=== PATIENT | male | born 1935 | race Caucasian/White ===

== ENCOUNTER 2024-10-31 17:38 | Inpatient (IN) | payer MEDICARE, SELFPAY ==
[2024-10-31] VITALS (11 sets, daily range): BP systolic 84–124; BP diastolic 51–67; PULSE 65–123; RESP 16–18; TEMP 36.6; O2SAT 94–100; BMI 21.7
--- OUTSIDE RECORDS SUMMARY | 2024-10-31 16:20 | XMS_ITS | Encounter Summary ---
Author Organization [facility] Address [address] [place] [address] Care Team Providers Care Hospice Liaison Name Role Phone Lissette Hardwick Primary Care Provider Reason for Visit * Reason Comments Follow Up Ear pain & confusion Encounter Details Date Type Department Care Team (Late st Contact Info) Description 10/31/2024 4:20 PM CDT Office Visit [facility] [place] [address] [place] [address] Funesjuly, REGISTER OF DEEDS [address] [place] [address] Confusion (Primary Dx); Loss of appetite; Ear pain, left; Other acute back pain Social History Tobacco Use Types Packs/Day Years Used Date Smoking Tobacco: Former Cigarettes Passive Smoke Exposure: Past Smokeless Tobacco: Never Tobacco Cessation:Counseling Given: No Alcohol Use Standard Drinks/Week Comments Not Currently 0 (1 standard drink = 0.6 oz pur e alcohol) Financial Resource Strain Answer Date R ecorded How hard is it for you to pa y for the very basics like food, housing, medical care, and heating? Not hard at all 11/28/2022 Food Insecurity Answer Date Recorded In the past 12 months, have you worried that your food would run out before you had money to buy more? Never true 11/28/2022 In the past 12 months, did y ou run out of food and didn't have money to buy more? Never true 11/28/2022 Transportation Needs Answer Date Record ed In the past 12 months, has l ack of transportation kept you from medical appointments or from getting medications? No 11/28/2022 Lack of Transportation (Non-Medical) Not on file 11/28/2022 Sex and Gender Information Value Date Recorded Sex Assigned at Not on file Legal Sex Male 10:39 AM CDT Gender Identity Not on file Sexual Orientation Not on file documented as of this encounter Last Filed Vital Signs Vital Sign Reading Time Taken Comments Blood Pressure 122/60 10/31/2024 4:26 PM CDT Pulse 99 10/31/2024 4:26 PM CDT Temperature 36.2 C (97.2 F) 10/31/2024 4:26 PM CDT Respiratory Rate 18 10/31/2024 4:26 PM CDT Oxygen Saturation 95% 10/31/2024 4:26 PM CDT Inhaled Oxygen Concentration - - Weight 73.5 kg (162 lb) 10/31/2024 4:26 PM CDT Height 182.9 cm (6') 10/31/2024 4:26 PM CDT Body Mass Index 21.97 10/31/2024 4:26 PM CDT documented in this encounter Progress Notes * Funes, July, REGISTER OF DEEDS - 10/31/2024 4:22 PM CDT Depression Screen Positive: PHQ-2 score >= 3 or PHQ-9 score >= 9 PHQ-2 Total: 0 (10/31/2024 4:23 PM) DEPRESSION PLAN OF CARE His depression screen was negative. (PHQ2 <3, PHQ9 <10, Lovell <11) Chief Complaint Patient presents with Follow Up Ear pain & confusion History of Present Illness The patient is an 89-year-old male who presents to the clinic for ear pain and confusion. He has been experiencing confusion, particularly in the mornings. He has been disoriented, often not recognizing his surroundings or the people around him. His condition seems to fluctuate, with periods of relative normalcy followed by increased confusion. He has been sleeping excessively during the day and becomes frustrated when unable to return home. He was last seen a week ago and appeared to be in good health at that time. However, his condition has deteriorated over the past 3 to 4 days. He has been consuming less than a bottle of water daily for the past two days and has shown interest in drinking 7-Up. He did not take his medication yesterday due to lack of food intake but managed to take them today. He reports a sudden onset of immobility two days ago, which has left him unable to walk. Prior to this, he was in good health and could move around without difficulty. He has been experiencing back pain, which is unusual for him, and describes it as a general discomfort across his entire back. He has not reported any abdominal pain. He experienced brief ringing in his left ear last night,accompanied by dizziness, but these symptoms have not recurred today. His appetite has decreased significantly, and he has not eaten anything today. He reports no difficulty or discomfort during urination. 10 point review of systems is otherwise negative except as mentioned above. Past Medical History: Diagnosis Date Diabetes mellitus (CMS/HCC) Gout HTN (hypertension) Malignant neoplasm (CMS/HCC) liver Current Outpatient Medications Medication Instructions allopurinoL (ZYLOPRIM) 300 mg, Oral, DAILY amLODIPine (NORVASC) 5 mg, Oral, DAILY ascorbic acid (vitamin C) (VITAMIN C) 500 mg, Oral, DAILY ferrous sulfate 325 mg, Oral, DAILY lisinopriL (PRINIVIL) 40 mg, Oral, DAILY metFORMIN (GLUCOPHAGE) 500 mg, Oral, TWO TIMES DAILY WITH MEALS Past Surgical History: Procedure Laterality Date HX KNEE SURGERY Right Past social, family, and medical history reviewed. BP 122/60 Pulse 99 Temp 97.2 ??F (36.2 ??C) Resp 18 Ht 6' (1.829 m) Wt 73.5 kg (162 lb) SpO2 95% BMI 21.97 kg/m?? Physical Exam Physical Exam Constitutional: Appearance: Normal appearance. HENT: Head: Normocephalic. Right Ear: Tympanic membrane and ear canal normal. Left Ear: Tympanic membrane and ear canal normal. Mouth/Throat: Mouth: Mucous membranes are moist. Eyes: Conjunctiva/sclera: Conjunctivae normal. Pupils: Pupils are equal, round, and reactive to light. Cardiovascular: Rate and Rhythm: Normal rate and regular rhythm. Pulses: Normal pulses. Heart sounds: Normal heart sounds. Pulmonary: Effort: Pulmonary effort is normal. Breath sounds: Normal breath sounds. Abdominal: General: Bowel sounds are normal. Palpations: Abdomen is soft. Musculoskeletal: General: Normal range of motion. Skin: General: Skin is warm and dry. Neurological: General: No focal deficit present. Mental Status: He is alert. Psychiatric: Mood and Affect: Mood normal. Assessment & Plan ICD-10-CM ICD-9-CM 1. Confusion R41.0 298.9 CBC WITH DIFFERENTIAL COMPREHENSIVE METABOLIC PANEL POC URINALYSIS DIPSTICK AUTOMATED 2. Loss of appetite R63.0 783.0 CBC WITH DIFFERENTIAL COMPREHENSIVE METABOLIC PANEL POC URINALYSIS DIPSTICK AUTOMATED 3. Ear pain, left H92.02 388.70 4. Other acute back pain M54.89 724.5 Plan - Confusion may be related to a urinary tract infection (UTI) or dehydration. - Unable to do labs at clinic. He is unable to give urine sample. - Discussed with his daughter and son-in-law that they could take him to [facility] to have labs done and leave urine sample for culture. Daughter is concerned that he might get worse over the weekend. Advised it would be best to take him to the ER. Daughter agrees and will take him to ER. ANGEL Valente The author of this note, patient (or authorized membership sales representative), and all other persons present consent to the audio recording of this visit for charting documentation purposes. This note was automatically generated, edited by a Quality Packing Room Worker, and finalized by MAGDA Valente. documented in this encounter Plan of Treatment Scheduled Orders Name Type Priority Associated Diagnoses Order Schedule CBC WITH DIFFERENTIAL Lab Routine Confusion Loss of appetite Expected: 10/31/2024, Expires: 10/31/2025 COMPREHENSIVE METABOLIC PANEL Lab Routine Confusion Loss of appetite Expected: 10/31/2024, Expires: 10/31/2025 POC URINALYSIS DIPSTICK AUTOMATED Point of Care Testing Routine Confusion Loss of appetite Ordered: 10/31/2024 documented as of this encounter Visit Diagnoses Diagnosis Confusion- Primary Unspecified psychosis Loss of appetite Anorexia Ear pain, left Other acute back pain documented in this encounter Care Teams Hospice Liaison Relationship Specialty Start Date End Date Lissette Hardwick DO [address] [place] [address] PCP - General Family Practice 09/04/22 documented as of this encounter
--- OUTSIDE RECORDS SUMMARY | 2024-10-31 17:51 | XMS_ITS | Clinical Summary ---
Author Organization [facility] [address] [facility] Address [address] [place] [address] Phone Care Team Providers Care Pest Control Specialist Name Role Phone Ronen Lissette Deja FUCHS Primary Care Provider Allergies No known active allergies Medications ferrous sulfate 325 mg (65 mg iron) tabletIndications :Other iron deficiency anemia Take 1 Tablet (325 mg) by mouth daily. 90 Tablet 1 09/19/2022 Active ascorbic acid, vitamin C, (Vitamin C) 500 mg tabletIndications :Other iron deficiency anemia Take 1 Tablet (500 mg) by mouth daily. 90 Tablet 1 09/19/2022 Active amLODIPine (NORVASC) 5 mg tabletIndications :Benign hypertension TAKE 1 TABLET(5 MG) BY MOUTH DAILY 100 Tablet 3 12/21/2023 Active lisinopriL (PRINIVIL) 40 mg tabletIndications :Benign hypertension Take 1 Tablet (40 mg) by mouth daily. 100 Tablet 3 01/09/2024 Active metFORMIN (GLUCOPHAGE) 500 mg tabletIndications :Type 2 diabetes mellitus without complication, without long-term current use of insulin (CMS/HCC) TAKE 1 TABLET(500 MG) BY MOUTH TWICE DAILY WITH MEALS 180 Tablet 1 06/29/2024 Active allopurinoL (ZYLOPRIM) 300 mg tabletIndications :Gout, unspecified cause, unspecified chronicity, unspecified site TAKE 1 TABLET(300 MG) BY MOUTH DAILY 90 Tablet 1 09/16/2024 Active Active Problems Problem Noted Date Diagnosed Date History of liver cancer 08/03/2021 Gout 08/03/2021 Type 2 diabetes mellitus wit hout complication, without long-term current use of insulin 08/03/2021 Benign hypertension 08/03/2021 Encounters Date Type Department Care Team Description 10/31/2024 4:20 PM CDT Office Visit [facility] [address] [place] [address] Funes, July, FILTER TANK OPERATOR Confusion (Primary Dx); Loss of appetite; Ear pain, left; Other acute back pain 10/31/2024 Telephone [facility] [address] [place] [address] Lissette Hardwick, DO Clinical Consult Before Scheduling 09/16/2024 Refill [facility] [address] [place] [address] Lissette Hardwick, Gout, unspecified cause, unspecified chronicity, unspecified site 09/10/2024 External Device Data STL ABSTRACTION Provider, Abstract 09/09/2024 External Device Data STL ABSTRACTION Provider, Abstract 08/05/2024 External Device Data STL ABSTRACTION Provider, Abstract from Last 3 Months Immunizations Immunization Administration Dates Next Due Influenza Seasonal Unspecified Formulation IM Family History Medical History Relation Name Comments Cancer Father Heart Disease Mother Relation Name Status Comments Brother 1 Brother 2 Alive Father Mother Social History Tobacco Use Types Packs/Day Years [...] on file Sexual Orientation Not on file Last Filed Vital Signs Vital Sign Reading [...] Mass Index 21.97 10/31/2024 4:26 PM CDT Plan of Treatment Health Maintenance Due Date Last Done Comments DIABETES ANNUAL FOOT EXAM 07/01/1953 DTAP/TDAP/TD VACCINES (1 - Tdap) 1956 PNEUMOCOCCAL VACCINE 50+ YEA RS (1 of 2 - PCV) 1956 ZOSTER VACCINE (1 of 2) 07/01/1987 RSV VACCINE (60+ or ) (1 - 1-dose 75+ series) 2012 DIABETES ANNUAL RETINAL EXAM 12/05/2022, 07/06/2021, 06/27/2021, Additional history exists LDL CHOLESTEROL ANNUAL 09/05/2023 09/04/2022 DIABETES MICROALBUMIN ANNUAL SCREEN 09/20/2023 09/19/2022 DIABETES HBA1C Q 6 MONTHS 06/19/20242023, 11/28/2022, 09/04/2022, Additional history exists INFLUENZA VACCINE (#1) 2024 08/03/2021, 2020 DIABETES: A1C (Auto Order) 12/17/202412/17, 11/28/2022, 09/04/2022, Additional history exists Traditional Medicare (ACO) A nnual Wellness Visit 12/18/2024 12/18/2023, 11/28/2022 Procedures Procedure Name Priority Date/Time Associated Diagnosis Comments HEMOGLOBIN A1C Routine 12/18/2023 10:22 AM CDT Medicare annual wellness visit, subsequent MICROALBUMIN/CREATI NINE RATIO, RANDOM UR Routine 09/19/2022 9:42 AM CDT Type 2 diabetes mellitus without complication, without long-term current use of insulin ([facility]) LIPID PANEL Routine 09/04/2022 11:36 AM CDT Benign hypertension DIABETES EYE EXAM Routine 06/03/2021 from Last 3 Months or Most Recently Relevant to Health Maintenance Results * HEMOGLOBIN A1C (12/18/2023 10:22 AM CDT) HEMOGLOBIN A1C 5.6 <5.7 % of total Hgb [facility] Comment: For the purpose of screening for the presence of diabetes: <5.7% Consistent with the absence of diabetes 5.7-6.4% Consistent with increased risk for diabetes (prediabetes) > or =6.5% Consistent with diabetes This assay result is consistent with a decreased risk of diabetes. Currently, no consensus exists regarding use of hemoglobin A1c for diagnosis of diabetes in children. According to [place] Diabetes Association (ADA) guidelines, hemoglobin A1c <7.0% represents optimal control in non- diabetic patients. Different metrics may apply to specific patient populations. Standards of Medical Care in Diabetes(ADA). ESTIMATED AVERAGE GLUCOSE (MG/DL) 114 mg/dL [facility] ESTIMATED AVERAGE GLUCOSE (MMOL/L) 6.3 mmol/L [facility] Comment: This test was performed on the Bryson flavio c503 platform. Effective 07/09/23, a change in test platforms from the Thakkar Executive Administrator to the Bryson flavio c503 may have shifted HbA1c results compared to historical results. Based on laboratory validation testing conducted at [facility], the Bryson platform relative to the Thakkar platform had an average increase in HbA1c value of < or = 0.3%. This difference is within accepted variability established by the National Glycohemoglobin Standardization Program. Note that not all individuals will have had a shift in their results and direct comparisons between historical and current results for testing conducted on different platforms is not recommended. FASTING:YES FASTING: YES Test Performed at: [facility] [address] [facility] [place] [address] Gregoria Trejo MD Blood 12/18/2023 10:2 2 AM CDT 12/18/2023 10:33 AM CDT Karli MENDEZP CHEMISTRY ORDERABLES Final Resul t [facility] [phone] [facility] [address] [facility] [place] [address] * (ABNORMAL) MICROALBUMIN/CREATININE RATIO, RANDOM UR (09/19/2022 9:42 AM CDT) Creatinine, Urine 89 20 - 320 mg/dL [facility] MICROALBUMIN, URINE 12.5 See Note: mg/dL [facility] Comment: Reference Range: Reference Range Not established MICROALBUMIN/CREAT RATIO, UR 140(H) <30 mcg/mg creat [facility] Comment: The ADA defines abnormalities in albumin excretion as follows: Albuminuria Category Result (mcg/mg creatinine) Normal to Mildly increased <30 Moderately increased 30-299 Severely increased > OR = 300 The ADA recommends that at least two of three specimens collected within a 3-6 month period be abnormal before considering a patient to be within a diagnostic category. Test Performed at: [facility] [address] [facility] [place] [address] Gregoria Trejo MD Urine URINE SPECIMEN OBTAINED BY CLEAN CATCH PROCEDURE / Unknown 09/19/2022 9:42 AM CDT 09/20/2022 6:59 AM CDT us Sarah Su INSTRUCTIONAL LEADER URINE ORDERABLES Final Result [facility] [phone] [facility] [address] [place] [address] [place] [address] * (ABNORMAL) LIPID PANEL (09/04/2022 11:36 AM CDT) CHOLESTEROL 158 <200 mg/dL [facility] HDL 33(L) > OR = 40 mg/dL [facility] TRIGLYCERIDE 109 <150 mg/dL [facility] LDL CALCULATED 104(H) mg/dL (calc) [facility] Comment: Reference range: <100 Desirable range <100 mg/dL for primary prevention; <70 mg/dL for patients with CHD or diabetic patients with > or = 2 CHD risk factors. LDL-C is now calculated using the Raudel calculation, which is a validated novel method providing better accuracy than the Friedewald equation in the estimation of LDL-C. Chadwick SS et al. RUBINA. 2013;310(19): 1573-3926 (http://education.INgrooves/faq/TPM785) CHOL/HDL RATIO 4.8 <5.0 (calc) [facility] TOTAL NON-HDL CHOL(LDL+VLDL) 125 <130 mg/dL (calc) [facility] Comment: For patients with diabetes plus 1 major ASCVD risk factor, treating to a non-HDL-C goal of <100 mg/dL (LDL-C of <70 mg/dL) is considered a therapeutic option. Test Performed at: [facility] [address] [facility] [place] [address] Gregoria Trejo MD Blood 09/04/2022 11:3 6 AM CDT 09/05/2022 5:13 AM CDT Sarah Su NP CHEMISTRY ORDERABLES Final Re sult [facility] [phone] [facility] [address] [place] [address] * DIABETES EYE EXAM (06/03/2021) Abstract Provider HEALTH MAINTENANCE Final Resul t from Last 3 Months or Most Recently Relevant to Health Maintenance Insurance MEDICARE PART A AND B [facility] [id number] Care Teams Pest Control Specialist Relationship Specialty Start Date End Date Lissette Hardwick DO [address] [place] [address] PCP - General Family Practice 09/04/22
--- OUTSIDE RECORDS SUMMARY | 2024-10-31 17:51 | XMS_ITS | Encounter Summary ---
Author Organization [facility] Address [address] [place] [address] Care Team Providers Care Dcs Engineer Name Role Phone Lissette Hardwick DO Primary Care Provider Reason for Visit * Reason Comments Clinical Consult Before Scheduling Encounter Details Date Type Department Care Team (Late st Contact Info) Description 10/31/2024 Telephone [facility] Family Medicine [place] [address] [place] [facility] [place] [address] Lissette Hardwick DO [address] [place] [address] Clinical Consult Before Scheduling Social History Tobacco Use Types Packs/Day Years Used Date Smoking Tobacco: Former Cigarettes Passive Smoke Exposure: Past Smokeless Tobacco: Never Alcohol Use Standard Drinks/Week Comments Not Currently [...] on file documented as of this encounter Miscellaneous Notes * Telephone Encounter - Yolette Guillen RN - 10/31/2024 8:10 AM CDT 10/31/2024 8:10 AM Adult patient complains of Confusion: patient's family notes change in mental status. Daughter isnt sure if he has a uti but says that hehas been more confused than normal. He seems to improve as the day goes on. Symptoms started last Sunday when she went to see him. Patient oriented to unable to determine as he was not on the line with me Denies recent medication changes (benadryl or OTCs, pain/sleep/anxiety meds). Denies ETOH use. Denies neurological deficits (facial droop, unilateral weakness/numbness, vision change, change in speech). Patient is not experiencing rigors. INFORMATIONAL MESSAGE ONLY. Appointment scheduled regarding this concern: 10/31/2024 Karli Funes, MAGDA {TIP Inform patient/caller - [facility] sonography technician is available . If the condition worsens or newsymptoms develop and they are concerned, they may call their providers office and our after-hour greeting will give you the option to speak with a Nurse with [facility] sonography technician. Adult patient complains of ear pain: Onset of new/worsening symptoms: sunday Affected ear(s): Left The patient has the following symptoms or concerns: [] Fever [] Sore throat [] Nasal drainage [] Sinus pressure or pain [] Drainage from ear Color: [] Recently been swimming [] Injury to ear such as trauma or putting something into ear What: [] Has tried medication or treatment at home Medications/Treatments tried: Other pertinent information: says his ear feels plugged INFORMATIONAL MESSAGE ONLY. Appointment scheduled regarding this concern: 10/31/2024 Karli Funes, MAGDA De La Vega RN * Telephone Encounter - Tanvi Latif PCA - 10/31/2024 8:08 AM CDT Copied from [facility] #[id number]. Topic: Symptomatic Care >> Oct 31, 2024 8:05 AM Tanvi Basilio wrote: Has this patient seen any provider (current or former) at the requested clinic in the past? Yes, Select the appropriate age range and symptom Patient has symptoms and is seeking care. Caller Name: rupert Lagos Callback Number: [phone] Call Notes: confused, possible dehydrated since Sunday, he has hurt his back somehow and L ear pain. Patient is not wanting to drink or eat much. Age Range/Symptom: Adult 18+ - Confusion, behaving abnormally, impaired consciousness, cannot be awakened Transferred to N line and Elzbieta answered call. documented in this encounter Plan of Treatment Not on file documented as of this encounter Visit Diagnoses Not on filedocumented in this encounter Care Teams Dcs Engineer Relationship Specialty Start Date End Date Lissette Hardwick DO [address] [place] [address] PCP - General Family Practice 09/04/22 documented as of this encounter
--- NOTE | 2024-10-31 18:00 | CTR_ITS ---
PROCEDURE INFORMATION: Exam: CT Head Without Contrast Exam date and time: 10/31/2024 6:20 PM Age: 89 years old Clinical indication: Altered mental status/memory loss; Confusion with general weakness; Additional info: Encephalopathy, altered mental status TECHNIQUE: Imaging protocol: Computed tomography of the head without contrast. Radiation optimization: All CT scans at this facility use at least one of these dose optimization techniques: automated exposure control; mA and/or kV adjustment per patient size (includes targeted exams where dose is matched to clinical indication); or iterative reconstruction. COMPARISON: No relevant prior studies available. RADIATION DOSE METRICS: Total DLP (mGy-cm): 1013.69 FINDINGS: Brain: Moderate white matter disease and volume loss are identified. There is no acute infarct or edema. No hemorrhage. Cerebral ventricles: No ventriculomegaly. Paranasal sinuses: Visualized sinuses are unremarkable. No fluid levels. Mastoid air cells: Visualized mastoid air cells are well aerated. Bones: Unremarkable. No acute fracture. Soft tissues: Unremarkable. CT/CT head wo con* [id number] IMPRESSION: There are no acute concerning abnormalities.
--- NOTE | 2024-10-31 18:00 | XRR_ITS ---
PROCEDURE INFORMATION: Exam: XR Chest Exam date and time: 10/31/2024 6:03 PM Age: 89 years old Clinical indication: Other: Weakness; Encephalopathy; AMS; Cough TECHNIQUE: Imaging protocol: Radiologic exam of the chest. Views: 1 view. COMPARISON: No relevant prior studies available. FINDINGS: Lungs: Unremarkable. No consolidation. Pleural spaces: Unremarkable. No pleural effusion. No pneumothorax. Heart/Mediastinum: Unremarkable. No cardiomegaly. Bones/joints: Unremarkable. XR/XR chest 1V portable [id number] IMPRESSION: No acute findings.
--- NOTE | 2024-10-31 18:07 | ED_ITS ---
HPI - Altered Mental Status 2 General: Chief Complaint: Altered Mental Status Stated Complaint: confusion Time Seen by Provider: 10/31/24 17:59 History of Present Illness: 89-year-old man with a history of hypert ension and diabetes who presents the emergency room with weakness and confusion. He lives at home alone and has a daughter and her who live about 15 minutes away. A few days ago they noticed he was not answering his phone. 3 days ago they went to his home and he had misplaced the phone. At that time he noticed he seemed more confused and had been complaining of some low back pain and would not hardly get up out of the chair. Confusion has not improved so he brought him in. He is alert and oriented to person but does seem a little slow in answering questions. No known fever. He does not complain of any chest pain or cough. No abdominal pain. He is slightly hypotensive on presentation with a blood pressure 86/52. Pulse was 65. Related Data Allergies Allergy/AdvReac Type Severity Reaction Status Date / Time No Known Allergies Allergy Verified 10/31/24 17:58 Review of Systems 2 Narrative: Constitutional symptoms: Negative except as documented in HPI. Skin symptoms: Negative except as documented in HPI. Eye symptoms: Negative except as documented in HPI. ENMT symptoms: Negative except as documented in HPI. Respiratory symptoms: Negative except as documented in HPI. Cardiovascular symptoms: Negative except as documented in HPI. Gastrointestinal symptoms: Negative except as documented in HPI. Genitourinary symptoms: Negative except as documented in HPI. Musculoskeletal symptoms: Negative except as documented in HPI. Neurologic symptoms: Negative except as documented in HPI. Psychiatric symptoms: Negative except as documented in HPI. Endocrine symptoms: Negative except as documented in HPI. Physical Exam 2 Narrative: General: Alert, no acute distress. Skin: Warm, dry. Head: Normocephalic, atraumatic. Neck: Supple, trachea midline. Eye: Extraocular movements are intact. Ears, nose, mouth and throat: Tacky oral mucosa Cardiovascular: Regular, Normal peripheral perfusion. Respiratory: Lungs are clear to auscultation, respirations are non-labored, breath sounds are equal, Symmetrical chest wall expansion. Gastrointestinal: Soft, Nontender, Non distended Musculoskeletal: Normal ROM, no deformity. Neurological: Little slow to answer questions but is oriented to person and place. No focal neurological deficit observed. Psychiatric: Cooperative Course 2 Vital Signs: Vital signs: Vital Signs Temperature 97.8 F 10/31/24 17:45 Pulse Rate 102 H 10/31/24 19:00 Respiratory Rate 16 10/31/24 19:00 Blood Pressure 102/63 10/31/24 19:00 Pulse Oximetry 100 10/31/24 19:00 Oxygen Delivery Me thod Room Air 10/31/24 19:00 MDM - Altered Mental Status Medical Decision Making Medical decision making: Differential diagnosis for patient presenting with generalized weakness including but not limited to and based on the above HPI, review of systems and physical exam: Sepsis. Dehydration. Renal failure. Electrolyte abnormalities. Anemia. Congestive heart failure. Hypotension. Coronary syndrome. Hepatitis. Cirrhosis. Infections such as pneumonia, urinary tract infection, [place]ne illness, Cellulitis, Viral infections including influenza and Covid-19. Workup: labwork and lab/exam driven imaging ordered to evaluate, rule in and rule out above pathologies. CT head: No acute intracranial process. no intracranial hemorrhage, no evidence of infarct. no evidence of acute fracture.This was reviewed and interpreted by myself the ER physician. Chest x-ray: No acute process. No infiltrate. No pneumothorax. This was reviewed and interpreted by myself the emergency room physician. I also reviewed the radiology report. Lab Review: Laboratory results were reviewed and interpreted by myself the emergency room physician. No leukocytosis. No anemia. Potassium is elevated at 6. BUN and creatinine are elevated at 142 and 6.8. Urinalysis shows 50-100 reds which is probably from Perdomo catheterization. However there are so 21-50 white so Rocephin is being given. I reviewed the patient's medical record. Patient has no previous visits here. No records. No lab work. Reexamination: Patient remained stable. No increased work of breathing. No significant changes in mentation. No focal motor deficits. Blood pressure has been a bit labile but systolic on admission is 120. He is dropped down a couple times into the 80s. I spoke with findings and plan at length with the patient's daughter. Consultation: I spoke Dr. Espana who agrees to admission. He recommends nephrology consultation. Consultation: I spoke with Dr. Yeager who is on-call for nephrology who will evaluate the patient. She agrees with treatment of potassium and admission to the ICU. Assessment and plan: Renal failure Hyperkalemia Dehydration Urinary tract infection Uremia Encephalopathy ? 2 L normal saline bolus ? IV Rocephin ? 10 units IV insulin, 1 amp calcium gluconate, 250 mL D10 bolus, Kayexalate -I discussed the patient with the hospitalist on-call who is admitting the patient. - Discussed findings and plan with patient. Answered any questions. - All laboratory values were reviewed and interpreted personally by myself, the ER physician - All imaging was reviewed and interpreted personally by myself, the ER physician. - Evaluation and treatment of this problem were appropriate in the emergency setting Critical Care: -I spent a total of >35 minutes of critical care time managing the patient, independent of any other practitioner. -The time involved in the performance of separately reportable procedures was not counted towards critical care time. Lab Data 10/31/24 18:11 10/31/24 18:11 Radiology Impressions Chest X-Ray 10/31/24 18:00 IMPRESSION: No acute findings. Head CT 10/31/24 18:00 IMPRESSION: There are no acute concerning abnormalities. Abdomen/Pelvis CT 10/31/24 19:15 IMPRESSION: There are no acute concerning abnormalities. Laboratory Results WBC 10.00 10^3/uL (3.29-11.43) 10/31/24 18:11 RBC 4.20 10^6/uL (3.85-5.65) 10/31/24 18:11 Hgb 12.90 g/dL (11.27-16.99) 10/31/24 18:11 Hct 37.5 % (37-53) 10/31/24 18:11 MCV 89.3 fl (82-101) 10/31/24 18:11 MCH 30.7 pg (27-33) 10/31/24 18:11 MCHC 34.4 g/dL (30-55) 10/31/24 18:11 RDW 13.6 % (12.1-15.1) 10/31/24 18:11 Plt Count 167 10^3/cmm (157-399) 10/31/24 18:11 MPV 11.2 fL (7.4-10.4) H 10/31/24 18:11 Neut % (Auto) 80.7 % 10/31/24 18:11 Lymph % (Auto) 11.7 % 10/31/24 18:11 [place] % (Auto) 6.1 % 10/31/24 18:11 Eos % (Auto) 0.9 % 10/31/24 18:11 Baso % (Auto) 0.2 % 10/31/24 18:11 Neut # (Auto) 8.07 10^3/uL (1.8-7.7) H 10/31/24 18:11 Lymph # (Auto) 1.2 10^3/uL (0.8-4.8) 10/31/24 18:11 [place] # (Auto) 0.6 10^3/uL (0.2-0.9) 10/31/24 18:11 Eos # (Auto) 0.1 10^3/uL (0.0-0.8) 10/31/24 18:11 Baso # (Auto) 0.0 10^3/uL (0.0-0.1) 10/31/24 18:11 Nucleated RBC % (auto) 0 % 10/31/24 18:11 Nucleated RBCs # 0.0 /100WBC 10/31/24 18:11 Sodium 134 mmol/L (136-145) L 10/31/24 18:11 Potassium 6.0 mmol/L (3.5-5.1) H 10/31/24 18:11 Chloride 100 mmol/L (98-107) 10/31/24 18:11 Carbon Dioxide 12 mmol/L (22-29) L 10/31/24 18:11 Anion Gap 28.0 (5-19) H 10/31/24 18:11 BUN 142 mg/dL (8-23) H* 10/31/24 18:11 Creatinine 6.8 mg/dL (0.7-1.2) H* 10/31/24 18:11 GFR Calculation Not Reportable 10/31/24 18:11 Glucose 144 mg/dL (65-115) H 10/31/24 18:11 Calculated Osmolality 327 mOsm/kg (285-295) H 10/31/24 18:11 Lactic Acid 1.9 mmol/L (0.5-2.2) 10/31/24 18:11 Calcium 9.2 mg/dL (8.5-10.5) 10/31/24 18:11 Total Bilirubin 0.4 mg/dL (0.15-1.2) 10/31/24 18:11 AST 8 U/L (0-40) 10/31/24 18:11 ALT 9 U/L (0-41) 10/31/24 18:11 Alkaline Phosphatase 99 U/L (40-130) 10/31/24 18:11 C-Reactive Protein 6.7 mg/L (0.0-4.9) H 10/31/24 18:11 Total Protein 7.2 g/dL (6.6-8.7) 10/31/24 18:11 Albumin 4.3 g/dL (3.5-5.2) 10/31/24 18:11 Globulin 2.9 g/dL (1.3-4.6) 10/31/24 18:11 Urine Color [place] (Yellow) A 10/31/24 19:05 Urine Appearance Cloudy (CLEAR) A 10/31/24 19:05 Urine pH 5.0 (5-7) 10/31/24 19:05 Ur Specific [place] 1.016 (1.005-1.030) 10/31/24 19:05 Urine Protein Trace (Negative) A 10/31/24 19:05 Urine Glucose (UA) Negative (Normal) 10/31/24 19:05 Urine Ketones Trace (Negative) 10/31/24 19:05 Urine Blood 3+ (Negative) A 10/31/24 19:05 Urine Nitrate Negative (Negative) 10/31/24 19:05 Urine Bilirubin Negative (Negative) 10/31/24 19:05 Urine Urobilinogen 1.0 mg/dL (Negative) 10/31/24 19:05 Ur Leukocyte Esterase 2+ (Negative) A 10/31/24 19:05 Urine RBC 51-100 /hpf (0-2) H 10/31/24 19:05 Urine WBC 21-50 /hpf (0-5) H 10/31/24 19:05 Ur Squamous Epith Cells 0-5 /hpf (0-5) 10/31/24 19:05 Amorphous Sediment 1+ /hpf 10/31/24 19:05 Urine Bacteria Trace /hpf (NONE) 10/31/24 19:05 Hyaline Casts 54.20 /lpf 10/31/24 19:05 All radiology interpretation(s) finalized by discharge Discharge Plan Discharge Patient Disposition: Admitted As Inpatient Clinical Impression: Renal failure, Acute hyperkalemia, Urinary tract infection, Dehydration, Uremia, Encephalopathy Condition: Stable Coding Level of Care Code ED Licensed Final Expense Agents for Malissa Peters
[2024-10-31 18:24] LABS: Hematocrit 37.5 % (37-53); Hemoglobin 12.90 g/dL (11.27-16.99); Mean Corpuscular HGB Conc 34.4 g/dL (30-55); Mean Corpuscular Hemoglobin 30.7 pg (27-33); Mean Corpuscular Volume 89.3 fl (82-101); Nucleated Red Blood Cells % 0 %; Platelet Count 167 10^3/cmm (157-399); Red Blood Count 4.20 10^6/uL (3.85-5.65); White Blood Count 10.00 10^3/uL (3.29-11.43)
[2024-10-31 18:41] LABS: Lactic Sepsis W/Reflex 1.9 mmol/L (0.5-2.2)
[2024-10-31 18:42] LABS: Alanine Aminotransferase 9 U/L (0-41); Albumin Level 4.3 g/dL (3.5-5.2); Alkaline Phosphatase 99 U/L (40-130); Aspartate Amino Transferase 8 U/L (0-40); Calcium 9.2 mg/dL (8.5-10.5); Carbon Dioxide 12 mmol/L (22-29); Chloride 100 mmol/L (98-107); Creatinine Clr Calc Pharmacy 8.1827; Globulin 2.9 g/dL (1.3-4.6); Glucose 144 mg/dL (65-115); Sodium 134 mmol/L (136-145); Total Protein 7.2 g/dL (6.6-8.7)
[2024-10-31 19:04] LABS: Osmolality Calculated 327 mOsm/kg (285-295)
[2024-10-31 19:05] LABS: Anion Gap 28.0 (5-19); Potassium 6.0 mmol/L (3.5-5.1)
[2024-10-31 19:06] LABS: Blood Urea Nitrogen 142 mg/dL (8-23)
[2024-10-31 19:09] LABS: Glucose Urine UA Negative (Normal); Nitrate Urine Negative (Negative); Specific Gravity, Urine 1.016 (1.005-1.030)
--- NOTE | 2024-10-31 19:15 | CTR_ITS ---
PROCEDURE INFORMATION: Exam: CT Abdomen And Pelvis Without Contrast Exam date and time: 10/31/2024 7:26 PM Age: 89 years old Clinical indication: Abnormal findings; Abnormal lab test; Abnormal kidney function lab tests; Prior surgery; Surgery date: 6+ months; Surgery type: Gb; Acute renal failure with hematuria. ; Additional info: Renal failure, R/O obstructive uropathy TECHNIQUE: Imaging protocol: Computed tomography of the abdomen and pelvis without contrast. Radiation optimization: All CT scans at this facility use at least one of these dose optimization techniques: automated exposure control; mA and/or kV adjustment per patient size (includes targeted exams where dose is matched to clinical indication); or iterative reconstruction. COMPARISON: CR (CHEST, ) 10/31/2024 6:03 PM RADIATION DOSE METRICS: Total DLP (mGy-cm): 436.94 FINDINGS: Liver: There has been partial right hepatectomy. There has been partial hepatectomy. No bowel obstruction. Gallbladder and biliary ducts: There has been cholecystectomy. Pancreas: Normal. No ductal dilation. Spleen: Normal. No splenomegaly. Adrenal glands: Normal. No mass. Kidneys and ureters: Normal. No hydronephrosis. Stomach and bowel: There has been partial colectomy. No bowel obstruction or wall thickening. Appendix: No evidence of appendicitis. Intraperitoneal space: Unremarkable. No free air. No significant fluid collection. Vasculature: There is vascular atherosclerotic calcifications. Lymph nodes: Unremarkable. No enlarged lymph nodes. Urinary bladder: Unremarkable as visualized. Reproductive: The prostate is enlarged and measures 5.7 cm in diameter. Bones/joints: Degenerative change is identified in the spine. There is no evidence for acute fracture or malalignment. Soft tissues: There is a periumbilical hernia containing small bowel. CT/CT abdomen pelvis wo con [id number] IMPRESSION: There are no acute concerning abnormalities.
[2024-10-31 19:23] LABS: UA Slide Review UA Slide Review Perf
[2024-10-31] MEDS: cefTRIAXone 1,000 mg SDV 1000 MG IVP (20:14)
--- NOTE | 2024-10-31 20:45 | ECG_ITS ---
[facility] Test Date: 2024-10-31 Pat Name: Vladimir Salgado Department: Room: Gender: Male [employer] Operator: : 1935 Requested By: Cuauhtemoc Espana Order Number: [id number] Anya MD: Judson Wiggins M.D. Measurements Intervals [place] Rate: 101 P: 61 NH: 180 QRS: 79 QRSD: 89 T: 63 QT: 345 QTc: 448 Interpretive Statements SINUS TACHYCARDIA No previous ECG available for comparison Electronically Signed On 11-04-2024 14:59:16 CDT by Judson Wiggins M.D. [id number] [id number]
[2024-10-31 21:15] LABS: ABG PCO2 25.4 mmHg (35-45); ABG PH Result 7.20 (7.35-7.45); Alveolar-Arterial Oxygen Gradi 3.0 mmHg (5-10); Arterial Blood Gas Hematocrit 36.3 % (42-52); Blood Gas Operator Identificat JDB; Blood Gas Sample Site Brachial, right; Blood Gas Sample Type Arterial; Carboxyhemoglobin 0.7 %THgb (0.4-20.1); Glucose Level-ABG 113.0 mg/dL (70-115); HCO3 ABG 9.9 mmol/L (22-26); Ionized Calcium Level - ABG 1.2 mmol/L (1.1-1.4); Methemoglobin 1.0 % (0.4-1.5); Oxygen Saturation ABG 97.1; PO2 ABG 92.6 mmHg (80.0-100.0); PO2 FiO2 Ratio Arterial Blood 440; Potassium Level - ABG 4.9 mmol/L (3.5-5.0); Sodium Level - ABG 135.0 mmol/L (131-143)
--- NOTE | 2024-10-31 21:27 | P.HP_ITS ---
Providers/Chief Complaint 2 Admitting Physician: Bhaskar Machado MD Chief Complaint: confusion History of Present Illness Vladimir Salgado is a 89 year old male With past medical history of hypertension, type 2 diabetes mellitus who follows up with PCP at [facility] was brought into the ER today by his daughter and son-in-law because of worsening confusion over the last 4 days. Patient lives by himself at baseline. Last known well was a week ago. As per the daughter who was at bedside they were trying to get in touch with him for over 3 days but when they could not get him the response over the phone they drove to his house where they saw him sitting up in the chair slightly confused. They got the patient to their house on Sunday. Today is Sunday. Since then they have been trying to feed and make him drink more liquid but as he was not improving not make making much urine they brought him to the ER. In the ER he was found to have renal failure, hyperkalemia Review of Systems 2 General: Reports: 10 or more systems reviewed and unremarkable except in HPI and below Const: Denies: fever(s), chills, body aches, change in appetite, change in weight, malaise, night sweats, diaphoresis, change in sleep pattern, daytime sleepiness or snoring Eyes: Denies: change in vision, blurry vision, photophobia, eye discomfort or eye discharge ENMT: Denies: throat pain, enlarged tonsils, hoarseness, mouth pain, oral sores, dry mouth, tinnitus, nasal congestion or post nasal drip Card: Denies: chest pain, palpitations, irregular heart rhythm, edema, swelling of feet/ankles, lightheadedness, syncope, pre-syncope, dyspnea on exertion, orthopnea, leg pain with exertion or acrocyanosis Resp: Denies: dyspnea, productive cough, non-productive cough, wheezing, stridor, pain on inspiration, change in phlegm color, hemoptysis or chest congestion GI: Denies: abdominal pain, nausea, vomiting, hematemesis, coffee ground emesis, dysphagia, heartburn, diarrhea, constipation, bloating, GI cramping, change in bowel habits, pain on defecation, hematochezia or melena : Denies: flank pain, difficulty urinating, dysuria, urinary frequency, urinary urgency, urinary hesitancy, urinary dribbling, difficulty starting urination, change in urine stream, nocturia or hematuria Musc: Denies: neck pain, back pain, extremity pain, joint pain, joint swelling, joint redness, joint stiffness or limited range of motion Neuro: Denies: headache(s), numbness in extremities, weakness in extremities, sensory changes, lack of coordination, difficulty walking, frequent falls, dizziness, vertigo, confusion, Slurred speech present, difficulty communicating thoughts or seizure-like activity Psych: Denies: anxiety, depression, mood swings, panic attacks, hopelessness or irritability Endo: Denies: polyuria, polydipsia, tired all the time, cold intolerance, excessive sweating, flushing or heat intolerance [place]/Lymph: Denies: easy bruising or easy bleeding All/Imm: Denies: tongue swelling, facial swelling or acute wheezing Medications/Allergies Allergies Allergy/AdvReac Type Severity Reaction Status Date / Time No Known Allergies Allergy Verified 10/31/24 17:58 PFSH Acute 2 PFSH: Medical History (Updated 10/31/24 @ 21:32 by Cuauhtemoc Espana MD) History of colon cancer History of renal cell carcinoma Type 2 diabetes mellitus Hypertension Surgical History (Updated 10/31/24 @ 21:32 by Cuauhtemoc Espana MD) History of resection of liver History of partial colectomy History of partial nephrectomy Vitals/I&O/Wt Last Vital Signs Temp 97.8 F 10/31/24 17:45 Pulse 102 H 10/31/24 19:00 Resp 16 10/31/24 19:00 BP 102/63 10/31/24 19:00 Pulse Ox 100 10/31/24 19:00 O2 Del Method Room Air 10/31/24 19:00 10/31/24 10/31/24 10/31/24 06:59 14:59 22:59 Intake Total 1000 / 1000 Balance 1000 / 1000 Weight last 48 hrs Weight 72.575 kg Physical Exam 2 Narrative: General: No acute distress, AO x3, sunken eyes, bitemporal wasting, dehydrated, chronically sick appearing HEENT: PERRLA, pupils bilaterally equal and reactive Chest: Normal vesicular breath sounds, no added sounds, equal good air entry bilaterally CVS: S1-S2 regular, no murmurs, no tachycardia, no gallops, no rubs Abdomen: Soft, nontender, no organomegaly, bowel sounds present Neuro: No focal deficits, no facial deformity, AO x3, power 3/5 in all limbs Data 10/31/24 18:11 10/31/24 18:11 Micro: Microbiology 10/31/24 18:14 Blood Culture - Preliminary Blood SPECIMEN COLLECTED 10/31/24 18:11 Blood Culture - Preliminary Blood SPECIMEN COLLECTED A&P Assessment and plan 1. Encephalopathy: Most likely in setting of uremia and hyperkalemia. Infectious cause less likely. Stroke less likely. Will check CT head. LFTs within normal limits. Frequent reorientation. 2. Renal failure: Not sure of medication which the patient is on. Possibly on lisinopril. Medical reconciliation done for nephrotoxic drugs. Patient does not remember being told of kidney problems in the past. 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 Currently in renal failure with metabolic acidosis, uremia. Nephrology consult. ABG stat. Bicarb drip at 100 cc/h. Perdomo catheterization. Strict input output charting, daily weights. Check urine lites, urine creatinine, urine eosinophil, appreciate UA, check hepatitis panel, SPEP UPEP. CT abdomen pelvis negative for obstructive nephropathy 3. Acute hyperkalemia: Potassium of 6. Stat EKG. Will treat with D10 and 10 units of insulin, Kayexalate 30 g one-time, calcium gluconate 1 g IV one-time. Monitor BMP every 6 hour. 4. Uremia: 5. High anion gap metabolic acidosis: Bicarb drip as above. 6. Hypertension: Goal blood pressure less than 140/90 mmHg. Hypotensive on admission. Most likely in setting of dehydration. Continue to monitor blood pressures. Goal blood pressure with mean over 65. Continue to monitor. 7. Type 2 diabetes mellitus: Check A1c. Insulin sliding scale at low-dose protocol if needed. Plan: CODE STATUS: Discussed in detail with the patient. Daughter and son-in-law will be the DPOA. Patient is agreeable to be full code for now. He would like to think further before making any decision for now. In case if needed he is also agreeable for dialysis. Famotidine for PUD prophylaxis Renal dialysis diet Heparin 5000 every 12 hourly for DVT prophylaxis PDMP PDMP Reviewed: Not Reviewed Attestations 2 Medical Necessity Statement*: Admission for more than 2 midnights for management of acute renal failure with uremia, high-end of metabolic acidosis, hyperkalemia leading to encephalopathy Critical Care Time: The high probability of a clinically significant, sudden or life threatening deterioration of the patient's [cardiac, renal] system(s) required my full and direct attention, intervention and personal management. The critical care time is as shown. This time is in addition to time spent performing any reported procedures but includes the following: [x] Data and vital sign review and interpretation [x] Patient assessment, examination and intervention [x] Documentation [x] Medication orders and management Critical Care Time (min): 65 Coding Level of Care Code Critical Care >/= 30 minutes Critical care time (in minutes): 65 The high probability of a clinically significant, sudden or life threatening deterioration, as referenced in this documentation, required my full and direct attention, intervention and personal management. The critical care time shown is in addition to time spent performing any reported separately billable procedures and includes the following: [x] Data and vital sign review and interpretation [x ] Patient assessment, examination and intervention [x] Medication orders and management [x] Patient/Family updates as able [x] Care Coordination and Documentation. Diagnoses Encephalopathy G93.40 Renal failure N19 Acute hyperkalemia E87.5 Uremia N19 High anion gap metabolic acidosis E87.29 Hypertension I10 Type 2 diabetes mellitus E11.9
[2024-10-31] MEDS: calcium gluconate 0.1 gm/mL 10% SDV 10mL 1 GM IVP (21:35)
[2024-10-31 21:36] LABS: Anion Gap 25.3 (5-19); Calcium 8.2 mg/dL (8.5-10.5); Carbon Dioxide 10 mmol/L (22-29); Chloride 104 mmol/L (98-107); Creatinine Clr Calc Pharmacy 9.1217; Glucose 112 mg/dL (65-115); Potassium 5.3 mmol/L (3.5-5.1); Sodium 134 mmol/L (136-145)
[2024-10-31 21:38] LABS: Lactic Sepsis W/Reflex 0.7 mmol/L (0.5-2.2)
[2024-10-31 21:42] LABS: Procalcitonin 0.19 ng/mL (0-0.5)
[2024-10-31 21:55] LABS: Osmolality Calculated 322 mOsm/kg (285-295)
[2024-10-31 21:56] LABS: Blood Urea Nitrogen 135 mg/dL (8-23)
[2024-10-31 22:06] LABS: Thyroid Stimulating Hormone 2.29 uIU/mL (0.27-4.20)
[2024-10-31 22:08] LABS: Estmated Average Glucose 126; Hemoglobin A1C 6.0 % (4.0-6.0)
--- NOTE | 2024-10-31 22:13 | PM.CONSULT ---
Providers/Reason For Consult Consulting Physician/Specialty*: kailyn/Nephrology Reason for Consult*: GUS Attending Physician: Cuauhtemoc Espana MD History of Present Illness History of Present Illness Vladimir Salgado is a 89 year old male Patient is 89-year-old male with past medical history of hypertension, type 2 diabetes was brought to the emergency department due to altered mental status. Also noted to have poor p.o. intake. Patient is a poor historian. The emergency department he was noted to be tachycardic, blood pressures borderline low. Lab data significant for sodium of 134 potassium of 6.0 CO2 of 12 BUN of 142 and creatinine of 6.8. Review of Systems Narrative: cannot obtain full ROS Medications/Allergies Home Medications ?Medication ?Instructions ?Recorded ?Confirmed ?Last Taken ?Type allopurinol 300 mg tablet 300 mg PO DAILY 11/01/24 11/01/24 10/31/24 History amlodipine 5 mg tablet 5 mg PO DAILY 11/01/24 11/01/24 10/31/24 History dorzolamide 22.3 mg-timolol 6.8 1 drp ophthalmic (eye) BID 11/01/24 11/01/24 10/31/24 History mg/mL eye drops lisinopril 40 mg tablet 40 mg PO DAILY 11/01/24 11/01/24 10/31/24 History metformin 500 mg tablet 500 mg PO BID 11/01/24 11/01/24 10/31/24 History Allergies Allergy/AdvReac Type Severity Reaction Status Date / Time No Known Allergies Allergy Verified 10/31/24 17:58 Current Medications Generic Name Dose Route Start Last Admin Trade Name Freq PRN Reason Stop Dose Admin Dextrose 250 mls @ 1,000 mls/hr 10/31/24 20:26 10/31/24 21:36 D10w IV 1,000 mls/hr PRN PRN Administration HYPOGLYCEMIA Sodium Bicarbonate 150 meq/ 1,150 mls @ 100 mls/hr 10/31/24 21:00 10/31/24 21:39 Dextrose IV 100 mls/hr .[id number] KALYANI Administration PFSH Acute PFSH: Medical History (Updated 11/01/24 @ 09:27 by Namita Gillette MD) History of colon cancer History of renal cell carcinoma Type 2 diabetes mellitus Hypertension Surgical History (Updated 10/31/24 @ 21:32 by Cuauhtemoc Espana MD) History of resection of liver History of partial colectomy History of partial nephrectomy Vitals/I&O/Wt Last Vital Signs Temp 97.8 F 10/31/24 17:45 Pulse 102 H 10/31/24 19:00 Resp 16 10/31/24 19:00 BP 102/63 10/31/24 19:00 Pulse Ox 100 10/31/24 19:00 O2 Del Method Room Air 10/31/24 19:00 10/31/24 10/31/24 10/31/24 06:59 14:59 22:59 Intake Total 1000 / 1000 Balance 1000 / 1000 Weight last 48 hrs Weight 72.575 kg Physical Exam Narrative: Awake , confused PEERLA S1S2 RRR per report Lungs clear per reprot Abd - oft , non tender per report Ext - no edema Data 11/01/24 05:18 11/01/24 05:18 Micro: Microbiology 10/31/24 18:14 Blood Culture - Preliminary Blood SPECIMEN COLLECTED 10/31/24 18:11 Blood Culture - Preliminary Blood SPECIMEN COLLECTED A&P Assessment and plan 1. GUS (acute kidney injury): 1. Acute kidney injury: Associated with severe hyperkalemia and metabolic acidosis, likely prerenal etiology -Check renal ultrasound, urine electrolytes and urine analysis and UPCR -Baseline labs not available, started on bicarbonate drip and repeat labs show improvement. No acute indication for dialysis currently but if no improvement will likely need to start hemodialysis. 2. History of hypertension holding lisinopril 3. History of diabetes hold, holding metformin 4. Anion gap metabolic acidosis: In the setting of poor p.o. intake, on bicarbonate drip 5. Severe hyperkalemia: Medical management, low K diet Patient evaluated using audiovisual cart. Time spent 40 minutes PDMP PDMP Reviewed: Not Reviewed Consult Attestations Medical Necessity Statement[facility] C[facility] Level of Care Code Acute Code for [facility] Fwd Diagnoses GUS (acute kidney injury) N17.9
[2024-10-31] MEDS: insulin regular-human 100 units/1 mL 10 UNIT IVP ×2 (22:19→22:20)
[2024-11-01] VITALS (69 sets, daily range): BP systolic 58–164; BP diastolic 36–99; PULSE 68–122; RESP 12–33; TEMP 36.3–36.8; O2SAT 91–100
[2024-11-01] MEDS: heparin 5,000 unit/mL INJ 1 mL 5000 UNIT SUBCUT ×2 (00:57→11:59)
[2024-11-01 01:13] LABS: Iron 77 ug/dL (59-158); Total Iron Binding Capacity 184 mcg/dl; Unsaturated Iron Binding 107 ug/dL (112-347)
[2024-11-01 01:43] LABS: Anion Gap 25.1 (5-19); Calcium 8.5 mg/dL (8.5-10.5); Carbon Dioxide 11 mmol/L (22-29); Chloride 103 mmol/L (98-107); Creatinine Clr Calc Pharmacy 11.3211; Glucose 82 mg/dL (65-115); Potassium 4.1 mmol/L (3.5-5.1); Sodium 135 mmol/L (136-145)
[2024-11-01 01:51] LABS: Osmolality Calculated 319 mOsm/kg (285-295)
[2024-11-01 01:54] LABS: Blood Urea Nitrogen 125 mg/dL (8-23)
[2024-11-01 01:58] LABS: Vitamin B12 394 pg/mL (232-1245)
--- NOTE | 2024-11-01 04:19 | PC.NURSE ---
Pt confused and only able to tell this nurse his name and . Pt has stated he does not know what state we are in sometimes, other times, pt states we are in [place]. Pt unable to tell this nurse what year it is. Pt states It's 19-something . This nurse has told pt we are in [place], [place] and that it is 2024 after every neuro check. Pt continually removing BP cuff and EKG leads despite being educated on why they need to be placed.
[2024-11-01 05:26] LABS: Hematocrit 33.2 % (37-53); Hemoglobin 11.90 g/dL (11.27-16.99); Mean Corpuscular HGB Conc 35.8 g/dL (30-55); Mean Corpuscular Hemoglobin 31.2 pg (27-33); Mean Corpuscular Volume 87.1 fl (82-101); Nucleated Red Blood Cells % 0 %; Platelet Count 116 10^3/cmm (157-399); Red Blood Count 3.81 10^6/uL (3.85-5.65); White Blood Count 7.22 10^3/uL (3.29-11.43)
[2024-11-01 05:45] LABS: Alanine Aminotransferase 8 U/L (0-41); Albumin Level 3.6 g/dL (3.5-5.2); Alkaline Phosphatase 80 U/L (40-130); Anion Gap 23.8 (5-19); Aspartate Amino Transferase 8 U/L (0-40); Calcium 8.3 mg/dL (8.5-10.5); Carbon Dioxide 13 mmol/L (22-29); Chloride 103 mmol/L (98-107); Creatinine Clr Calc Pharmacy 13.2079; Globulin 2.3 g/dL (1.3-4.6); Glucose 121 mg/dL (65-115); Magnesium 1.5 mg/dL (1.7-2.3); Potassium 3.8 mmol/L (3.5-5.1); Sodium 136 mmol/L (136-145); Total Protein 5.9 g/dL (6.6-8.7)
[2024-11-01 05:46] LABS: Cholesterol 115 mg/dL (0-200); HDL Cholesterol 28 mg/dL (60-100); Triglycerides 145 mg/dL (0-150)
[2024-11-01 05:51] LABS: Procalcitonin 0.18 ng/mL (0-0.5)
[2024-11-01 05:56] LABS: Osmolality Calculated 322 mOsm/kg (285-295)
[2024-11-01 05:57] LABS: Blood Urea Nitrogen 120 mg/dL (8-23)
--- NOTE | 2024-11-01 10:42 | P.PN_ITS ---
Subjective 2 Subjective: remains confused Medications: Reviewed: Yes Vitals/I&O/Wt Last Vital Signs Temp 98.3 F 11/01/24 00:30 Pulse 105 H 11/01/24 08:00 Resp 17 11/01/24 08:00 BP 86/64 11/01/24 07:00 Pulse Ox 94 11/01/24 07:00 O2 Del Method Room Air 11/01/24 01:55 10/31/24 11/01/24 11/01/24 22:59 06:59 14:59 Intake Total 2500 / 2500 1013.333 / 3513.333 100 / 100 Output Total 550 / 550 Balance 2500 / 2500 463.333 / 2963.333 100 / 100 Weight last 48 hrs Weight 72 kg Weight 72.575 kg Physical Exam 2 Narrative: Awake , confused PEERLA S1S2 RRR per report Lungs clear per reprot Abd - oft , non tender per report Ext - no edema Urinary Catheter Management: Perdomo: Cath Placed During This Visit: yes Reason for Continuing Indwelling Catheter: Accurate Measurement of Urinary Output in Critically Ill Patients Urinary Catheter Date of Insertion: 11/01/24 Urinary Catheter Time of Insertion: 00:01 Data 11/01/24 05:18 11/01/24 05:18 Micro: Microbiology 10/31/24 18:14 Blood Culture - Preliminary Blood SPECIMEN COLLECTED 10/31/24 18:11 Blood Culture - Preliminary Blood SPECIMEN COLLECTED A&P Assessment and plan 1. GUS (acute kidney injury): 1. Acute kidney injury: Associated with severe hyperkalemia and metabolic acidosis, likely prerenal etiology -CT abd , no hydronephrosis , UA with trace protein , + blood , Urine electrolytes pending , add serologies -Baseline labs not available, started on bicarbonate drip . No acute indication for dialysis currently and renal fxn improving with IVFs 2. History of hypertension holding lisinopril 3. History of diabetes hold, holding metformin 4. Anion gap metabolic acidosis: In the setting of poor p.o. intake, on bicarbonate drip 5. Severe hyperkalemia: Medical management, low K diet Patient evaluated using audiovisual cart. Time spent 40 minutes PDMP PDMP Reviewed: Not Reviewed Attestations 2 Medical Necessity Statement*: per [facility] Coding Level of Care Code Acute Code for [facility] Diagnoses GUS (acute kidney injury) N17.9
[2024-11-01] MEDS: magnesium sulfate premix 1 GM/100 ML PIGGYBACK IV (10:45)
[2024-11-01 10:46] LABS: PCP Screen Urine Negative (Negative)
[2024-11-01 10:50] LABS: Potassium, Radom Urine 11 mmol/L; Urine Random Chloride 45 mmol/L; Urine Random Sodium 52 mmol/L
[2024-11-01] MEDS: dexmedeTOMIDine 0.9 % NaCL 400 MCG/100 ML PREMIX IV (11:04)
[2024-11-01] MEDS: haloperidol inj 5 mg/mL INJ 1 mL 1 MG IM (11:59)
[2024-11-01] MEDS: erythromycin Op Oint 1 gm 1 APPLIC EYE-BOTH ×4 (12:00→21:05)
[2024-11-01] MEDS: norepinephrine 4 MG/250 ML BAG 15 MG IV (13:55)
--- NOTE | 2024-11-01 15:31 | P.PN_ITS ---
Subjective 2 Subjective: Overnight patient has had few episodes of hypotension with blood pressure in high 80s to low 90s systolic. Today morning examination patient is awake but confused. Awake and alert to himself, seems to be having visual hallucinations. Later in the day seen with daughter at bedside. Remains on room air. Urine output of only 550 cc. Vitals/I&O/Wt Last Vital Signs Temp 98.3 F 11/01/24 00:30 Pulse 68 11/01/24 14:00 Resp 21 H 11/01/24 13:50 BP 113/57 11/01/24 14:00 Pulse Ox 94 11/01/24 07:00 O2 Del Method Room Air 11/01/24 14:00 11/01/24 11/01/24 11/01/24 06:59 14:59 22:59 Intake Total 1013.333 / 3513.333 3360.45 / 3360.45 5.75 / 3366.20 Output Total 550 / 550 Balance 463.333 / 2963.333 3360.45 / 3360.45 5.75 / 3366.20 Weight last 48 hrs Weight 72 kg Weight 72.575 kg Physical Exam 2 Narrative: General: No acute distress, confused, AO x 1 to 2, sunken eyes, bitemporal wasting, dehydrated, chronically sick appearing HEENT: PERRLA, pupils bilaterally equal and reactive Chest: Normal vesicular breath sounds, no added sounds, equal good air entry bilaterally CVS: S1-S2 regular, no murmurs, no tachycardia, no gallops, no rubs Abdomen: Soft, nontender, no organomegaly, bowel sounds present Neuro: No focal deficits, no facial deformity, AO x3, power 3/5 in all limbs Urinary Catheter Management: Perdomo: Cath Placed During This Visit: yes Reason for Continuing Indwelling Catheter: Accurate Measurement of Urinary Output in Critically Ill Patients Urinary Catheter Date of Insertion: 11/01/24 Urinary Catheter Time of Insertion: 00:01 Data 11/02/24 04:13 11/02/24 04:13 Micro: Microbiology 10/31/24 18:14 Blood Culture - Preliminary Blood SPECIMEN COLLECTED 10/31/24 18:11 Blood Culture - Preliminary Blood SPECIMEN COLLECTED A&P Assessment and plan 1. Encephalopathy: Most likely in setting of uremia. Infectious cause less likely. Stroke less likely. Will check CT head if does not improve in next 24 hours. LFTs within normal limits. Frequent reorientation. Sitter if needed. Haldol 1 mg every 4 hours as needed. Can try Precedex drip. 2. Renal failure: Appreciate medical reconciliation. Most likely a combination of lisinopril, metformin. Medical reconciliation done for nephrotoxic drugs. Patient does not remember being told of kidney problems in the past. 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 Currently in renal failure with metabolic acidosis, uremia. Appreciate nephrology recommendations. Continue bicarb drip at 100 cc/h. Perdomo catheterization. Strict input output charting, daily weights. Appreciate urine lites, urine creatinine, urine eosinophil, urinalysis. Will request repeat urinalysis. CT on pelvis negative for obstructive nephropathy. 3. Hypotension: Maintain mean over 65. Hypotensive earlier in the day. Most likely in setting of dehydration. If not able to maintain can plan of Levophed depending on the goals of blood pressure. 4. Acute hyperkalemia: Monitor every 12 hourly. Treatment according to goal of potassium around 4. 5. Uremia: 6. High anion gap metabolic acidosis: Bicarb drip as above. 7. Hypertension: Goal blood pressure less than 140/90 mmHg. 8. Type 2 diabetes mellitus: Appreciate A1c. Will hold off on sliding scale. Hypoglycemia protocol. Plan: CODE STATUS: Discussed in detail with the patient. Daughter and son-in-law will be the DPOA. Patient is agreeable to be full code for now. He would like to think further before making any decision for now. In case if needed he is also agreeable for dialysis. Famotidine for PUD prophylaxis Clear liquid diet Heparin 5000 every 12 hourly for DVT prophylaxis PDMP PDMP Reviewed: Last Reviewed 11/02/24 10:03 by Cuauhtemoc Espana MD Attestations 2 Medical Necessity Statement*: Requires further hospitalization for management of metabolic encephalopathy in setting of uremia due to renal failure, high anion gap metabolic acidosis, hypotension. Critical Care Time: The high probability of a clinically significant, sudden or life threatening deterioration of the patient's [renal, cardiac] system(s) required my full and direct attention, intervention and personal management. The critical care time is as shown. This time is in addition to time spent performing any reported procedures but includes the following: [x] Data and vital sign review and interpretation [x] Patient assessment, examination and intervention [x] Documentation [x] Medication orders and management Critical Care Time (min): 70 Coding Level of Care Code Critical Care >/= 30 minutes Critical care time (in minutes): 70 The high probability of a clinically significant, sudden or life threatening deterioration, as referenced in this documentation, required my full and direct attention, intervention and personal management. The critical care time shown is in addition to time spent performing any reported separately billable procedures and includes the following: [x] Data and vital sign review and interpretation [x ] Patient assessment, examination and intervention [x] Medication orders and management [x] Patient/Family updates as able [x] Care Coordination and Documentation. Diagnoses Encephalopathy G93.40 Renal failure N19 Hypotension I95.9 Acute hyperkalemia E87.5 Uremia N19 High anion gap metabolic acidosis E87.29 Hypertension I10 Type 2 diabetes mellitus E11.9
[2024-11-01 15:59] LABS: Anion Gap 18.7 (5-19); Calcium 7.9 mg/dL (8.5-10.5); Carbon Dioxide 19 mmol/L (22-29); Chloride 104 mmol/L (98-107); Glucose 184 mg/dL (65-115); Osmolality Calculated 320 mOsm/kg (285-295); Potassium 3.7 mmol/L (3.5-5.1); Sodium 138 mmol/L (136-145)
[2024-11-01 16:00] LABS: Glucose Urine UA Negative (Normal); Nitrate Urine Negative (Negative); Specific Gravity, Urine 1.013 (1.005-1.030)
[2024-11-01] MEDS: haloperidol inj 5 mg/mL INJ 1 mL 1 MG IVP ×2 (16:01→23:11)
[2024-11-01 16:05] LABS: Add Urine Microscopic? YES
[2024-11-01 16:18] LABS: Creatinine Clr Calc Pharmacy 19.8119
[2024-11-01 16:20] LABS: Blood Urea Nitrogen 95 mg/dL (8-23)
[2024-11-01 16:22] LABS: Urine Random Sodium 52 mmol/L
--- NOTE | 2024-11-01 17:04 | PC.NURSE ---
pt remained confused and agitated throughout day had episode of brief hypotension with precedex and haldol on board gave iv fluid bolus and started levophed for short time , weaned off within hour has refused to eat or drink much today with increasing agitation one on one sitter order obtained and sitter placed , daughter here for visit aware of confusion
[2024-11-01] MEDS: haloperidol inj 5 mg/mL INJ 1 mL IVP (17:30)
[2024-11-01] MEDS: dorzolamide/timolol Op Soln 10 mL Btl 1 DROP EYE-RIGHT (17:30)
--- NOTE | 2024-11-01 19:38 | PC.NURSE ---
MAR Upon initial assessment, patient's precedex drip administering at 0.2 mcg/kg/hr while MAR displayed 0.6 mcg/kg/hr. MAR updated to reflect actual administration.
[2024-11-02] VITALS (111 sets, daily range): BP systolic 78–143; BP diastolic 43–96; PULSE 60–104; RESP 7–28; TEMP 36.2–36.8; O2SAT 92–98
--- NOTE | 2024-11-02 00:31 | PC.NURSE ---
Heparin Patient's platelet count noted to be decreased from 167 to 116 on 11/01/24. 5000 units heparin due subq; Dr. Sellers contacted and verification received to administer medication as ordered.
[2024-11-02] MEDS: heparin 5,000 unit/mL INJ 1 mL 5000 UNIT SUBCUT ×2 (00:53→13:46)
[2024-11-02] MEDS: dexmedeTOMIDine 0.9 % NaCL 400 MCG/100 ML PREMIX IV (03:53)
[2024-11-02 04:35] LABS: Hematocrit 32.4 % (37-53); Hemoglobin 11.00 g/dL (11.27-16.99); Mean Corpuscular HGB Conc 34.0 g/dL (30-55); Mean Corpuscular Hemoglobin 30.3 pg (27-33); Mean Corpuscular Volume 89.3 fl (82-101); Nucleated Red Blood Cells % 0 %; Platelet Count 108 10^3/cmm (157-399); Red Blood Count 3.63 10^6/uL (3.85-5.65); White Blood Count 5.75 10^3/uL (3.29-11.43)
--- NOTE | 2024-11-02 04:46 | PC.NURSE ---
Blood Pressure Patient's blood pressure intermittently low while resting, currently 78/[address] Sellers contacted and order received for 500 ml NS bolus IV once.
[2024-11-02 04:57] LABS: Alanine Aminotransferase 9 U/L (0-41); Albumin Level 3.3 g/dL (3.5-5.2); Alkaline Phosphatase 73 U/L (40-130); Anion Gap 17.6 (5-19); Aspartate Amino Transferase 16 U/L (0-40); Blood Urea Nitrogen 75 mg/dL (8-23); Calcium 8.0 mg/dL (8.5-10.5); Carbon Dioxide 26 mmol/L (22-29); Chloride 103 mmol/L (98-107); Creatinine Clr Calc Pharmacy 27.7367; Globulin 2.2 g/dL (1.3-4.6); Glucose 174 mg/dL (65-115); Magnesium 1.5 mg/dL (1.7-2.3); Osmolality Calculated 322 mOsm/kg (285-295); Potassium 3.6 mmol/L (3.5-5.1); Sodium 143 mmol/L (136-145); Total Protein 5.5 g/dL (6.6-8.7)
--- NOTE | 2024-11-02 06:25 | PC.NURSE ---
Stool Sample Multiple liquid, mucoid bowel movements over night. Dr. Sellers notified and order received to collect stool sample for c diff test.
[2024-11-02 07:13] LABS: C.Diff PCR (Lab) NEGATIVE (Negative)
--- NOTE | 2024-11-02 07:41 | PC.NURSE ---
more awake this am aware who president is but continues to think he is in [place] and see a girl in [facility]. will talk with staff and redirect continues to be restless and pull at lines , taking po liquids this am not difficulty , off precedex and levophed only on bicarb gtt at this time
[2024-11-02] MEDS: dorzolamide/timolol Op Soln 10 mL Btl 1 DROP EYE-RIGHT ×2 (08:28→17:32)
[2024-11-02] MEDS: erythromycin Op Oint 1 gm 1 APPLIC EYE-BOTH ×4 (08:29→19:59)
--- NOTE | 2024-11-02 09:24 | P.PN_ITS ---
Subjective 2 Subjective: no new compllaints BP low last night Medications: Reviewed: Yes Vitals/I&O/Wt Last Vital Signs Temp 97.2 F L 11/02/24 06:00 Pulse 96 11/02/24 08:30 Resp 19 H 11/02/24 08:30 BP 109/69 11/02/24 08:30 Pulse Ox 95 11/02/24 08:00 O2 Del Method Room Air 11/02/24 06:00 11/01/24 11/02/24 11/02/24 22:59 06:59 14:59 Intake Total 1236.27 / 4596.72 515.34 / 5112.06 250 / 250 Output Total 1000 / 1000 1525 / 2525 Balance 236.27 / 3596.72 -1009.66 / 2587.06 249 / 249 Weight last 48 hrs Weight 71.078 kg Weight 72 kg Weight 72.575 kg Physical Exam 2 Narrative: Awake , confused PEERLA S1S2 RRR per report Lungs clear per reprot Abd - oft , non tender per report Ext - no edema Urinary Catheter Management: Perdomo: Cath Placed During This Visit: yes Reason for Continuing Indwelling Catheter: Accurate Measurement of Urinary Output in Critically Ill Patients Urinary Catheter Date of Insertion: 11/01/24 Urinary Catheter Time of Insertion: 00:01 Data 11/02/24 04:13 11/02/24 04:13 Micro: Microbiology 10/31/24 18:14 Blood Culture - Preliminary Blood NEGATIVE TO DATE 10/31/24 18:11 Blood Culture - Preliminary Blood NEGATIVE TO DATE A&P Assessment and plan 1. GUS (acute kidney injury): 1. Acute kidney injury: Associated with severe hyperkalemia and metabolic acidosis, likely prerenal etiology -CT abd , no hydronephrosis , UA with trace protein , + blood , Urine electrolytes pending , added serologies -Baseline labs not available, renal fxn improving with IVFs 2. History of hypertension holding lisinopril 3. History of diabetes hold, holding metformin 4. Anion gap metabolic acidosis: In the setting of poor p.o. intake, 5. Severe hyperkalemia: Medical management, low K diet Patient evaluated using audiovisual cart. Time spent 40 minutes PDMP PDMP Reviewed: Not Reviewed Attestations 2 Medical Necessity Statement*: per callie Coding Level of Care Code Acute Code for [facility] Diagnoses GUS (acute kidney injury) N17.9
--- NOTE | 2024-11-02 09:39 | PC.NURSE ---
up in chair at this time tolerating very well more cooperative today
--- NOTE | 2024-11-02 13:33 | P.PN_ITS ---
Subjective 2 Subjective: Overnight patient did require Levophed for 3 to 4 hours. Currently mean artery pressure maintained over 65. Precedex have been weaned off. Patient sitting up in recliner. Awake, alert to self, being in the hospital, year of 2024, states date of is 06/30/1930, thinks he is in [place], thinks he is in the hospital because of back pain Medications: Reviewed: Yes Vitals/I&O/Wt Last Vital Signs Temp 98 F 11/02/24 12:00 Pulse 89 11/02/24 12:00 Resp 20 H 11/02/24 12:00 BP 124/69 11/02/24 12:00 Pulse Ox 95 11/02/24 08:00 O2 Del Method Room Air 11/02/24 06:00 11/01/24 11/02/24 11/02/24 22:59 06:59 14:59 Intake Total 1236.27 / 4596.72 515.34 / 5112.06 1400 / 1400 Output Total 1000 / 1000 1525 / 2525 Balance 236.27 / 3596.72 -1009.66 / 2587.06 1399 / 1399 Weight last 48 hrs Weight 71.078 kg Weight 72 kg Weight 72.575 kg Physical Exam 2 Narrative: General: No acute distress, confused, AO x 1 to 2, alert to self, being in the hospital, year of 2024, states date of is 06/30/1930, thinks he is in [place], thinks he is in the hospital because of back pain, sunken eyes, bitemporal wasting, dehydrated, chronically sick appearing HEENT: PERRLA, pupils bilaterally equal and reactive Chest: Normal vesicular breath sounds, no added sounds, equal good air entry bilaterally CVS: S1-S2 regular, no murmurs, no tachycardia, no gallops, no rubs Abdomen: Soft, nontender, no organomegaly, bowel sounds present Neuro: No focal deficits, no facial deformity, AO x3, power 3/5 in all limbs Urinary Catheter Management: Perdomo: Cath Placed During This Visit: yes Reason for Continuing Indwelling Catheter: Accurate Measurement of Urinary Output in Critically Ill Patients Urinary Catheter Date of Insertion: 11/01/24 Urinary Catheter Time of Insertion: 00:01 Data 11/02/24 04:13 11/02/24 04:13 Micro: Microbiology 10/31/24 19:05 Urine Culture - Final Urine,Clean Catch 11/01/24 10:30 Urine Culture - Preliminary Urine,Clean Catch 10/31/24 18:14 Blood Culture - Preliminary Blood NEGATIVE TO DATE 10/31/24 18:11 Blood Culture - Preliminary Blood NEGATIVE TO DATE A&P Assessment and plan 1. Encephalopathy: Most likely in setting of uremia. Infectious cause less likely. Stroke less likely. Will check CT head if does not improve in next 24 hours. LFTs within normal limits. Frequent reorientation. Sitter if needed. Mentation slightly improving today. Cannot rule out underlying dementia. For now start patient on donepezil 10 mg at bedtime, Seroquel 25 mg nightly. 2. Renal failure: Appreciate medical reconciliation. Most likely a combination of lisinopril, metformin. Medical reconciliation done for nephrotoxic drugs. Patient does not remember being told of kidney problems in the past. 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 Improving. Metabolic acidosis improving. Uremia trending down. Hold off on bicarb drip. Switch to NS at 100 cc/h. If oral intake improves can discontinue fluids. Appreciate nephrology recommendations. Perdomo catheterization. Strict input output charting, daily weights. Appreciate urine lites, urine creatinine, urine eosinophil, urinalysis. CT on pelvis negative for obstructive nephropathy. 3. Hypotension: Maintain mean over 65. Hypotensive earlier in the day. Most likely in setting of dehydration. If not able to maintain can plan of Levophed depending on the goals of blood pressure. Continue to monitor blood pressures. 4. Acute hyperkalemia: Monitor every 12 hourly. Treatment according to goal of potassium around 4. 5. Uremia: Improving. 6. High anion gap metabolic acidosis: Resolved. 7. Hypertension: Goal blood pressure less than 140/90 mmHg. 8. Type 2 diabetes mellitus: Appreciate A1c. Will hold off on sliding scale. Hypoglycemia protocol. Plan: CODE STATUS: Discussed in detail with the patient. Daughter and son-in-law will be the DPOA. Patient is agreeable to be full code for now. He would like to think further before making any decision for now. In case if needed he is also agreeable for dialysis. Famotidine for PUD prophylaxis Renal nondialysis diet. Heparin 5000 every 12 hourly for DVT prophylaxis PDMP PDMP Reviewed: Last Reviewed 11/02/24 10:03 by Cuauhtemoc Espana MD Attestations 2 Medical Necessity Statement*: Requires further hospitalization for management of encephalopathy, uremia in setting of acute kidney injury, dehydration Diagnoses Encephalopathy G93.40 Renal failure N19 Hypotension I95.9 Acute hyperkalemia E87.5 Uremia N19 High anion gap metabolic acidosis E87.29 Hypertension I10 Type 2 diabetes mellitus E11.9
[2024-11-02] MEDS: magnesium sulfate premix 1 GM/100 ML PIGGYBACK IV ×2 (13:47→14:06)
[2024-11-02 16:35] LABS: Anion Gap 18.2 (5-19); Blood Urea Nitrogen 54 mg/dL (8-23); Calcium 8.1 mg/dL (8.5-10.5); Carbon Dioxide 24 mmol/L (22-29); Chloride 102 mmol/L (98-107); Creatinine Clr Calc Pharmacy 36.8012; Glucose 134 mg/dL (65-115); Osmolality Calculated 309 mOsm/kg (285-295); Potassium 3.2 mmol/L (3.5-5.1); Sodium 141 mmol/L (136-145)
[2024-11-02] MEDS: fixodent 39 gm Tube 1 APPLIC DENTAL (17:37)
--- NOTE | 2024-11-02 19:27 | PC.NURSE ---
Upon assuming care of patient he is alert to self only. Currently sitting in recliner, attempting to get up, and having visual hallucinations. He had an episode of emesis right before shift change, so currently holding potassium until patient shows signs he is not still nauseous, as he is unable to answer when asked.
[2024-11-02] MEDS: potassium chloride oral liq 20 mEq/15 mL UDC 40 MEQ PO (19:54)
--- NOTE | 2024-11-02 20:01 | PC.NURSE ---
Addendum entered by YUNIEL Mahoney 11/02/24 23:32: Patient repeatedly attempting to get out of bed, pull catheter out, having visual hallucinations about people being in his room, believed a dog was biting him, and wanting to leave before the drop hammer mechanic get him. He remains extremely agitated. Titrated precedex Addendum entered by YUNIEL Mahoney 11/02/24 22:27: Titrated precedex as patient still very agitated and attempting to pull out lines and hit staff. He continues to have visual hallucinations and talk incoherently about objects and people who are not in his room. Addendum entered by YUNIEL Mahoney 11/02/24 21:31: Resumed precedex. Patient hitting bed rails, staff, kicking, attempting to reach the wall behind his bed and pull cords from wall. Blood pressure currently 129/81, HR-95, O2-95%, R-17. Addendum entered by YUNIEL Mahoney 11/02/24 21:22: Patient awake and attempting to hit staff and pull himself out of bed. Visual hallucinations continue. Patient pulling at IV lines. Very agitated and restless. Addendum entered by YUNIEL Mahoney 11/02/24 20:57: Paused precedex due to a drop in patients blood pressure. Addendum entered by YUNIEL Mahoney 11/02/24 20:31: Patient continuing to pull at lines and having visual hallucinations. He keeps repeating sir are you alright, sir? to what he believes is a man standing in his room while he makes repeated attempts to pull himself out of bed, pull at his catheter, cardiac leads. Beginning precedex. Addendum entered by UYNIEL Mahoney 11/02/24 20:19: Patient becoming very agitated due to his confusion. He was unable to support his weight when put back in bed. Stated he needed to get to the ground floor to poop. He was placed on the bed quinones and explained to patient he can go to the bathroom on it. He became increasingly agitated and attempting to hit and kick staff. He was repeatedly pulling up on the bedrails in attempt to get out of bed and get to the ground floor. Attempts at redirection and distraction unsuccessful. Original Note: Patient hallucinating and stating he sees layers of people and my son Kunal is on top as he stares into the corner of his room.
[2024-11-03] VITALS (140 sets, daily range): BP systolic 75–148; BP diastolic 45–126; PULSE 58–101; RESP 3–27; TEMP 36.4–36.8; O2SAT 87–100
[2024-11-03 05:12] LABS: Hematocrit 34.9 % (37-53); Hemoglobin 11.90 g/dL (11.27-16.99); Mean Corpuscular HGB Conc 34.1 g/dL (30-55); Mean Corpuscular Hemoglobin 30.4 pg (27-33); Mean Corpuscular Volume 89.3 fl (82-101); Nucleated Red Blood Cells % 0 %; Platelet Count 134 10^3/cmm (157-399); Red Blood Count 3.91 10^6/uL (3.85-5.65); White Blood Count 8.50 10^3/uL (3.29-11.43)
[2024-11-03 05:27] LABS: Alanine Aminotransferase 9 U/L (0-41); Albumin Level 3.2 g/dL (3.5-5.2); Alkaline Phosphatase 70 U/L (40-130); Anion Gap 18.4 (5-19); Aspartate Amino Transferase 21 U/L (0-40); Blood Urea Nitrogen 40 mg/dL (8-23); Calcium 8.2 mg/dL (8.5-10.5); Carbon Dioxide 25 mmol/L (22-29); Chloride 105 mmol/L (98-107); Creatinine Clr Calc Pharmacy 42.4630; Globulin 2.2 g/dL (1.3-4.6); Glucose 123 mg/dL (65-115); Magnesium 1.5 mg/dL (1.7-2.3); Osmolality Calculated 311 mOsm/kg (285-295); Potassium 3.4 mmol/L (3.5-5.1); Sodium 145 mmol/L (136-145); Total Protein 5.4 g/dL (6.6-8.7)
--- NOTE | 2024-11-03 05:31 | PC.NURSE ---
Patient cooperative with lab draw and bath this morning. Precedex gradually weaned down, but still requiring levophed titrations per protocol. Patient had 1 bowel movement. Patient is becoming increasingly agitated again at this time though and pulling on IVs and lines.
--- NOTE | 2024-11-03 07:01 | PM.PN ---
Subjective Subjective: seen and examined. confused. still on levo @ 2, on precedex and haldol. also on ns ivf pt has a velasco and is urinating Medications: Reviewed: Yes Medication Review Details: Current Medications Acetaminophen (Acetaminophen 325 Mg Tablet) 650 mg PO Q6H PRN PRN Reason: Mild/Mod Pain Or Temp >/= 101 Denture Adhesive (Fixodent 39 Gm Tube) 1 applic DENTAL PRN PRN PRN Reason: denture adhesive Last Admin: 11/02/24 17:37 Dose: 1 applic Docusate Sodium (Docusate Sodium 100 Mg Capsule) 100 mg PO BID PENDING SALE TO [facility] Last Admin: 11/02/24 17:24 Dose: Not Given Donepezil HCl (Donepezil 5 Mg Tablet) 10 mg PO BEDTIME PENDING SALE TO [facility] Last Admin: 11/02/24 19:53 Dose: 10 mg Dorzolamide/Timolol (Dorzolamide/Timolol Op Soln 10 Ml Btl) 1 drop EYE-RIGHT BID PENDING SALE TO [facility] Last Admin: 11/02/24 17:32 Dose: 1 drop Erythromycin (Erythromycin Op Oint 1 Gm) 1 applic EYE-BOTH QID PENDING SALE TO [facility]; Protocol Last Admin: 11/02/24 19:59 Dose: 1 applic Famotidine (Famotidine 20 Mg/2 Ml Inj) 20 mg IVP Q12H KALYANI Last Admin: 11/02/24 23:56 Dose: 20 mg Haloperidol Lactate (Haloperidol Inj 5 Mg/Ml Inj 1 Ml) 1 mg IVP Q4H PRN PRN Reason: AGITATION Last Admin: 11/01/24 23:11 Dose: 1 mg Heparin Sodium (Porcine) (Heparin 5,000 Unit/Ml Inj 1 Ml) 5,000 unit SUBCUT Q12H PENDING SALE TO [facility] Last Admin: 11/03/24 03:19 Dose: Not Given Dextrose (D10w) 250 mls @ 1,000 mls/hr IV PRN PRN PRN Reason: HYPOGLYCEMIA Last Infusion: 10/31/24 22:20 Dose: Infused Norepinephrine Bitartrate (Levophed) 4 mg in 250 mls @ 0 mls/hr IV .Q0M KALYANI; Protocol Last Titration: 11/03/24 06:15 Dose: 0 mcg/min, 0 mls/hr Dexmedetomidine/Sodium Chloride (Precedex) 400 mcg in 100 mls @ 0 mls/hr IV .Q0M KALYANI; Protocol Last Titration: 11/03/24 05:23 Dose: 0 mcg/kg/hr, 0 mls/hr Sodium Chloride (Sodium Chloride 0.9%) 1,000 mls @ 100 mls/hr IV .Q10H PENDING SALE TO [facility] Last Admin: 11/03/24 05:22 Dose: 100 mls/hr Lactulose (Lactulose Oral Liq 20 Gm/30 Ml Udc) 10 gm PO DAILY PRN; Protocol PRN Reason: Constipation (see protocol) Magnesium Hydroxide (Magnesium Hydroxide 30 Ml Udc) 30 ml PO DAILY PRN; Protocol PRN Reason: Constipation (see protocol) Morphine Sulfate (Morphine 4 Mg/Ml Sdv 1 Ml) 2 mg IVP Q4H PRN PRN Reason: SEVERE PAIN Ondansetron HCl (Ondansetron 2 Mg/Ml Sdv 2 Ml) 4 mg IVP Q6H PRN PRN Reason: vomiting, or N/V if npo Quetiapine Fumarate (Quetiapine 25 Mg Tablet) 25 mg PO BEDTIME PENDING SALE TO [facility] Last Admin: 11/02/24 19:53 Dose: 25 mg Vitals/I&O/Wt Last Vital Signs Temp 97.6 F 11/03/24 05:49 Pulse 88 11/03/24 06:10 Resp 19 H 11/03/24 06:10 BP 95/57 11/03/24 06:10 Pulse Ox 97 11/03/24 06:10 O2 Del Method Room Air 11/03/24 02:00 11/02/24 11/03/24 11/03/24 22:59 06:59 14:59 Intake Total 1403.42 / 3103.42 1027.753 / 4131.173 Output Total 800 / 801 500 / 1301 Balance 603.42 / 2302.42 527.753 / 2830.173 Weight last 48 hrs Weight 69.537 kg Weight 71.078 kg Physical Exam Narrative: seen and examined NARD, confused on levo in bed vs noted heent- nc/at eomi neck supple lungs clear heart regular abd soft + bs ext no edema Urinary Catheter Management: Velasco: Cath Placed During This Visit: yes Reason for Continuing Indwelling Catheter: Accurate Measurement of Urinary Output in Critically Ill Patients Urinary Catheter Date of Insertion: 11/01/24 Urinary Catheter Time of Insertion: 00:01 Data 11/03/24 04:57 11/03/24 04:57 Micro: Microbiology 10/31/24 19:05 Urine Culture - Final Urine,Clean Catch 11/01/24 10:30 Urine Culture - Preliminary Urine,Clean Catch A&P Assessment and plan 1. GUS (acute kidney injury): 1. Acute kidney injury: Associated with severe hyperkalemia and metabolic acidosis, likely prerenal etiology -CT abd , no hydronephrosis , UA with trace protein , + blood , Urine electrolytes pending , added serologies -Baseline labs not available, renal fxn improving with IVFs change ivf to 1/2 ns + kcl and magnesium 2. History of hypertension holding lisinopril 3. History of diabetes hold, holding metformin 4. Anion gap metabolic acidosis: In the setting of poor p.o. intake, - now normal bicarbonate 5. pressors- stable Patient evaluated using audiovisual cart. Time spent 30 minutes Plan: see above PDMP PDMP Reviewed: Not Reviewed Attestations Medical Necessity Statement*: on pressors Time Spent in Patient Care: 16 - 35 minutes (>than 50% of time spent in counselling and/or direct pt care on unit). Coding Level of Care Code Acute Code for [facility] Fwd Diagnoses GUS (acute kidney injury) N17.9
[2024-11-03] MEDS: sodium chlor 0.45% +KCl 20 mEq 20 MEQ/1,000 ML BAG 75 MEQ IV ×2 (07:35→19:46)
--- NOTE | 2024-11-03 07:58 | PC.NURSE ---
Pt resting in bed this am. He is alert to name only. He stated 19, when asked about year. Unable to state he is in hospital. He is cooperative at this time. Eating small amounts of his breakfast. He was able to swallow potassium tablets after breaking them in half.
[2024-11-03] MEDS: dorzolamide/timolol Op Soln 10 mL Btl 1 DROP EYE-RIGHT ×3 (08:07→19:58)
[2024-11-03] MEDS: magnesium sulfate premix 1 GM/100 ML PIGGYBACK IV ×2 (08:10→17:33)
[2024-11-03] MEDS: erythromycin Op Oint 1 gm 1 APPLIC EYE-BOTH ×4 (08:10→19:58)
[2024-11-03] MEDS: heparin 5,000 unit/mL INJ 1 mL 5000 UNIT SUBCUT (12:45)
--- NOTE | 2024-11-03 13:27 | PC.NURSE ---
Bed alarm on now. Curtains pulled back for easier monitoring of pt. Pt at this time resting with eye closed.
--- NOTE | 2024-11-03 13:39 | P.PN_ITS ---
Subjective 2 Subjective: seen this am patient confused says he is not hurting sitter at bedside Vitals/I&O/Wt Last Vital Signs Temp 97.6 F 11/03/24 07:23 Pulse 95 11/03/24 13:30 Resp 13 11/03/24 13:30 BP 106/49 11/03/24 13:30 Pulse Ox 97 11/03/24 13:30 O2 Del Method Room Air 11/03/24 13:30 11/02/24 11/03/24 11/03/24 22:59 06:59 14:59 Intake Total 1403.42 / 3103.42 1027.753 / 4131.173 1206.667 / 1206.667 Output Total 800 / 801 500 / 1301 200 / 200 Balance 603.42 / 2302.42 527.753 / 2830.173 1006.667 / 1006.667 Weight last 48 hrs Weight 69.537 kg Weight 71.078 kg Physical Exam 2 Narrative: General: No acute distress, confused, AO x 1 to 2, alert to self, being in the hospital, year of 1897, HEENT: PERRLA, pupils bilaterally equal and reactive Chest: Normal vesicular breath sounds, no added sounds, equal good air entry bilaterally CVS: S1-S2 regular, Abdomen: Soft, nontender, no organomegaly, bowel sounds present Neuro: No focal deficits, no facial deformity, follows some commands Urinary Catheter Management: Perdomo: Cath Placed During This Visit: yes Reason for Continuing Indwelling Catheter: Accurate Measurement of Urinary Output in Critically Ill Patients Urinary Catheter Date of Insertion: 11/01/24 Urinary Catheter Time of Insertion: 00:01 Data 11/03/24 04:57 11/03/24 04:57 Micro: Microbiology 11/01/24 10:30 Urine Culture - Final Urine,Clean Catch 10/31/24 19:05 Urine Culture - Final Urine,Clean Catch A&P Assessment and plan 1. Encephalopathy: Most likely in setting of uremia. Infectious cause less likely. Stroke less likely. Will check CT head if does not improve in next 24 hours. LFTs within normal limits. Frequent reorientation. Sitter if needed. Mentation slightly improving today. Cannot rule out underlying dementia. For now start patient on donepezil 10 mg at bedtime, Seroquel 25 mg nightly. 2. Renal failure: Appreciate medical reconciliation. Most likely a combination of lisinopril, metformin. Medical reconciliation done for nephrotoxic drugs. Patient does not remember being told of kidney problems in the past. 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 Improving. Metabolic acidosis improving. Uremia trending down. Hold off on bicarb drip. Switch to NS at 100 cc/h. If oral intake improves can discontinue fluids. Appreciate nephrology recommendations. Perdomo catheterization. Strict input output charting, daily weights. Appreciate urine lites, urine creatinine, urine eosinophil, urinalysis. CT on pelvis negative for obstructive nephropathy. 3. Hypotension: Maintain mean over 65. Hypotensive earlier in the day. Most likely in setting of dehydration. If not able to maintain can plan of Levophed depending on the goals of blood pressure. Continue to monitor blood pressures. 4. Acute hyperkalemia: Monitor every 12 hourly. Treatment according to goal of potassium around 4. 5. Uremia: Improving. 6. High anion gap metabolic acidosis: Resolved. 7. Hypertension: Goal blood pressure less than 140/90 mmHg. 8. Type 2 diabetes mellitus: Appreciate A1c. Will hold off on sliding scale. Hypoglycemia protocol. Plan: CODE STATUS: Discussed in detail with the patient. Daughter and son-in-law will be the DPOA. Patient is agreeable to be full code for now. He would like to think further before making any decision for now. In case if needed he is also agreeable for dialysis. Famotidine for PUD prophylaxis Renal nondialysis diet. Heparin 5000 every 12 hourly for DVT prophylaxis 11/03/2024 Creatinine 1.3, potassium 3.4, lithium 1.5, phosphorus 3.1. WBC normal, hemoglobin 11.9, platelets 134. Reviewed CT abdomen/pelvis from admission no acute concerning abnormalities head CT negative for acute pathology chest x-ray shows no acute findings. Urine culture shows no growth. Blood cultures negative to date. Patient's mental status seems to be possibly at baseline with progression of dementia. Unsure of patient's baseline at home. Will call family. He is able to tell us that he has 3 kids. Currently has a sitter in place. Was started on Seroquel by admitting physician. Continue to monitor at this time. Check PT OT. PDMP PDMP Reviewed: Not Reviewed Attestations 2 Medical Necessity Statement*: Requires further hospitalization for management of encephalopathy, uremia in setting of acute kidney injury, dehydration Diagnoses Encephalopathy G93.40 Renal failure N19 Hypotension I95.9 Acute hyperkalemia E87.5 Uremia N19 High anion gap metabolic acidosis E87.29 Hypertension I10 Type 2 diabetes mellitus E11.9
[2024-11-03 13:44] LABS: COMPLEMENT COMPONENT C3C 82 mg/dL; COMPLEMENT COMPONENT C4C 23 mg/dL
[2024-11-03 14:37] LABS: COMPLEMENT, TOTAL (CH50) 42 U/mL (31-60)
--- NOTE | 2024-11-03 15:41 | PC.OT ---
OT eval attempted x2; patient asleep
[2024-11-03 16:04] LABS: CENTROMERE B ANTIBODY <1.0 NEG AI (<1.0 NEG); JO-1 ANTIBODY <1.0 NEG AI (<1.0 NEG); RNP ANTIBODY <1.0 NEG AI (<1.0 NEG); SCL-70 ANTIBODY <1.0 NEG AI (<1.0 NEG); SS-B <1.0 NEG AI (<1.0 NEG)
--- NOTE | 2024-11-03 16:06 | PC.SOCIAL ---
IMM updated IMM dated and initialed, Copy placed in chart and copy given to patient
--- NOTE | 2024-11-03 17:45 | PC.NURSE ---
Dr Bell notified Colkenisha held due to diarrhea, She okay'd. She was also notified that pt's behavior was much improved, so 1:1 sitter discontinuation requested. Sitter 1:1 discontinued as ordered.
--- NOTE | 2024-11-03 18:37 | PC.NURSE ---
Shift summary: Pt remains confused. He is alert to self. He still thinks he is in the 1900's and in a health shop. This morning he told me his sone was 17 and his two daughters were 15 and 16 yo. He has been very cooperative today. He has not pulled on his IV nor his velasco cath this shift. Decision to discontinue 1:1 sitter made today. He has received potassium replacement PO and 2 magnesium IV replacements today. Colace held this evening . Pt was incontinence of a large amount of loose stools today. His urine output is poor, 350ml this shift. He has denied pain. He has a stage II ulcer on his left bottom. He has picked , eating 25% or less of every meal. He has sat up in chair today and tolerated well.
--- NOTE | 2024-11-03 20:16 | PC.NURSE ---
Addendum entered by YUNIEL Mahoney 11/04/24 05:43: Patient had 200 output this shift. He was cooperative for lab draw and bath this morning. Able to wean down precedex and verbal attempts to orient patient were successful. Addendum entered by YUNIEL Mahoney 11/04/24 02:40: Precedex had to be increased due to worsening agitation with attempts at pulling catheter, distress from visual hallucinations. Verbal deescalation, redirection, and distraction attempts unsuccessful prior to titration. He had fluctuating periods of clarity and told staff this happens at night a lot. Addendum entered by YUNIEL Mahoney 11/04/24 00:07: Patient still very confused and pulling at catheter, cardiac leads, as well as IV line. He is alert, very cooperative, and pleasant until night time. He then begins to exhibit sundowning like symptoms such as not being alert to even self at times, and having severe visual hallucinations. He is only requiring sedation due to the setting and in order to not be a harm to himself. He is very pleasant and cooperative until night time. Addendum entered by YUNIEL Mahnoey 11/03/24 21:10: Haldol ineffective. Beginning precedex as patient is attempting to take everything off of himself and bed. Addendum entered by YUNIEL Mahoney 11/03/24 20:54: Patient having severe visual hallucinations at this time. He is staring into the corner of his room while saying why dont you let all those little children in? Are you going to just let them stand there? Also asking if he can go through the door? but he is looking up to his ceiling while saying this. Original Note: Patient had been alert and oriented at shift change and during medication administration, then just as the previous two nights he began pulling his monitoring off, being resistant to cares and combative. Administering haldol
[2024-11-03] MEDS: haloperidol inj 5 mg/mL INJ 1 mL 1 MG IVP (20:19)
[2024-11-04] VITALS (89 sets, daily range): BP systolic 75–150; BP diastolic 48–107; PULSE 54–108; RESP 13–32; TEMP 36.4–37.1; O2SAT 88–100
[2024-11-04] MEDS: heparin 5,000 unit/mL INJ 1 mL 5000 UNIT SUBCUT ×2 (02:45→12:46)
[2024-11-04 05:25] LABS: Alanine Aminotransferase 9 U/L (0-41); Albumin Level 3.0 g/dL (3.5-5.2); Alkaline Phosphatase 62 U/L (40-130); Anion Gap 14.5 (5-19); Aspartate Amino Transferase 18 U/L (0-40); Blood Urea Nitrogen 29 mg/dL (8-23); Calcium 8.2 mg/dL (8.5-10.5); Carbon Dioxide 26 mmol/L (22-29); Chloride 104 mmol/L (98-107); Creatinine Clr Calc Pharmacy 45.6234; Globulin 2.2 g/dL (1.3-4.6); Glucose 149 mg/dL (65-115); Magnesium 2.0 mg/dL (1.7-2.3); Osmolality Calculated 301 mOsm/kg (285-295); Potassium 3.5 mmol/L (3.5-5.1); Sodium 141 mmol/L (136-145); Total Protein 5.2 g/dL (6.6-8.7)
--- NOTE | 2024-11-04 06:50 | PC.NURSE ---
Patient complaining of pain at IV site and pulled it out. Fluids paused until IV can be replaced.
--- NOTE | 2024-11-04 08:01 | PC.NURSE ---
IV magnesium held. Dr Bell notified.
[2024-11-04] MEDS: erythromycin Op Oint 1 gm 1 APPLIC EYE-BOTH ×3 (08:31→21:36)
--- NOTE | 2024-11-04 09:41 | P.PN_ITS ---
Subjective 2 Subjective: The patient was seen and examined this morning. Patient is more awake however confused. He states he is eating and denies complaints. Medications: Reviewed: Yes Medication Review Details: Current Medications Acetaminophen (Acetaminophen 325 Mg Tablet) 650 mg PO Q6H PRN PRN Reason: Mild/Mod Pain Or Temp >/= 101 Denture Adhesive (Fixodent 39 Gm Tube) 1 applic DENTAL PRN PRN PRN Reason: denture adhesive Last Admin: 11/02/24 17:37 Dose: 1 applic Docusate Sodium (Docusate Sodium 100 Mg Capsule) 100 mg PO BID KALYANI Last Admin: 11/04/24 08:30 Dose: 100 mg Donepezil HCl (Donepezil 5 Mg Tablet) 10 mg PO BEDTIME KALYANI Last Admin: 11/03/24 19:57 Dose: 10 mg Dorzolamide/Timolol (Dorzolamide/Timolol Op Soln 10 Ml Btl) 1 drop EYE-RIGHT BID KALYANI Last Admin: 11/03/24 19:58 Dose: 1 drop Erythromycin (Erythromycin Op Oint 1 Gm) 1 applic EYE-BOTH QID KALYANI; Protocol Last Admin: 11/04/24 08:31 Dose: 1 applic Famotidine (Famotidine 20 Mg/2 Ml Inj) 20 mg IVP Q12H KALYANI Last Admin: 11/04/24 02:44 Dose: 20 mg Haloperidol Lactate (Haloperidol Inj 5 Mg/Ml Inj 1 Ml) 1 mg IVP Q4H PRN PRN Reason: AGITATION Last Admin: 11/03/24 20:19 Dose: 1 mg Heparin Sodium (Porcine) (Heparin 5,000 Unit/Ml Inj 1 Ml) 5,000 unit SUBCUT Q12H KALYANI Last Admin: 11/04/24 02:45 Dose: 5,000 unit Dextrose (D10w) 250 mls @ 1,000 mls/hr IV PRN PRN PRN Reason: HYPOGLYCEMIA Last Infusion: 10/31/24 22:20 Dose: Infused Norepinephrine Bitartrate (Levophed) 4 mg in 250 mls @ 0 mls/hr IV .Q0M KALYANI; Protocol Last Titration: 11/04/24 05:00 Dose: 0 mcg/min, 0 mls/hr Dexmedetomidine/Sodium Chloride (Precedex) 400 mcg in 100 mls @ 0 mls/hr IV .Q0M KALYANI; Protocol Last Titration: 11/04/24 05:00 Dose: 0 mcg/kg/hr, 0 mls/hr Potassium Chloride/Sodium Chloride (Sodium Chlor 0.45% +Kcl 20 Meq) 20 meq in 1,000 mls @ 75 mls/hr IV .[id number] [facility] Last Admin: 11/04/24 09:30 Dose: Not Given Lactulose (Lactulose Oral Liq 20 Gm/30 Ml Udc) 10 gm PO DAILY PRN; Protocol PRN Reason: Constipation (see protocol) Magnesium Hydroxide (Magnesium Hydroxide 30 Ml Udc) 30 ml PO DAILY PRN; Protocol PRN Reason: Constipation (see protocol) Morphine Sulfate (Morphine 4 Mg/Ml Sdv 1 Ml) 2 mg IVP Q4H PRN PRN Reason: SEVERE PAIN Ondansetron HCl (Ondansetron 2 Mg/Ml Sdv 2 Ml) 4 mg IVP Q6H PRN PRN Reason: vomiting, or N/V if npo Quetiapine Fumarate (Quetiapine 25 Mg Tablet) 25 mg PO BEDTIME [facility] Last Admin: 11/03/24 19:57 Dose: 25 mg Vitals/I&O/Wt Last Vital Signs Temp 98.5 F 11/04/24 07:56 Pulse 73 11/04/24 08:00 Resp 16 11/04/24 08:00 BP 120/57 11/04/24 08:00 Pulse Ox 96 11/04/24 08:00 O2 Del Method Room Air 11/03/24 20:40 11/03/24 11/04/24 11/04/24 22:59 06:59 14:59 Intake Total 1351.08 / 2557.747 988.19 / 3545.937 120 / 120 Output Total 150 / 350 200 / 550 Balance 1201.08 / 2207.747 788.19 / 2995.937 120 / 120 Weight last 48 hrs Weight 70.23 kg Weight 69.537 kg Physical Exam 2 Narrative: Elderly man, faint in bed no apparent distress. vs noted heent- nc/at eomi neck supple lungs clear heart regular abd soft + bs ext no edema Neuro awake alert oriented to hospital however confused to date. Urinary Catheter Management: Perdomo: Cath Placed During This Visit: yes Reason for Continuing Indwelling Catheter: Accurate Measurement of Urinary Output in Critically Ill Patients Urinary Catheter Date of Insertion: 11/01/24 Urinary Catheter Time of Insertion: 00:01 Data 11/03/24 04:57 11/04/24 04:47 Micro: Microbiology 11/01/24 10:30 Urine Culture - Final Urine,Clean Catch A&P Assessment and plan 1. GUS (acute kidney injury): 1. Acute kidney injury: Associated with severe hyperkalemia and metabolic acidosis, likely prerenal etiology. Please also note patient has history of a partial nephrectomy. Continue to hold off on nephrotoxic medications. CT scan does not show any obstruction. Please follow-up serologies. So far negative. -Sodium improved. Potassium improving. Phosphorus remains low. Will stop IV fluids. Will give him Neutra-Phos. Monitor chemistries. Renal will see as needed. 2. History of hypertension holding lisinopril 3. History of diabetes hold, holding metformin 4. Anion gap metabolic acidosis: In the setting of poor p.o. intake, - now normal bicarbonate 5. The patient is off of pressors. Patient evaluated using audiovisual cart. Time spent 30 minutes Plan: see above PDMP PDMP Reviewed: Not Reviewed Attestations 2 Medical Necessity Statement*: As per hospitalist. Time Spent in Patient Care: 16 - 35 minutes (>than 50% of time sp ent in counselling and/or direct pt care on unit) . Coding Level of Care Code Acute Code for [facility] Diagnoses GUS (acute kidney injury) N17.9
[2024-11-04 12:19] LABS: ANCA Screen NEGATIVE (NEGATIVE)
--- NOTE | 2024-11-04 16:10 | PC.NURSE ---
This nurse took report from AN Martinez in ICU at 1610.
--- NOTE | 2024-11-04 16:35 | PC.NURSE ---
Called Daughter Marlin to update on moving patient to [place]
--- NOTE | 2024-11-04 17:15 | PM.CONSULT ---
Providers/Reason For Consult Consulting Physician/Specialty*: Mike Hart MD neurology and epilepsy Reason for Consult*: Assessed for dementia Attending Physician: Megan Bell MD History of Present Illness History of Present Illness Vladimir Salgado is a 89 year old male with a history of hypertension, type 2 diabetes mellitus, acute renal injury, and renal failure. The patient was admitted to the intensive care unit. Patient was observed to have findings suggestive of encephalopathy. After improvement of the patient's metabolic condition, he continued to display signs of memory loss and dementia and therefore neurology consult was obtained. The patient is now on made search floor room 252 bed #2. Patient is lying in bed in no acute distress. He was cooperative. Patient follows commands but thought it was 1949. He was able to tell me his full name and date of . Patient knew he was in a hospital but did not know the name of the hospital. The patient did know the current president was Layo Howard. The patient was started on Aricept during his hospitalization. Drug allergies: None Current medications: Aricept 10 mg p.o. nightly Seroquel 25 mg p.o. nightly Allopurinol 300 mg p.o. daily Norvasc 5 mg p.o. daily Timolol eyedrops 1 drop twice daily Lisinopril 40 mg p.o. daily Metformin 500 mg p.o. twice daily Past medical history: Type 2 diabetes mellitus Acute renal failure Encephalopathy Memory loss Uremia Urinary tract infection Acute hyperkalemia Habits: None Social history: The patient lives with his son Review of Systems General: Reports: 10 or more systems reviewed and unremarkable except in HPI and below Neuro: Reports: confusion Psych: Reports: memory loss Medications/Allergies Home Medications ?Medication ?Instructions ?Recorded ?Confirmed ?Last Taken ?Type allopurinol 300 mg tablet 300 mg PO DAILY 11/01/24 11/01/24 10/31/24 History amlodipine 5 mg tablet 5 mg PO DAILY 11/01/24 11/01/24 10/31/24 History dorzolamide 22.3 mg-timolol 6.8 1 drp ophthalmic (eye) BID 11/01/24 11/01/24 10/31/24 History mg/mL eye drops lisinopril 40 mg tablet 40 mg PO DAILY 11/01/24 11/01/24 10/31/24 History metformin 500 mg tablet 500 mg PO BID 11/01/24 11/01/24 10/31/24 History Allergies Allergy/AdvReac Type Severity Reaction Status Date / Time No Known Allergies Allergy Verified 10/31/24 17:58 Current Medications Generic Name Dose Route Start Last Admin Trade Name Freq PRN Reason Stop Dose Admin Denture Adhesive 1 applic 11/02/24 17:21 11/02/24 17:37 Fixodent 39 Gm Tube DENTAL 1 applic PRN PRN Administration denture adhesive Docusate Sodium 100 mg 11/01/24 09:00 11/04/24 17:08 Docusate Sodium 100 Mg Capsule PO 100 mg BID KALYANI Administration Donepezil HCl 10 mg 11/02/24 21:00 11/03/24 19:57 Donepezil 5 Mg Tablet PO 10 mg BEDTIME KALYANI Administration Dorzolamide/Timolol 1 drop 11/01/24 18:00 11/03/24 19:58 Dorzolamide/Timolol Op Soln 10 Ml Btl EYE-RIGHT 1 drop BID KALYANI Administration Erythromycin 1 applic 11/01/24 12:00 11/04/24 17:08 Erythromycin Op Oint 1 Gm EYE-BOTH 1 applic QID KALYANI Administration Protocol Famotidine 20 mg 11/01/24 00:19 11/04/24 12:45 Famotidine 20 Mg/2 Ml Inj IVP Not Given Q12H KALYANI Heparin Sodium (Porcine) 5,000 unit 11/01/24 00:19 11/04/24 12:46 Heparin 5,000 Unit/Ml Inj 1 Ml SUBCUT 5,000 unit Q12H KALYANI Administration Dextrose 250 mls @ 1,000 mls/hr 10/31/24 20:26 10/31/24 22:20 D10w IV Infused PRN PRN Infusion HYPOGLYCEMIA Potassium Phosphate 250 mg 11/04/24 09:50 11/04/24 17:08 Phosphorus 250 Mg Tablet PO 11/06/24 21:00 250 mg BID KALYANI Administration Quetiapine Fumarate 25 mg 11/02/24 21:00 11/03/24 19:57 Quetiapine 25 Mg Tablet PO 25 mg BEDTIME KALYANI Administration PFSH Acute PFSH: Medical History (Updated 11/04/24 @ 17:26 by Mike Hart MD) History of colon cancer History of renal cell carcinoma Type 2 diabetes mellitus Hypertension Surgical History (Updated 10/31/24 @ 21:32 by Cuauhtemoc Espana MD) History of resection of liver History of partial colectomy History of partial nephrectomy Vitals/I&O/Wt Last Vital Signs Temp 97.5 F L 11/04/24 16:00 Pulse 99 11/04/24 16:00 Resp 16 11/04/24 16:00 BP 144/81 11/04/24 16:00 Pulse Ox 98 11/04/24 16:00 O2 Del Method Room Air 11/04/24 16:00 11/04/24 11/04/24 11/04/24 06:59 14:59 22:59 Intake Total 988.19 / 3545.937 240 / 240 0 / 240 Output Total 200 / 550 Balance 788.19 / 2995.937 240 / 240 0 / 240 Weight last 48 hrs Weight 154 lb 13.29 oz Weight 153 lb 4.845 oz Physical Exam Narrative: Patient is lying in bed in no acute distress. He was cooperative. Patient follows commands but thought it was 1949. He was able to tell me his full name and date of . Patient knew he was in a hospital but did not know the name of the hospital. The patient did know the current president was Layo Howard. The patient was started on Aricept during his hospitalization. Head atraumatic. Neck supple. Cranial nerves II through XII grossly intact. Pupils 3 mm round reactive light and accommodation. Extraocular movements intact there were no nystagmus. Motor testing grossly nonfocal at 5/5 bilaterally. Deep tendon reflex revealed plantar responses bilaterally. Sensory examination was intact to touch. Throat clear. Lungs clear. Heart regular rhythm and rate. Extremities were negative for cyanosis. Urinary Catheter Management: Perdomo: Cath Placed During This Visit: yes Reason for Continuing Indwelling Catheter: Accurate Measurement of Urinary Output in Critically Ill Patients Urinary Catheter Date of Insertion: 11/01/24 Urinary Catheter Time of Insertion: 00:01 Data 11/03/24 04:57 11/04/24 04:47 A&P Assessment and plan 1. Memory loss: Impression: 1. Memory loss etiology unclear Plan: 1. Agree with starting Aricept for memory loss 2. Please schedule patient for follow-up in the [facility] neurology clinic on discharge 3. Will plan to perform the following on outpatient basis: a)Head MRI with and without contrast b) carotid duplex study to assess for carotid or vertebral artery stenosis c) obtain labs for B12, folate, methylmalonic acid, homocystine, vitamin D, FTA antibody, RPR, thiamine, magnesium, thyroid profile, serum protein electrophoresis, immunofixation and {APOE genotype, phosphorylated tau 217, amyloid beta 42:40 ratio to assess for senile dementia of the Alzheimer's type} d) MoCA (Jesus cognitive assessment) to further assess for senile dementia of the Alzheimer's type e) Will also consider performing amyloid tau brain PET scan if serum phosphorylated tau 217 is abnormal which would suggest senile dementia of Alzheimer's type PDMP PDMP Reviewed: Not Reviewed Consult Attestations Medical Necessity Statement: The patient was evaluated by neurology for memory loss Coding Level of Care Code 29089 Diagnoses Memory loss R41.3
[2024-11-04] MEDS: dorzolamide/timolol Op Soln 10 mL Btl 1 DROP EYE-RIGHT (18:08)
--- NOTE | 2024-11-04 18:11 | P.PN_ITS ---
Subjective 2 Subjective: Seen this morning. Awake alert sitting up in bed. Able to tell me that he is in [place]. Knows his date of and his name. Denies any complaints at this time. No family present at bedside at this time. Vitals/I&O/Wt Last Vital Signs Temp 98.5 F 11/05/24 10:34 Pulse 97 11/05/24 10:34 Resp 17 11/05/24 10:34 BP 113/52 11/05/24 10:34 Pulse Ox 90 11/05/24 10:34 O2 Del Method Room Air 11/05/24 10:34 11/04/24 11/05/24 11/05/24 22:59 06:59 14:59 Intake Total 360 / 600 100 / 100 Output Total 700 / 700 200 / 900 Balance -340 / -100 -200 / -300 100 / 100 Weight last 48 hrs Weight 67.755 kg Weight 70.23 kg Physical Exam 2 Narrative: General: No acute distress, confused, HEENT: PERRLA, pupils bilaterally equal and reactive Chest: Normal vesicular breath sounds, equal good air entry bilaterally CVS: S1-S2 regular, Abdomen: Soft, nontender, bowel sounds present Neuro: No focal deficits, no facial deformity, follows some commands Urinary Catheter Management: Perdomo: Cath Placed During This Visit: yes Reason for Continuing Indwelling Catheter: Other Urinary Catheter Date of Insertion: 11/01/24 Urinary Catheter Time of Insertion: 00:01 Data 11/03/24 04:57 11/05/24 04:49 A&P Assessment and plan 1. Encephalopathy: Most likely in setting of uremia. Infectious cause less likely. Stroke less likely. Will check CT head if does not improve in next 24 hours. LFTs within normal limits. Frequent reorientation. Sitter if needed. Mentation slightly improving today. Cannot rule out underlying dementia. For now start patient on donepezil 10 mg at bedtime, Seroquel 25 mg nightly. 2. Renal failure: Appreciate medical reconciliation. Most likely a combination of lisinopril, metformin. Medical reconciliation done for nephrotoxic drugs. Patient does not remember being told of kidney problems in the past. 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 Improving. Metabolic acidosis improving. Uremia trending down. Hold off on bicarb drip. Switch to NS at 100 cc/h. If oral intake improves can discontinue fluids. Appreciate nephrology recommendations. Perdomo catheterization. Strict input output charting, daily weights. Appreciate urine lites, urine creatinine, urine eosinophil, urinalysis. CT on pelvis negative for obstructive nephropathy. 3. Hypotension: Maintain mean over 65. Hypotensive earlier in the day. Most likely in setting of dehydration. If not able to maintain can plan of Levophed depending on the goals of blood pressure. Continue to monitor blood pressures. 4. Acute hyperkalemia: Monitor every 12 hourly. Treatment according to goal of potassium around 4. 5. Uremia: Improving. 6. High anion gap metabolic acidosis: Resolved. 7. Hypertension: Goal blood pressure less than 140/90 mmHg. 8. Type 2 diabetes mellitus: Appreciate A1c. Will hold off on sliding scale. Hypoglycemia protocol. Plan: CODE STATUS: Discussed in detail with the patient. Daughter and son-in-law will be the DPOA. Patient is agreeable to be full code for now. He would like to think further before making any decision for now. In case if needed he is also agreeable for dialysis. Famotidine for PUD prophylaxis Renal nondialysis diet. Heparin 5000 every 12 hourly for DVT prophylaxis 11/03/2024 Creatinine 1.3, potassium 3.4, lithium 1.5, phosphorus 3.1. WBC normal, hemoglobin 11.9, platelets 134. Reviewed CT abdomen/pelvis from admission no acute concerning abnormalities head CT negative for acute pathology chest x-ray shows no acute findings. Urine culture shows no growth. Blood cultures negative to date. Patient's mental status seems to be possibly at baseline with progression of dementia. Unsure of patient's baseline at home. Will call family. He is able to tell us that he has 3 kids. Currently has a sitter in place. Was started on Seroquel by admitting physician. Continue to monitor at this time. Check PT OT. 11/03/2024 Patient remains confused. This may be patient's new baseline. He may have delirium on underlying dementia. Possibility of underlying dementia. Consult neurology for input. Will discuss with family when they get here today. Continue Aricept and Seroquel. Blood cultures urine cultures negative to date. Creatinine is normalized at 1.2. Phosphorus 2.0. I will check MRI brain. PDMP PDMP Reviewed: Not Reviewed Attestations 2 Medical Necessity Statement*: Neurology consultation ordered for today. Diagnoses Encephalopathy G93.40 Renal failure N19 Hypotension I95.9 Acute hyperkalemia E87.5 Uremia N19 High anion gap metabolic acidosis E87.29 Hypertension I10 Type 2 diabetes mellitus E11.9
--- NOTE | 2024-11-04 18:23 | USCV_ITS ---
BuddyVladimir florez Age: 89 Gender: M : 1935 Exam Date: 11/04/2024 19:20 Ordering Phys: Megan Bell MD Technologist: JACQUELINE Exam Location: [facility] [place] Indication: AMS, HTN, DM2, renal failure. Risk Factors: unknown Previous Vascular Surgery: unknown Right Brachial BP: 144 / 81 Left Brachial BP: / Right Left Velocity (cm/s) Spectral Plaque Velocity (cm/s) Spectral Plaque Syst/Diast Broadening Syst/Diast Broadening 81.50/ 8.90 Min Hetro Prox CCA 41.00 / 9.60 Min Hetro 60.80/ 7.60 Min Hetro Mid CCA 54.10 / 9.50 Min Hetro 51.30/ 6.30 Mod Daniel Distal CCA 51.70 / 13.10 Mod Daniel 31.90/ 8.40 Mod Daniel Prox ICA 32.80 / 10.20 Mod Daniel 61.10/ 17.00 Mod Hetro Mid ICA 39.70 / 8.50 Mod Hetro 51.30/ 20.70 Mod Hetro Distal ICA 24.00 / 6.50 Mod Hetro 68.00 Mod Daniel ECA 0.00 Daniel 1.20 ICA/CCA 0.80 Antegrade Vertebral Antegrade 44.00/ 6.00 cm/s 31.40/ 8.40 cm/s Tri Subclavian Tri 84.40 94.20 FINDINGS Comparison: none available. Diffuse, mild bilateral scattered calcified plaque and intimal thickening throughout the common carotid arteries and extending through the bifurcation. Left ECA not identified and maybe occluded. CONCLUSIONS Bilateral ICA stenosis less than 50%. Possible left ECA occlusion. Mild diffuse calcified plaque. Dr. Marylou Johnson DO (Electronically Signed) Final Date: 05 November 2024 06:46 S
[2024-11-05] VITALS (7 sets, daily range): BP systolic 110–125; BP diastolic 52–80; PULSE 72–104; RESP 16–17; TEMP 36.6–37.1; O2SAT 90–94
[2024-11-05] MEDS: heparin 5,000 unit/mL INJ 1 mL 5000 UNIT SUBCUT ×2 (01:53→13:37)
[2024-11-05] MEDS: efferdent effervescent 1 EACH DENTAL (03:16)
[2024-11-05 05:22] LABS: Alanine Aminotransferase 11 U/L (0-41); Albumin Level 3.4 g/dL (3.5-5.2); Alkaline Phosphatase 68 U/L (40-130); Anion Gap 18.2 (5-19); Aspartate Amino Transferase 26 U/L (0-40); Blood Urea Nitrogen 24 mg/dL (8-23); Calcium 8.5 mg/dL (8.5-10.5); Carbon Dioxide 25 mmol/L (22-29); Chloride 102 mmol/L (98-107); Creatinine Clr Calc Pharmacy 45.7935; Globulin 2.4 g/dL (1.3-4.6); Glucose 126 mg/dL (65-115); Magnesium 1.6 mg/dL (1.7-2.3); Osmolality Calculated 300 mOsm/kg (285-295); Potassium 3.2 mmol/L (3.5-5.1); Sodium 142 mmol/L (136-145); Total Protein 5.8 g/dL (6.6-8.7)
[2024-11-05 05:45] LABS: Magnesium 1.5 mg/dL (1.7-2.3); Thyroid Stimulating Hormone 4.26 uIU/mL (0.27-4.20); Vitamin B12 318 pg/mL (232-1245)
--- NOTE | 2024-11-05 06:28 | PM.PN ---
Subjective Subjective: Seen and examined. Patient is lethargic. Not answering appropriately. Patient had diarrhea overnight. Medications: Reviewed: Yes Medication Review Details: Current Medications Acetaminophen (Acetaminophen 325 Mg Tablet) 650 mg PO Q6H PRN PRN Reason: Mild/Mod Pain Or Temp >/= 101 Denture Adhesive (Fixodent 39 Gm Tube) 1 applic DENTAL PRN PRN PRN Reason: denture adhesive Last Admin: 11/02/24 17:37 Dose: 1 applic Denture Adhesive (Efferdent Effervescent) 1 each DENTAL PRN PRN PRN Reason: denture cleanse Last Admin: 11/05/24 03:16 Dose: 1 each Docusate Sodium (Docusate Sodium 100 Mg Capsule) 100 mg PO BID [facility] Last Admin: 11/04/24 17:08 Dose: 100 mg Donepezil HCl (Donepezil 5 Mg Tablet) 10 mg PO BEDTIME [facility] Last Admin: 11/04/24 21:35 Dose: 10 mg Dorzolamide/Timolol (Dorzolamide/Timolol Op Soln 10 Ml Btl) 1 drop EYE-RIGHT BID [facility] Last Admin: 11/04/24 18:08 Dose: 1 drop Erythromycin (Erythromycin Op Oint 1 Gm) 1 applic EYE-BOTH QID [facility]; Protocol Last Admin: 11/04/24 21:36 Dose: 1 applic Famotidine (Famotidine 20 Mg/2 Ml Inj) 20 mg IVP Q12H [facility] Last Admin: 11/05/24 01:26 Dose: Not Given Heparin Sodium (Porcine) (Heparin 5,000 Unit/Ml Inj 1 Ml) 5,000 unit SUBCUT Q12H [facility] Last Admin: 11/05/24 01:53 Dose: 5,000 unit Dextrose (D10w) 250 mls @ 1,000 mls/hr IV PRN PRN PRN Reason: HYPOGLYCEMIA Last Infusion: 10/31/24 22:20 Dose: Infused Lactulose (Lactulose Oral Liq 20 Gm/30 Ml Udc) 10 gm PO DAILY PRN; Protocol PRN Reason: Constipation (see protocol) Magnesium Hydroxide (Magnesium Hydroxide 30 Ml Udc) 30 ml PO DAILY PRN; Protocol PRN Reason: Constipation (see protocol) Morphine Sulfate (Morphine 4 Mg/Ml Sdv 1 Ml) 2 mg IVP Q4H PRN PRN Reason: SEVERE PAIN Ondansetron HCl (Ondansetron 2 Mg/Ml Sdv 2 Ml) 4 mg IVP Q6H PRN PRN Reason: vomiting, or N/V if npo Potassium Phosphate (Phosphorus 250 Mg Tablet) 250 mg PO BID [facility] Stop: 11/06/24 21:00 Last Admin: 11/04/24 17:08 Dose: 250 mg Quetiapine Fumarate (Quetiapine 25 Mg Tablet) 25 mg PO BEDTIME [facility] Last Admin: 11/04/24 21:36 Dose: 25 mg Vitals/I&O/Wt Last Vital Signs Temp 98.1 F 11/05/24 05:33 Pulse 102 H 11/05/24 05:33 Resp 17 11/05/24 05:33 BP 110/67 11/05/24 05:33 Pulse Ox 90 11/05/24 05:33 O2 Del Method Room Air 11/05/24 05:33 11/04/24 11/04/24 11/05/24 14:59 22:59 06:59 Intake Total 240 / 240 360 / 600 Output Total 700 / 700 200 / 900 Balance 240 / 240 -340 / -100 -200 / -300 Weight last 48 hrs Weight 67.755 kg Weight 70.23 kg Physical Exam Narrative: Elderly man, ill-appearing, cachectic in bed no apparent distress. vs noted heent- nc/at eomi neck supple lungs clear heart regular abd soft + bs ext no edema Neuro -lethargic, moves. Urinary Catheter Management: Perdomo: Cath Placed During This Visit: yes Reason for Continuing Indwelling Catheter: Other Urinary Catheter Date of Insertion: 11/01/24 Urinary Catheter Time of Insertion: 00:01 Data 11/03/24 04:57 11/05/24 04:49 A&P Assessment and plan 1. GUS (acute kidney injury): 1. Acute kidney injury: Associated with severe hyperkalemia and metabolic acidosis, likely prerenal etiology. Please also note patient has history of a partial nephrectomy. Continue to hold off on nephrotoxic medications. CT scan does not show any obstruction. Please follow-up serologies. So far negative. - The patient has low magnesium potassium and phosphorus. Please monitor for diarrhea versus improving renal function. At this time we will replace potassium phosphorus and magnesium IV. Monitor chemistries. 2. History of hypertension holding lisinopril 3. History of diabetes hold, holding metformin 4. Anion gap metabolic acidosis: In the setting of poor p.o. intake, - now normal bicarbonate 5. The patient is off of pressors. Patient evaluated using audiovisual cart. Time spent 30 minutes Plan: see above PDMP PDMP Reviewed: Not Reviewed Attestations Medical Necessity Statement*: Patient has decreased electrolytes low potassium magnesium and phosphorus. Will replace and monitor. Time Spent in Patient Care: 16 - 35 minutes (>than 50% of time spent in counselling and/or direct pt care on unit). Coding Level of Care Code Acute Code for Chg Fwd Diagnoses GUS (acute kidney injury) N17.9
[2024-11-05] MEDS: erythromycin Op Oint 1 gm 1 APPLIC EYE-BOTH ×3 (07:50→16:53)
[2024-11-05] MEDS: dorzolamide/timolol Op Soln 10 mL Btl 1 DROP EYE-RIGHT ×2 (07:51→16:53)
--- NOTE | 2024-11-05 09:23 | PC.SOCIAL ---
IMM Update pg 2 of IMM updated and reviewed w/ patient and family. Copy provided and copy dated, initialed and placed in chart.
[2024-11-05] MEDS: magnesium sulfate premix 1 GM/100 ML PIGGYBACK IV (09:43)
[2024-11-05 10:24] LABS: THYROID PEROXIDASE ANTIBODIES <1 IU/mL (<9)
[2024-11-05] MEDS: gadobenate dimeglumine 20 mL vial 15 ML IV (13:06)
--- NOTE | 2024-11-05 14:01 | P.PN_ITS ---
Subjective 2 Subjective: seen this am pt confused this am Vitals/I&O/Wt Last Vital Signs Temp 98.5 F 11/05/24 10:34 Pulse 97 11/05/24 10:34 Resp 17 11/05/24 10:34 BP 113/52 11/05/24 10:34 Pulse Ox 90 11/05/24 10:34 O2 Del Method Room Air 11/05/24 10:34 11/04/24 11/05/24 11/05/24 22:59 06:59 14:59 Intake Total 360 / 600 100 / 100 Output Total 700 / 700 200 / 900 Balance -340 / -100 -200 / -300 100 / 100 Weight last 48 hrs Weight 67.755 kg Weight 70.23 kg Physical Exam 2 Narrative: General: No acute distress, confused, AO x 1 to 2, alert to self, HEENT: PERRLA, pupils bilaterally equal and reactive Chest: Normal vesicular breath sounds, equal good air entry bilaterally CVS: S1-S2 regular, Abdomen: Soft, nontender, bowel sounds present Neuro: No focal deficits, no facial deformity, follows some commands Urinary Catheter Management: Perdomo: Cath Placed During This Visit: yes Reason for Continuing Indwelling Catheter: Other Urinary Catheter Date of Insertion: 11/01/24 Urinary Catheter Time of Insertion: 00:01 Data 11/03/24 04:57 11/05/24 04:49 A&P Assessment and plan 1. Encephalopathy: Most likely in setting of uremia. Infectious cause less likely. Stroke less likely. Will check CT head if does not improve in next 24 hours. LFTs within normal limits. Frequent reorientation. Sitter if needed. Mentation slightly improving today. Cannot rule out underlying dementia. For now start patient on donepezil 10 mg at bedtime, Seroquel 25 mg nightly. 2. Renal failure: Appreciate medical reconciliation. Most likely a combination of lisinopril, metformin. Medical reconciliation done for nephrotoxic drugs. Patient does not remember being told of kidney problems in the past. 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 Improving. Metabolic acidosis improving. Uremia trending down. Hold off on bicarb drip. Switch to NS at 100 cc/h. If oral intake improves can discontinue fluids. Appreciate nephrology recommendations. Perdomo catheterization. Strict input output charting, daily weights. Appreciate urine lites, urine creatinine, urine eosinophil, urinalysis. CT on pelvis negative for obstructive nephropathy. 3. Hypotension: Maintain mean over 65. Hypotensive earlier in the day. Most likely in setting of dehydration. If not able to maintain can plan of Levophed depending on the goals of blood pressure. Continue to monitor blood pressures. 4. Acute hyperkalemia: Monitor every 12 hourly. Treatment according to goal of potassium around 4. 5. Uremia: Improving. 6. High anion gap metabolic acidosis: Resolved. 7. Hypertension: Goal blood pressure less than 140/90 mmHg. 8. Type 2 diabetes mellitus: Appreciate A1c. Will hold off on sliding scale. Hypoglycemia protocol. Plan: CODE STATUS: Discussed in detail with the patient. Daughter and son-in-law will be the DPOA. Patient is agreeable to be full code for now. He would like to think further before making any decision for now. In case if needed he is also agreeable for dialysis. Famotidine for PUD prophylaxis Renal nondialysis diet. Heparin 5000 every 12 hourly for DVT prophylaxis 11/03/2024 Creatinine 1.3, potassium 3.4, lithium 1.5, phosphorus 3.1. WBC normal, hemoglobin 11.9, platelets 134. Reviewed CT abdomen/pelvis from admission no acute concerning abnormalities head CT negative for acute pathology chest x-ray shows no acute findings. Urine culture shows no growth. Blood cultures negative to date. Patient's mental status seems to be possibly at baseline with progression of dementia. Unsure of patient's baseline at home. Will call family. He is able to tell us that he has 3 kids. Currently has a sitter in place. Was started on Seroquel by admitting physician. Continue to monitor at this time. Check PT OT. 11/04/2024 seen this morning pt remains confused I was able to talk to the patient's daughter yesterday at bedside. She stated that patient was taking Prevagen at home. Since he lives alone they are unaware of noticing any major memory issues. She stated that he was mowing the lawn up until this hospitalization. We discussed multiple reasons of confusion altered mental status with possibility of underlying early dementia and hospital- acquired delirium versus metabolic encephalopathy secondary to GUS which is improving. MRI was done this morning, awaiting results Alzheimer's dementia workup has been ordered. Neurology recommendations appreciated. ? Continue Aricept ? Stop Seroquel at nighttime Add Zyprexa 2.5 twice daily. Patient will likely need halfway placement secondary to cognitive impairment He is unable to participate in [place] assessment or BIMS. Continue to monitor at this time. PDMP PDMP Reviewed: Not Reviewed Attestations 2 Medical Necessity Statement*: Altered mental status Diagnoses Encephalopathy G93.40 Renal failure N19 Hypotension I95.9 Acute hyperkalemia E87.5 Uremia N19 High anion gap metabolic acidosis E87.29 Hypertension I10 Type 2 diabetes mellitus E11.9
--- NOTE | 2024-11-05 14:41 | PC.OT ---
OT TREATMENT ATTEMPTED TWICE TODAY. IN A.M. AT FIRST ATTEMPT; PATIENT SLEEPING SOUNDLY IN P.M. PATIENT AWAKE BUT UNABLE TO MAKE EYE CONTACT OR FOLLOW ANY DIRECTIONS. PATIENT UNABLE TO SEE OT STUDENT STANDING IN PINK SCRUBS AT END OF BED DESPITE MAX VERBAL/VISUAL CUES. PATIENT REPORTS THAT THERE ARE ARABS IN THE ROOM AND POINTS TO THE WINDOW. STATES THAT THERE IS ONE SITTING ON HIS SHOULDER (R) AND DON'T LOOK AT HIM OR HE WILL SMILE REALLY BIG
--- NOTE | 2024-11-05 18:23 | MR_ITS ---
WS: [id number] MRI BRAIN WITH AND WITHOUT CONTRAST HISTORY: altered mental status COMPARISON: CT head 10/31/2024 TECHNIQUE: Multiplanar imaging performed through the brain with MultiHance 15 ml's IV. Quality this examination is significantly compromised by motion artifact. No acute infarcts are seen. Singletary-white matter differentiation is well preserved. Moderate symmetric atrophy in the cerebrum and cerebellum. Advanced small vessel ischemic type changes surrounding the ventricles and extending into the subcortical white matter. No susceptibility artifacts or prior lacunar infarcts. Mildly prominent ventricles on the basis of atrophy. Clivus and pituitary gland are normal. Visualized posterior fossa and brainstem are also normal. Postcontrast imaging limited by motion but no enhancing masses identified. Limited evaluation of the dural venous sinuses and unga of [place]. Paranasal sinuses: Well aerated with no significant disease. Mastoid air cells: Normal. Calvarium and scalp: Normal. MR/MR head wo/w con [id number] IMPRESSION: 1. Normal diffusion imaging. No acute infarct. 2. 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 3. Moderate symmetric cerebral and cerebellar atrophy. 4. Study limited by motion. No abnormal enhancement identified.
[2024-11-06 03:00] VITALS: BP 122/73; PULSE 68; RESP 17; TEMP 37; O2SAT 95
[2024-11-06 05:26] LABS: PROTEIN, TOTAL 3.1 g/dL (6.1-8.1)
[2024-11-06 05:28] LABS: Alanine Aminotransferase 12 U/L (0-41); Albumin Level 2.9 g/dL (3.5-5.2); Alkaline Phosphatase 70 U/L (40-130); Aspartate Amino Transferase 28 U/L (0-40); Blood Urea Nitrogen 23 mg/dL (8-23); Calcium 8.5 mg/dL (8.5-10.5); Carbon Dioxide 22 mmol/L (22-29); Chloride 104 mmol/L (98-107); Creatinine Clr Calc Pharmacy 35.8484; Globulin 2.6 g/dL (1.3-4.6); Glucose 140 mg/dL (65-115); Magnesium 1.8 mg/dL (1.7-2.3); Osmolality Calculated 304 mOsm/kg (285-295); Sodium 144 mmol/L (136-145); Total Protein 5.5 g/dL (6.6-8.7)
[2024-11-06 05:29] LABS: Anion Gap 21.8 (5-19); Potassium 3.8 mmol/L (3.5-5.1)
[2024-11-06 07:00] VITALS: RESP 15; TEMP 36.8
[2024-11-06 09:41] LABS: RPR w(Moniotor) w/REFL Titer NON-REACTIVE (NON-REACTIVE)
[2024-11-06] MEDS: erythromycin Op Oint 1 gm 1 APPLIC EYE-BOTH ×4 (09:50→21:19)
[2024-11-06] MEDS: dorzolamide/timolol Op Soln 10 mL Btl 1 DROP EYE-RIGHT ×2 (09:50→17:53)
--- NOTE | 2024-11-06 10:32 | P.PN_ITS ---
Subjective 2 Subjective: The patient seen and examined. He is very lethargic. He responds but not following commands. There is unclear how much he is eating. Denies complaints however history is not reliable. Medications: Reviewed: Yes Medication Review Details: Current Medications Acetaminophen (Acetaminophen 325 Mg Tablet) 650 mg PO Q6H PRN PRN Reason: Mild/Mod Pain Or Temp >/= 101 Denture Adhesive (Fixodent 39 Gm Tube) 1 applic DENTAL PRN PRN PRN Reason: denture adhesive Last Admin: 11/02/24 17:37 Dose: 1 applic Denture Adhesive (Efferdent Effervescent) 1 each DENTAL PRN PRN PRN Reason: denture cleanse Last Admin: 11/05/24 03:16 Dose: 1 each Docusate Sodium (Docusate Sodium 100 Mg Capsule) 100 mg PO BID [facility] Last Admin: 11/06/24 09:49 Dose: 100 mg Donepezil HCl (Donepezil 5 Mg Tablet) 10 mg PO BEDTIME [facility] Last Admin: 11/05/24 23:44 Dose: Not Given Dorzolamide/Timolol (Dorzolamide/Timolol Op Soln 10 Ml Btl) 1 drop EYE-RIGHT BID [facility] Last Admin: 11/06/24 09:50 Dose: 1 drop Erythromycin (Erythromycin Op Oint 1 Gm) 1 applic EYE-BOTH QID [facility]; Protocol Last Admin: 11/06/24 09:50 Dose: 1 applic Famotidine (Famotidine 20 Mg/2 Ml Inj) 20 mg IVP Q12H [facility] Last Admin: 11/05/24 23:44 Dose: Not Given Heparin Sodium (Porcine) (Heparin 5,000 Unit/Ml Inj 1 Ml) 5,000 unit SUBCUT Q12H [facility] Last Admin: 11/05/24 23:45 Dose: Not Given Dextrose (D10w) 250 mls @ 1,000 mls/hr IV PRN PRN PRN Reason: HYPOGLYCEMIA Last Infusion: 10/31/24 22:20 Dose: Infused Lactulose (Lactulose Oral Liq 20 Gm/30 Ml Udc) 10 gm PO DAILY PRN; Protocol PRN Reason: Constipation (see protocol) Magnesium Oxide (Magnesium Oxide 400 Mg Tablet) 400 mg PO BID [facility] Stop: 11/07/24 08:00 Last Admin: 11/06/24 09:49 Dose: 400 mg Morphine Sulfate (Morphine 4 Mg/Ml Sdv 1 Ml) 2 mg IVP Q4H PRN PRN Reason: SEVERE PAIN Olanzapine (Olanzapine 5 Mg Tablet) 2.5 mg PO BID [facility] Last Admin: 11/06/24 09:49 Dose: 2.5 mg Ondansetron HCl (Ondansetron 2 Mg/Ml Sdv 2 Ml) 4 mg IVP Q6H PRN PRN Reason: vomiting, or N/V if npo Potassium Phosphate (Phosphorus 250 Mg Tablet) 250 mg PO BID [facility] Stop: 11/07/24 07:43 Last Admin: 11/06/24 09:49 Dose: 250 mg Vitals/I&O/Wt Last Vital Signs Temp 98.3 F 11/06/24 07:00 Pulse 68 11/06/24 03:00 Resp 15 11/06/24 07:00 BP 122/73 11/06/24 03:00 Pulse Ox 95 11/06/24 03:00 O2 Del Method Room Air 11/06/24 03:00 11/05/24 11/06/24 11/06/24 22:59 06:59 14:59 Intake Total 20 / 120 120 / 120 Output Total 600 / 600 200 / 800 Balance -580 / -480 -200 / -680 120 / 120 Weight last 48 hrs Weight 66.224 kg Weight 67.755 kg Physical Exam 2 Narrative: Elderly man, ill-appearing, cachectic in bed no apparent distress. vs noted heent- nc/at eomi neck supple lungs clear heart regular abd soft + bs ext no edema Neuro -lethargic, responds to pain not to voice. Urinary Catheter Management: Perdomo: Cath Placed During This Visit: yes Reason for Continuing Indwelling Catheter: Other Urinary Catheter Date of Insertion: 11/01/24 Urinary Catheter Time of Insertion: 00:01 Data 11/03/24 04:57 11/06/24 04:35 Micro: Microbiology 10/31/24 18:14 Blood Culture - Final Blood NO GROWTH AFTER 5 DAYS 10/31/24 18:11 Blood Culture - Final Blood NO GROWTH AFTER 5 DAYS A&P Assessment and plan 1. GUS (acute kidney injury): 1. Acute kidney injury: Associated with severe hyperkalemia and metabolic acidosis, likely prerenal etiology. Please also note patient has history of a partial nephrectomy. Continue to hold off on nephrotoxic medications. CT scan does not show any obstruction. Please follow-up serologies. So far negative. - Renal function worsened again off of IV fluids. Will restart hypotonic IV fluids. Monitor chemistries. 2. History of hypertension holding lisinopril. Blood pressure on low side 3. History of diabetes hold, holding metformin 4. Patient has any increased anion gap metabolic acidosis again. Magnesium phosphorus and potassium appear to be improving. Patient needs nutrition. Check ABG consider limiting meds that may affect his mental status Patient evaluated using audiovisual cart. Time spent 30 minutes Plan: see above PDMP PDMP Reviewed: Not Reviewed Attestations 2 Medical Necessity Statement*: Increased anion gap metabolic acidosis, confusion, acute kidney injury on CKD Time Spent in Patient Care: 16 - 35 minutes (>than 50% of time sp ent in counselling and/or direct pt care on unit) . Coding Level of Care Code Acute Code for Chg Fwd Diagnoses GUS (acute kidney injury) N17.9
[2024-11-06 11:00] VITALS: BP 124/61; PULSE 113; RESP 17; TEMP 38.2; O2SAT 95
[2024-11-06] MEDS: heparin 5,000 unit/mL INJ 1 mL 5000 UNIT SUBCUT ×2 (11:25→23:52)
--- NOTE | 2024-11-06 11:28 | CT_ITS ---
WS: [id number] CT CHEST, ABDOMEN, AND PELVIS TECHNIQUE: Noncontrast CT of the chest, abdomen, and pelvis with coronal and sagittal reformatted images. CLINICAL INFORMATION: fever, altered mental status COMPARISON: None. DLP: 882.[address] scans at [facility] use at least one of these dose optimization techniques: automated exposure control; mA and/or kV adjustment per patient size (includes targeted exams where dose is matched to clinical indication); or iterative reconstruction. CT CHEST: New small bilateral pleural effusions with compressive atelectasis in the lung bases. Thoracolumbar scoliosis and kyphosis. Aortic calcification. Coronary calcification. No mediastinal or hilar lymphadenopathy. No axillary lymphadenopathy. Mild interstitial edema. Hypertrophic changes thoracic spine. CT ABDOMEN AND PELVIS: Cholecystectomy. Partial hepatectomy. Dense splenic artery calcification. Fatty atrophy of the pancreas. Dense celiac and SMA calcification. Dense aortic calcification. Small RIGHT adrenal adenoma. No hydronephrosis in either kidney. Perdomo catheter. Enlarged prostate. Recommend correlation PSA. Prostate measures up to 5.8 cm. Tiny supraumbilical hernia containing a portion of herniated small bowel although without obstruction. Normal sigmoid colon. Postoperative changes partial RIGHT colectomy. Advanced spondylitic changes lumbar spine. CT/[place] [id number] IMPRESSION: 1. Small bilateral pleural effusions. Compressive atelectasis in the lung base s. This is new compared to 10/31/2024 2. Prior partial hepatectomy. 3. Prior cholecystectomy. 4. Small supraumbilical hernia with small herniated loop of nonobstructed smal l bowel. This appears to have been mostly reduced compared to previous. Previou sly this contained a larger nonobstructed loop of small bowel 5. Prostamegaly. Perdomo catheter. 6. No other significant changes
[2024-11-06] MEDS: linezolid premix 600 MG/300 ML PREMIX 300 MG IV (13:42)
[2024-11-06] MEDS: piperacillin-tazobactam 3.375 GM in sodium chloride 0.9% (plus) 50 ML IV ×2 (13:42→21:18)
--- NOTE | 2024-11-06 14:17 | PM.PN ---
Subjective Subjective: Patient appears to be still confused however today has a fever of 100.7. Daughter at bedside. Creatinine 1.5. Vitals/I&O/Wt Last Vital Signs Temp 100.7 F H 11/06/24 11:00 Pulse 113 H 11/06/24 11:00 Resp 17 11/06/24 11:00 BP 124/61 11/06/24 11:00 Pulse Ox 95 11/06/24 11:00 O2 Del Method Room Air 11/06/24 11:00 11/05/24 11/06/24 11/06/24 22:59 06:59 14:59 Intake Total 20 / 120 120 / 120 Output Total 600 / 600 200 / 800 Balance -580 / -480 -200 / -680 120 / 120 Weight last 48 hrs Weight 66.224 kg Weight 67.755 kg Physical Exam Narrative: General: No acute distress, confused, no neck stiffness HEENT: PERRLA, pupils bilaterally equal and reactive Chest: Normal vesicular breath sounds, equal good air entry bilaterally CVS: S1-S2 regular, Abdomen: Soft, nontender, bowel sounds present Neuro: No focal deficits, no facial deformity, follows some commands Urinary Catheter Management: Perdomo: Cath Placed During This Visit: yes Reason for Continuing Indwelling Catheter: Other Urinary Catheter Date of Insertion: 11/01/24 Urinary Catheter Time of Insertion: 00:01 Data 11/03/24 04:57 11/06/24 04:35 Micro: Microbiology 11/06/24 11:54 Blood Culture - Preliminary Blood SPECIMEN COLLECTED 11/06/24 11:52 Blood Culture - Preliminary Blood SPECIMEN COLLECTED 10/31/24 18:14 Blood Culture - Final Blood NO GROWTH AFTER 5 DAYS 10/31/24 18:11 Blood Culture - Final Blood NO GROWTH AFTER 5 DAYS A&P Assessment and plan 1. Encephalopathy: Most likely in setting of uremia. Infectious cause less likely. Stroke less likely. Will check CT head if does not improve in next 24 hours. LFTs within normal limits. Frequent reorientation. Sitter if needed. Mentation slightly improving today. Cannot rule out underlying dementia. For now start patient on donepezil 10 mg at bedtime, Seroquel 25 mg nightly. 2. Renal failure: Appreciate medical reconciliation. Most likely a combination of lisinopril, metformin. Medical reconciliation done for nephrotoxic drugs. Patient does not remember being told of kidney problems in the past. 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 Improving. Metabolic acidosis improving. Uremia trending down. Hold off on bicarb drip. Switch to NS at 100 cc/h. If oral intake improves can discontinue fluids. Appreciate nephrology recommendations. Perdomo catheterization. Strict input output charting, daily weights. Appreciate urine lites, urine creatinine, urine eosinophil, urinalysis. CT on pelvis negative for obstructive nephropathy. 3. Hypotension: Maintain mean over 65. Hypotensive earlier in the day. Most likely in setting of dehydration. If not able to maintain can plan of Levophed depending on the goals of blood pressure. Continue to monitor blood pressures. 4. Acute hyperkalemia: Monitor every 12 hourly. Treatment according to goal of potassium around 4. 5. Uremia: Improving. 6. High anion gap metabolic acidosis: Resolved. 7. Hypertension: Goal blood pressure less than 140/90 mmHg. 8. Type 2 diabetes mellitus: Appreciate A1c. Will hold off on sliding scale. Hypoglycemia protocol. Plan: CODE STATUS: Discussed in detail with the patient. Daughter and son-in-law will be the DPOA. Patient is agreeable to be full code for now. He would like to think further before making any decision for now. In case if needed he is also agreeable for dialysis. Famotidine for PUD prophylaxis Renal nondialysis diet. Heparin 5000 every 12 hourly for DVT prophylaxis 11/03/2024 Creatinine 1.3, potassium 3.4, lithium 1.5, phosphorus 3.1. WBC normal, hemoglobin 11.9, platelets 134. Reviewed CT abdomen/pelvis from admission no acute concerning abnormalities head CT negative for acute pathology chest x-ray shows no acute findings. Urine culture shows no growth. Blood cultures negative to date. Patient's mental status seems to be possibly at baseline with progression of dementia. Unsure of patient's baseline at home. Will call family. He is able to tell us that he has 3 kids. Currently has a sitter in place. Was started on Seroquel by admitting physician. Continue to monitor at this time. Check PT OT. 11/04/2024 Patient remains confused. This may be patient's new baseline. He may have delirium on underlying dementia. Possibility of underlying dementia. Consult neurology for input. Will discuss with family when they get here today. Continue Aricept and Seroquel. Blood cultures urine cultures negative to date. Creatinine is normalized at 1.2. Phosphorus 2.0. I will check MRI brain. 11/05/2024 seen this morning pt remains confused I was able to talk to the patient's daughter yesterday at bedside. She stated that patient was taking Prevagen at home. Since he lives alone they are unaware of noticing any major memory issues. She stated that he was mowing the lawn up until this hospitalization. We discussed multiple reasons of confusion altered mental status with possibility of underlying early dementia and hospital-acquired delirium versus metabolic encephalopathy secondary to GUS which is improving. MRI was done this morning, awaiting results Alzheimer's dementia workup has been ordered. Neurology recommendations appreciated. ? Continue Aricept ? Stop Seroquel at nighttime Add Zyprexa 2.5 twice daily. Patient will likely need group home placement secondary to cognitive impairment He is unable to participate in [place] assessment or BIMS. Continue to monitor at this time. 11/06/2024 Patient remains confused. Has a fever 100.[address] chest abdomen pelvis, placed on broad-spectrum antibiotics linezolid and Zosyn We stopped Seroquel yesterday and continued Aricept. Placed on Zyprexa 2.5 twice daily. Check blood cultures, urine culture, sputum Gram stain culture. Patient does not have any neck stiffness. He is altered and does have a fever however my suspicion for meningitis is low at this time. Will await for imaging studies above for further management decisions. Continue to hospitalize patient at this time. Question of aspiration? Will check speech swallow evaluation Daughter updated at bedside. PDMP PDMP Reviewed: Not Reviewed Attestations Medical Necessity Statement*: Patient has not developed a fever and remains confused. Requires further workup with antibiotics. Coding Level of Care Code 82243 Diagnoses Encephalopathy G93.40 Renal failure N19 Hypotension I95.9 Acute hyperkalemia E87.5 Uremia N19 High anion gap metabolic acidosis E87.29 Hypertension I10 Type 2 diabetes mellitus E11.9
[2024-11-06 14:39] LABS: DNA AB (DS) CRITHIDIA,IFA NEGATIVE (NEGATIVE)
[2024-11-06 15:56] VITALS: BP 119/75; PULSE 100; TEMP 36.6; O2SAT 85
[2024-11-06 19:50] VITALS: BP 118/80; PULSE 105; RESP 13; TEMP 38.1; O2SAT 88
--- NOTE | 2024-11-06 19:52 | PC.NURSE ---
This COAL OR ORE CONTROLLER was completing the schedualed vitals for 1999 patient was sating at 88 for his oxygen level nurse notified applying supplemental oxygen
--- NOTE | 2024-11-06 21:22 | PC.NURSE ---
This nurse rounded on patient while assistant printer floor covering was completing 2000 vitals. Patient o2 sats were at 88% on RA. This nurse started supplemental o2 at 2L via NC. This nurse will continue to monitor.
[2024-11-07 00:10] VITALS: BP 131/76; PULSE 110; RESP 17; TEMP 38.4; O2SAT 92
[2024-11-07] MEDS: linezolid premix 600 MG/300 ML PREMIX 300 MG IV ×2 (01:56→13:44)
[2024-11-07 04:56] LABS: Alanine Aminotransferase 13 U/L (0-41); Albumin Level 2.9 g/dL (3.5-5.2); Alkaline Phosphatase 71 U/L (40-130); Anion Gap 18.3 (5-19); Aspartate Amino Transferase 25 U/L (0-40); Blood Urea Nitrogen 27 mg/dL (8-23); Calcium 8.2 mg/dL (8.5-10.5); Carbon Dioxide 24 mmol/L (22-29); Chloride 103 mmol/L (98-107); Creatinine Clr Calc Pharmacy 38.4090; Globulin 2.4 g/dL (1.3-4.6); Glucose 187 mg/dL (65-115); Magnesium 1.7 mg/dL (1.7-2.3); Osmolality Calculated 304 mOsm/kg (285-295); Potassium 3.3 mmol/L (3.5-5.1); Sodium 142 mmol/L (136-145); Total Protein 5.3 g/dL (6.6-8.7)
[2024-11-07] MEDS: piperacillin-tazobactam 3.375 GM in sodium chloride 0.9% (plus) 50 ML IV ×3 (05:12→22:26)
[2024-11-07 05:38] VITALS: BP 122/73; PULSE 89; RESP 13; TEMP 37.1; O2SAT 91
[2024-11-07 08:16] VITALS: BP 93/60; PULSE 85; RESP 17; TEMP 36.4; O2SAT 94
--- NOTE | 2024-11-07 09:09 | CT_ITS ---
WS: [id number] CT LUMBAR SPINE TECHNIQUE: Noncontrast CT of the lumbar spine with coronal and sagittal reformatted images. CLINICAL INFORMATION: ams, fever COMPARISON: None. DLP: 476.[address] scans at [facility] use at least one of these dose optimization techniques: automated exposure control; mA and/or kV adjustment per patient size (includes targeted exams where dose is matched to clinical indication); or iterative reconstruction. FINDINGS: Advanced spondylitic changes lumbar spine. Multilevel disc space narrowing throughout the lumbar spine worse at L3-L4 and L4-L5. Anterior hypertrophic changes. Dense vascular calcification. Mild lumbar scoliosis. Small bilateral pleural effusions partially visualized. L1-L2: Moderate central canal stenosis. Impingement on the RIGHT subarticular recess. Moderate facet arthropathy. Central disc osteophyte protrusion. Mild RIGHT foraminal narrowing. L2-L3: Mild disc bulging with moderate central canal stenosis. Moderate facet arthropathy. Mild RIGHT foraminal narrowing. L3-L4: Disc space narrowing with moderate to severe central canal stenosis. Moderate facet arthropathy with ligamentum flavum hypertrophy. Mild LEFT foraminal narrowing. L4-L5: Disc osteophyte complex with severe central canal stenosis. Impingement on the traversing RIGHT greater than LEFT L5 nerve roots. Severe facet arthropathy with ligamentum flavum hypertrophy. Moderate LEFT greater than RIGHT foraminal narrowing. L5-S1: Disc osteophyte complex with a central disc osteophyte protrusion. Impingement on the traversing S1 nerve roots. Moderate central canal stenosis. Moderate bilateral foraminal narrowing. Moderate facet arthropathy. CT/CT lumbar spine wo con* [id number] IMPRESSION: 1. No evidence of acute discitis or paravertebral abscess. 2. Advanced spondylitic changes described above. 3. 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
--- NOTE | 2024-11-07 09:14 | PC.SLP ---
Headed to CT per [employer]BAC[employer] SAMPLE PULLER.
--- NOTE | 2024-11-07 09:57 | FL_ITS ---
WS: [id number] LUMBAR PUNCTURE UNDER FLUOROSCOPY. HISTORY: ams fever COMPARISON: None available. FLUOROSCOPY TIME: 2min [id number] # of spot films: Procedure, complications, and risk and benefits explained to the patient. Consent was obtained. Recent laboratory work and medication are reviewed prior to procedure. Skin over the lumbar is cleansed with ChloraPrep and anesthetized with 1% buffered lidocaine. 2 separate levels were attempted to access the subarachnoid space in the lumbar spine. Fluid was noted within the needle hub and in the catheter tubing but unable to collect any significant amount. There is si gnificant osteophytosis obstructing the placement of the needle in the subarachnoid space. 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 After 2 separate levels were attempted patient has declined further attempts. FL/FL guided lumbarpunc dx* [id number] IMPRESSION: Unsuccessful attempt at obtaining CSF fluid. Thecal sac access was achieved as a small amount of CSF was noted within the needle hub and the tubing. No signif icant amount of CSF was collected. This is probably due to patient's spinal esteban nosis. Patient has denied further attempts.
--- NOTE | 2024-11-07 10:04 | PC.SOCIAL ---
IMM Updated Updated pt on IMM. No questions voiced. Provided pt a copy. Initialed, dated, & timed copy in chart.
--- NOTE | 2024-11-07 10:44 | PC.SLP ---
Spoke with AN Moreno regarding the TPN diet that was ordered. Tiffanie is asking if LOAD TALLIER needs to attempt a reevaluation to determine if an oral diet is appropriate at this time. Waiting on Tiffanie to call back.
--- NOTE | 2024-11-07 10:54 | PC.NUTR ---
Received verbal consult for PPN. Recommend beginning PPN at 23mls/hr, increasing by 20mls Q4-8H until goal rate of 83mls/hr is reached; to include 10mls/day MV, 20gm/100mls fat emulsion. PPN @ 83mls/hr will provide 680kcals+200kcals from FE or 49% Pt's estimated calorie needs and 85 grams protein or 105% Pt's estimated protein needs.
[2024-11-07] MEDS: dorzolamide/timolol Op Soln 10 mL Btl 1 DROP EYE-RIGHT ×2 (10:57→17:09)
[2024-11-07] MEDS: erythromycin Op Oint 1 gm 1 APPLIC EYE-BOTH ×4 (10:58→20:54)
[2024-11-07 13:09] VITALS: BP 110/69; PULSE 81; RESP 18; TEMP 36.4; O2SAT 90
--- NOTE | 2024-11-07 13:18 | PC.SLP ---
Pt was not in the room when the therapist went to check on the patient.
--- NOTE | 2024-11-07 14:19 | PC.SLP ---
Pt sound asleep! Will attempt later if awake.
--- NOTE | 2024-11-07 15:16 | P.PN_ITS ---
Subjective 2 Subjective: no new c/o Medications: Reviewed: Yes Vitals/I&O/Wt Last Vital Signs Temp 97.6 F 11/07/24 13:09 Pulse 81 11/07/24 13:09 Resp 18 11/07/24 13:09 BP 110/69 11/07/24 13:09 Pulse Ox 90 11/07/24 13:09 O2 Del Method Nasal Cannula 11/07/24 13:09 O2 Flow Rate 2 11/07/24 00:10 11/07/24 11/07/24 11/07/24 06:59 14:59 22:59 Intake Total 1590 / 2060 50 / 50 Output Total 225 / 225 Balance 1365 / 1835 50 / 50 Weight last 48 hrs Weight 66.224 kg Weight 66.224 kg Physical Exam 2 Narrative: Elderly man, ill-appearing, cachectic in bed no apparent distress. vs noted heent- nc/at eomi neck supple lungs clear heart regular abd soft + bs ext no edema Neuro -lethargic, responds to pain not to voice. Urinary Catheter Management: Perdomo: Cath Placed During This Visit: yes Reason for Continuing Indwelling Catheter: Other Urinary Catheter Date of Insertion: 11/01/24 Urinary Catheter Time of Insertion: 00:01 Data 11/03/24 04:57 11/07/24 03:50 Micro: Microbiology 11/06/24 11:54 Blood Culture - Preliminary Blood NEGATIVE TO DATE 11/06/24 11:52 Blood Culture - Preliminary Blood NEGATIVE TO DATE A&P Assessment and plan 1. GUS (acute kidney injury): 1. Acute kidney injury: Associated with severe hyperkalemia and metabolic acidosis, likely prerenal etiology. Please also note patient has history of a partial nephrectomy. Continue to hold off on nephrotoxic medications. CT scan does not show any obstruction. Please follow-up serologies. So far negative. -on IVFs 2. History of hypertension holding lisinopril. Blood pressure on low side 3. History of diabetes hold, holding metformin 4. Patient has any increased anion gap metabolic acidosis again. Magnesium phosphorus and potassium appear to be improving. Patient needs nutrition. Check ABG consider limiting meds that may affect his mental status Patient evaluated using audiovisual cart. Time spent 30 minutes Plan: see above PDMP PDMP Reviewed: Not Reviewed Attestations 2 Medical Necessity Statement*: per callie Coding Level of Care Code Acute Code for Chg Fwd Diagnoses GUS (acute kidney injury) N17.9
--- NOTE | 2024-11-07 15:44 | P.PN_ITS ---
Vitals/I&O/Wt Last Vital Signs Temp 97.6 F 11/07/24 13:09 Pulse 81 11/07/24 13:09 Resp 18 11/07/24 13:09 BP 110/69 11/07/24 13:09 Pulse Ox 90 11/07/24 13:09 O2 Del Method Nasal Cannula 11/07/24 13:09 O2 Flow Rate 2 11/07/24 00:10 11/07/24 11/07/24 11/07/24 06:59 14:59 22:59 Intake Total 1590 / 2060 50 / 50 Output Total 225 / 225 Balance 1365 / 1835 50 / 50 Weight last 48 hrs Weight 66.224 kg Weight 66.224 kg Physical Exam 2 Narrative: General: No acute distress, confused, no neck stiffness, temporal wasting present, appears deconditioned and weak. HEENT: PERRLA, pupils bilaterally equal and reactive Chest: Normal vesicular breath sounds, equal good air entry bilaterally CVS: S1-S2 regular, Abdomen: Soft, nontender, bowel sounds present Neuro: No focal deficits, no facial deformity, follows commands Urinary Catheter Management: Perdomo: Cath Placed During This Visit: yes Reason for Continuing Indwelling Catheter: Other Urinary Catheter Date of Insertion: 11/01/24 Urinary Catheter Time of Insertion: 00:01 Data 11/03/24 04:57 11/07/24 03:50 Micro: Microbiology 11/06/24 11:54 Blood Culture - Preliminary Blood NEGATIVE TO DATE 11/06/24 11:52 Blood Culture - Preliminary Blood NEGATIVE TO DATE A&P Assessment and plan 1. Encephalopathy: Most likely in setting of uremia. Infectious cause less likely. Stroke less likely. Will check CT head if does not improve in next 24 hours. LFTs within normal limits. Frequent reorientation. Sitter if needed. Mentation slightly improving today. Cannot rule out underlying dementia. For now start patient on donepezil 10 mg at bedtime, Seroquel 25 mg nightly. 2. Renal failure: Appreciate medical reconciliation. Most likely a combination of lisinopril, metformin. Medical reconciliation done for nephrotoxic drugs. Patient does not remember being told of kidney problems in the past. 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 Improving. Metabolic acidosis improving. Uremia trending down. Hold off on bicarb drip. Switch to NS at 100 cc/h. If oral intake improves can discontinue fluids. Appreciate nephrology recommendations. Perdomo catheterization. Strict input output charting, daily weights. Appreciate urine lites, urine creatinine, urine eosinophil, urinalysis. CT on pelvis negative for obstructive nephropathy. 3. Hypotension: Maintain mean over 65. Hypotensive earlier in the day. Most likely in setting of dehydration. If not able to maintain can plan of Levophed depending on the goals of blood pressure. Continue to monitor blood pressures. 4. Acute hyperkalemia: Monitor every 12 hourly. Treatment according to goal of potassium around 4. 5. Uremia: Improving. 6. High anion gap metabolic acidosis: Resolved. 7. Hypertension: Goal blood pressure less than 140/90 mmHg. 8. Type 2 diabetes mellitus: Appreciate A1c. Will hold off on sliding scale. Hypoglycemia protocol. 9. Protein calorie malnutrition: 10. Dysphagia: 11. Aspiration into airway: Plan: CODE STATUS: Discussed in detail with the patient. Daughter and son-in-law will be the DPOA. Patient is agreeable to be full code for now. He would like to think further before making any decision for now. In case if needed he is also agreeable for dialysis. Famotidine for PUD prophylaxis Renal nondialysis diet. Heparin 5000 every 12 hourly for DVT prophylaxis 11/03/2024 Creatinine 1.3, potassium 3.4, lithium 1.5, phosphorus 3.1. WBC normal, hemoglobin 11.9, platelets 134. Reviewed CT abdomen/pelvis from admission no acute concerning abnormalities head CT negative for acute pathology chest x-ray shows no acute findings. Urine culture shows no growth. Blood cultures negative to date. Patient's mental status seems to be possibly at baseline with progression of dementia. Unsure of patient's baseline at home. Will call family. He is able to tell us that he has 3 kids. Currently has a sitter in place. Was started on Seroquel by admitting physician. Continue to monitor at this time. Check PT OT. 11/04/2024 Patient remains confused. This may be patient's new baseline. He may have delirium on underlying dementia. Possibility of underlying dementia. Consult neurology for input. Will discuss with family when they get here today. Continue Aricept and Seroquel. Blood cultures urine cultures negative to date. Creatinine is normalized at 1.2. Phosphorus 2.0. I will check MRI brain. 11/05/2024 seen this morning pt remains confused I was able to talk to the patient's daughter yesterday at bedside. She stated that patient was taking Prevagen at home. Since he lives alone they are unaware of noticing any major memory issues. She stated that he was mowing the lawn up until this hospitalization. We discussed multiple reasons of confusion altered mental status with possibility of underlying early dementia and hospital- acquired delirium versus metabolic encephalopathy secondary to GUS which is improving. MRI was done this morning, awaiting results Alzheimer's dementia workup has been ordered. Neurology recommendations appreciated. ? Continue Aricept ? Stop Seroquel at nighttime Add Zyprexa 2.5 twice daily. Patient will likely need alf placement secondary to cognitive impairment He is unable to participate in [place] assessment or BIMS. Continue to monitor at this time. 11/06/2024 Patient remains confused. Has a fever 100.[address] chest abdomen pelvis, placed on broad-spectrum antibiotics linezolid and Zosyn We stopped Seroquel yesterday and continued Aricept. Placed on Zyprexa 2.5 twice daily. Check blood cultures, urine culture, sputum Gram stain culture. Patient does not have any neck stiffness. He is altered and does have a fever however my suspicion for meningitis is low at this time. Will await for imaging studies above for further management decisions. Continue to hospitalize patient at this time. Question of aspiration? Will check speech swallow evaluation Daughter updated at bedside. 11/07/2024 Overnight was febrile 101.6. Continues on it and Zosyn. Continue Aricept, Zyprexa Blood cultures urine culture negative to date. Does not have any neck stiffness. Discussed with family regarding potentially checking a lumbar puncture. It was attempted today however unable to obtain any spinal fluid secondary to patient spinal stenosis. CSF studies could not be done. Patient most likely aspirated. ? I discussed with patient's daughter that he has deconditioning and is weak and his intake is poor. He weighs 66 kg BMI is 19. He has severe protein calorie malnutrition. ? I suspect that his condition is partly because of weakness secondary to inadequate caloric intake. ? We will start PPN today and see if there is improvement in patient's weakness. If he continues to not eat feeding tube will need to be offered to the family at that point. ? Patient was seen by speech evaluation yesterday n.p.o. status was started. ? Earlier during the hospital course he was able to drink however has gotten weaker progressively. ? I will treat for aspiration pneumonia at this time based on clinical suspicion ? Continue IV fluids 30 cc/h. Will need to watch closely for fluid overload. ? Patient was seen twice today. Went back to visit him around 4:30 PM. He was awake and talking. However he told me he was tired and wanted to sleep. He was still somewhat confused however was able to tell me his name and date of . PDMP PDMP Reviewed: Not Reviewed Attestations 2 Medical Necessity Statement*: Being treated for aspiration has a fever. Dysphagia on PPN at this time. Diagnoses Encephalopathy G93.40 Renal failure N19 Hypotension I95.9 Acute hyperkalemia E87.5 Uremia N19 High anion gap metabolic acidosis E87.29 Hypertension I10 Type 2 diabetes mellitus E11.9 Protein calorie malnutrition E46 Dysphagia R13.10 Aspiration into airway T17.908A
--- NOTE | 2024-11-07 16:00 | PC.SLP ---
Spoke with Tiffanie NOLAN and recommended to wait until tomorrow to reassess swallowing at bedside.
[2024-11-07] MEDS: multivitamin inj 10 ML in AA-Dex 4.25%-5% w/Lytes 1,000 ML 83 ML IV (17:15)
[2024-11-07 17:18] VITALS: BP 116/67; PULSE 86; RESP 19; TEMP 36.3; O2SAT 99
[2024-11-07 17:25] LABS: ALPHA 1 GLOBULIN 0.2 g/dL (0.2-0.3); ALPHA 2 GLOBULIN 0.3 g/dL (0.5-0.9); BETA 1 GLOBULIN 0.2 g/dL (0.4-0.6); BETA 2 GLOBULIN 0.1 g/dL (0.2-0.5)
[2024-11-07 20:00] VITALS: BP 120/78; PULSE 87; RESP 12; TEMP 36.5; O2SAT 92
[2024-11-08] VITALS (7 sets, daily range): BP systolic 117–135; BP diastolic 68–79; PULSE 83–100; RESP 16–18; TEMP 36.3–37.1; O2SAT 90–98
[2024-11-08 00:45] LABS: Phosphorylated tau217 1.45 pg/mL (< OR = 0.15)
[2024-11-08 02:15] LABS: Hematocrit 37.0 % (37-53); Hemoglobin 12.00 g/dL (11.27-16.99); Mean Corpuscular HGB Conc 32.4 g/dL (30-55); Mean Corpuscular Hemoglobin 30.7 pg (27-33); Mean Corpuscular Volume 94.6 fl (82-101); Nucleated Red Blood Cells % 0 %; Platelet Count 124 10^3/cmm (157-399); Red Blood Count 3.91 10^6/uL (3.85-5.65); White Blood Count 10.17 10^3/uL (3.29-11.43)
--- NOTE | 2024-11-08 02:33 | PC.NURSE ---
point of care technician notified this nurse that patient was in the floor. PULP MIXER and this nurse walked in to the patients room and found the patient on his knees in the floor by his bed. After assessing the patient no injuries were noted. PULP MIXER assisted patient back into bed. VS stable and WNL. Physician notified.
[2024-11-08 02:43] LABS: Alanine Aminotransferase 13 U/L (0-41); Albumin Level 2.9 g/dL (3.5-5.2); Alkaline Phosphatase 53 U/L (40-130); Aspartate Amino Transferase 25 U/L (0-40); Blood Urea Nitrogen 33 mg/dL (8-23); Calcium 8.3 mg/dL (8.5-10.5); Carbon Dioxide 22 mmol/L (22-29); Chloride 102 mmol/L (98-107); Creatinine Clr Calc Pharmacy 35.8484; Globulin 2.1 g/dL (1.3-4.6); Glucose 159 mg/dL (65-115); Magnesium 1.9 mg/dL (1.7-2.3); Osmolality Calculated 303 mOsm/kg (285-295); Sodium 141 mmol/L (136-145); Total Protein 5.0 g/dL (6.6-8.7)
[2024-11-08 02:45] LABS: Anion Gap 20.6 (5-19); Potassium 3.6 mmol/L (3.5-5.1)
[2024-11-08] MEDS: linezolid premix 600 MG/300 ML PREMIX 300 MG IV ×2 (03:01→14:58)
[2024-11-08] MEDS: piperacillin-tazobactam 3.375 GM in sodium chloride 0.9% (plus) 50 ML IV ×3 (05:38→21:22)
[2024-11-08] MEDS: dorzolamide/timolol Op Soln 10 mL Btl 1 DROP EYE-RIGHT ×2 (05:39→18:05)
--- NOTE | 2024-11-08 06:26 | CTR_ITS ---
PROCEDURE INFORMATION: Exam: CT Head Without Contrast Exam date and time: 11/08/2024 1:31 PM Age: 89 years old Clinical indication: Injury or trauma; Fall; Blunt trauma (contusions or hematomas); Additional info: Unwitnessed fall TECHNIQUE: Imaging protocol: Computed tomography of the head without contrast. Radiation optimization: All CT scans at this facility use at least one of these dose optimization techniques: automated exposure control; mA and/or kV adjustment per patient size (includes targeted exams where dose is matched to clinical indication); or iterative reconstruction. COMPARISON: MR head wo/w con [id number] 11/05/2024 12:33 PM RADIATION DOSE METRICS: Total DLP (mGy-cm): 1798.78 FINDINGS: Brain: Moderate periventricular and subcortical white matter low-density bilaterally. No acute intracranial hemorrhage. Cerebral ventricles: Prominence of ventricles and sulci consistent with [id number] generalized cerebral volume loss. Paranasal sinuses: Visualized sinuses are unremarkable. No fluid levels. Mastoid air cells: Visualized mastoid air cells are well aerated. Bones: Unremarkable. No acute fracture. Soft tissues: There is a subcutaneous lesion which is partially imaged along the right posterior neck at the C1-C2 level. It measures at least 1.[address]/CT head wo con* [id number] IMPRESSION: 1. No acute findings. 2. Incidental subcutaneous lesion along the right posterior neck.
--- NOTE | 2024-11-08 06:35 | P.PN_ITS ---
Subjective 2 Subjective: Seen this morning. Sitting up in chair. Remains confused however appears more awake and alert. Sitter at bedside. PPN is currently running. Afebrile Creatinine 1.5 today. On 2 L nasal cannula. Saturating 94%. Vitals/I&O/Wt Last Vital Signs Temp 98.0 F 11/08/24 04:00 Pulse 100 11/08/24 04:00 Resp 18 11/08/24 04:00 BP 135/78 11/08/24 04:00 Pulse Ox 96 11/08/24 00:42 O2 Del Method Nasal Cannula 11/08/24 04:00 O2 Flow Rate 2 11/08/24 04:00 11/07/24 11/07/24 11/08/24 14:59 22:59 06:59 Intake Total 50 / 50 2016.283 / 2066.283 521.35 / 2587.633 Output Total 600 / 600 550 / 1150 Balance 50 / 50 1416.283 / 1466.283 -28.65 / 1437.633 Weight last 48 hrs Weight 69.218 kg Weight 66.224 kg Physical Exam 2 Narrative: General: No acute distress, confused, no neck stiffness, temporal wasting present, appears deconditioned and weak. Sitting up in chair today. Awake alert. Remains confused. HEENT: PERRLA, pupils bilaterally equal and reactive Chest: Normal vesicular breath sounds, equal good air entry bilaterally CVS: S1-S2 regular, Abdomen: Soft, nontender, bowel sounds present Neuro: No focal deficits, no facial deformity, follows commands Urinary Catheter Management: Perdomo: Cath Placed During This Visit: yes Reason for Continuing Indwelling Catheter: Accurate Measurement of Urinary Output in Critically Ill Patients Urinary Catheter Date of Insertion: 11/01/24 Urinary Catheter Time of Insertion: 00:01 Data 11/08/24 01:38 11/08/24 01:38 Micro: Microbiology 11/06/24 11:54 Blood Culture - Preliminary Blood NEGATIVE TO DATE 11/06/24 11:52 Blood Culture - Preliminary Blood NEGATIVE TO DATE A&P Assessment and plan 1. Encephalopathy: Most likely in setting of uremia. Infectious cause less likely. Stroke less likely. Will check CT head if does not improve in next 24 hours. LFTs within normal limits. Frequent reorientation. Sitter if needed. Mentation slightly improving today. Cannot rule out underlying dementia. For now start patient on donepezil 10 mg at bedtime, Seroquel 25 mg nightly. 2. Renal failure: Appreciate medical reconciliation. Most likely a combination of lisinopril, metformin. Medical reconciliation done for nephrotoxic drugs. Patient does not remember being told of kidney problems in the past. 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 Improving. Metabolic acidosis improving. Uremia trending down. Hold off on bicarb drip. Switch to NS at 100 cc/h. If oral intake improves can discontinue fluids. Appreciate nephrology recommendations. Perdomo catheterization. Strict input output charting, daily weights. Appreciate urine lites, urine creatinine, urine eosinophil, urinalysis. CT on pelvis negative for obstructive nephropathy. 3. Hypotension: Maintain mean over 65. Hypotensive earlier in the day. Most likely in setting of dehydration. If not able to maintain can plan of Levophed depending on the goals of blood pressure. Continue to monitor blood pressures. 4. Acute hyperkalemia: Monitor every 12 hourly. Treatment according to goal of potassium around 4. 5. Uremia: Improving. 6. High anion gap metabolic acidosis: Resolved. 7. Hypertension: Goal blood pressure less than 140/90 mmHg. 8. Type 2 diabetes mellitus: Appreciate A1c. Will hold off on sliding scale. Hypoglycemia protocol. 9. Protein calorie malnutrition: 10. Dysphagia: 11. Aspiration into airway: Plan: CODE STATUS: Discussed in detail with the patient. Daughter and son-in-law will be the DPOA. Patient is agreeable to be full code for now. He would like to think further before making any decision for now. In case if needed he is also agreeable for dialysis. Famotidine for PUD prophylaxis Renal nondialysis diet. Heparin 5000 every 12 hourly for DVT prophylaxis 11/03/2024 Creatinine 1.3, potassium 3.4, lithium 1.5, phosphorus 3.1. WBC normal, hemoglobin 11.9, platelets 134. Reviewed CT abdomen/pelvis from admission no acute concerning abnormalities head CT negative for acute pathology chest x-ray shows no acute findings. Urine culture shows no growth. Blood cultures negative to date. Patient's mental status seems to be possibly at baseline with progression of dementia. Unsure of patient's baseline at home. Will call family. He is able to tell us that he has 3 kids. Currently has a sitter in place. Was started on Seroquel by admitting physician. Continue to monitor at this time. Check PT OT. 11/04/2024 Patient remains confused. This may be patient's new baseline. He may have delirium on underlying dementia. Possibility of underlying dementia. Consult neurology for input. Will discuss with family when they get here today. Continue Aricept and Seroquel. Blood cultures urine cultures negative to date. Creatinine is normalized at 1.2. Phosphorus 2.0. I will check MRI brain. 11/05/2024 seen this morning pt remains confused I was able to talk to the patient's daughter yesterday at bedside. She stated that patient was taking Prevagen at home. Since he lives alone they are unaware of noticing any major memory issues. She stated that he was mowing the lawn up until this hospitalization. We discussed multiple reasons of confusion altered mental status with possibility of underlying early dementia and hospital- acquired delirium versus metabolic encephalopathy secondary to GUS which is improving. MRI was done this morning, awaiting results Alzheimer's dementia workup has been ordered. Neurology recommendations appreciated. ? Continue Aricept ? Stop Seroquel at nighttime Add Zyprexa 2.5 twice daily. Patient will likely need fdc placement secondary to cognitive impairment He is unable to participate in [place] assessment or BIMS. Continue to monitor at this time. 11/06/2024 Patient remains confused. Has a fever 100.[address] chest abdomen pelvis, placed on broad-spectrum antibiotics linezolid and Zosyn We stopped Seroquel yesterday and continued Aricept. Placed on Zyprexa 2.5 twice daily. Check blood cultures, urine culture, sputum Gram stain culture. Patient does not have any neck stiffness. He is altered and does have a fever however my suspicion for meningitis is low at this time. Will await for imaging studies above for further management decisions. Continue to hospitalize patient at this time. Question of aspiration? Will check speech swallow evaluation Daughter updated at bedside. 11/07/2024 Overnight was febrile 101.6. Continues on it and Zosyn. Continue Aricept, Zyprexa Blood cultures urine culture negative to date. Does not have any neck stiffness. Discussed with family regarding potentially checking a lumbar puncture. It was attempted today however unable to obtain any spinal fluid secondary to patient spinal stenosis. CSF studies could not be done. Patient most likely aspirated. ? I discussed with patient's daughter that he has deconditioning and is weak and his intake is poor. He weighs 66 kg BMI is 19. He has severe protein calorie malnutrition. ? I suspect that his condition is partly because of weakness secondary to inadequate caloric intake. ? We will start PPN today and see if there is improvement in patient's weakness. If he continues to not eat feeding tube will need to be offered to the family at that point. ? Patient was seen by speech evaluation yesterday n.p.o. status was started. ? Earlier during the hospital course he was able to drink however has gotten weaker progressively. ? I will treat for aspiration pneumonia at this time based on clinical suspicion ? Continue IV fluids 30 cc/h. Will need to watch closely for fluid overload. ? Patient was seen twice today. Went back to visit him around 4:30 PM. He was awake and talking. However he told me he was tired and wanted to sleep. He was still somewhat confused however was able to tell me his name and date of . 11/08/2024 Afebrile overnight On 2 L nasal cannula. Likely secondary to aspiration pneumonia. Continue on PPN at this time. Patient more awake alert today. Encourage oral feeding. However patient's oral intake remains poor, feeding tube will have to be discussed with the family. Continue to work with speech therapy. Continue IV fluids at 30 cc/h. Patient appears better than prior day however remains confused. PDMP PDMP Reviewed: Not Reviewed Attestations 2 Medical Necessity Statement*: Dysphagia, safe discharge planning Aspiration pneumonia On PPN at this time. Diagnoses Encephalopathy G93.40 Renal failure N19 Hypotension I95.9 Acute hyperkalemia E87.5 Uremia N19 High anion gap metabolic acidosis E87.29 Hypertension I10 Type 2 diabetes mellitus E11.9 Protein calorie malnutrition E46 Dysphagia R13.10 Aspiration into airway T17.908A
[2024-11-08] MEDS: erythromycin Op Oint 1 gm 1 APPLIC EYE-BOTH ×4 (10:00→21:22)
--- NOTE | 2024-11-08 13:29 | PC.SLP ---
[employer] visit attempted but going to CT
--- NOTE | 2024-11-08 16:57 | P.PN_ITS ---
Subjective 2 Subjective: no new c/o Medications: Reviewed: Yes Vitals/I&O/Wt Last Vital Signs Temp 97.8 F 11/08/24 16:39 Pulse 84 11/08/24 16:39 Resp 17 11/08/24 16:39 BP 117/68 11/08/24 16:39 Pulse Ox 95 11/08/24 16:39 O2 Del Method Nasal Cannula 11/08/24 16:39 O2 Flow Rate 2 11/08/24 04:00 11/08/24 11/08/24 11/08/24 06:59 14:59 22:59 Intake Total 521.35 / 2587.633 546.917 / 546.917 473.783 / 1020.700 Output Total 550 / 1150 Balance -28.65 / 1437.633 546.917 / 546.917 473.783 / 1020.700 Weight last 48 hrs Weight 69.218 kg Weight 66.224 kg Physical Exam 2 Narrative: Elderly man, ill-appearing, cachectic in bed no apparent distress. vs noted heent- nc/at eomi neck supple lungs clear heart regular abd soft + bs ext no edema Urinary Catheter Management: Perdomo: Cath Placed During This Visit: yes Reason for Continuing Indwelling Catheter: Accurate Measurement of Urinary Output in Critically Ill Patients Urinary Catheter Date of Insertion: 11/01/24 Urinary Catheter Time of Insertion: 00:01 Data 11/08/24 01:38 11/08/24 01:38 Micro: Microbiology 11/06/24 18:23 Urine Culture - Final Urine,Voided 11/06/24 11:54 Blood Culture - Preliminary Blood NEGATIVE TO DATE 11/06/24 11:52 Blood Culture - Preliminary Blood NEGATIVE TO DATE A&P Assessment and plan 1. GUS (acute kidney injury): 1. Acute kidney injury: Associated with severe hyperkalemia and metabolic acidosis, likely prerenal etiology. Please also note patient has history of a partial nephrectomy. Continue to hold off on nephrotoxic medications. CT scan does not show any obstruction. Please follow-up serologies. So far negative. -on IVFs 2. History of hypertension holding lisinopril. Blood pressure on low side 3. History of diabetes hold, holding metformin 4. Patient has any increased anion gap metabolic acidosis again. Magnesium phosphorus and potassium appear to be improving. Patient needs nutrition. Check ABG consider limiting meds that may affect his mental status Patient evaluated using audiovisual cart. Time spent 30 minutes Plan: see above PDMP PDMP Reviewed: Not Reviewed Attestations 2 Medical Necessity Statement*: per callie Coding Level of Care Code Acute Code for Chg Fwd Diagnoses GUS (acute kidney injury) N17.9
[2024-11-08] MEDS: multivitamin inj 10 ML in AA-Dex 4.25%-5% w/Lytes 1,000 ML 63 ML IV (18:06)
[2024-11-09] VITALS (7 sets, daily range): BP systolic 113–136; BP diastolic 68–83; PULSE 84–95; RESP 17–20; TEMP 36.3–37.1; O2SAT 93–98
[2024-11-09] MEDS: linezolid premix 600 MG/300 ML PREMIX 300 MG IV ×2 (01:38→13:11)
[2024-11-09] MEDS: piperacillin-tazobactam 3.375 GM in sodium chloride 0.9% (plus) 50 ML IV ×3 (05:06→19:56)
[2024-11-09] MEDS: dorzolamide/timolol Op Soln 10 mL Btl 1 DROP EYE-RIGHT ×2 (05:16→17:10)
[2024-11-09] MEDS: multivitamin inj 10 ML in AA-Dex 4.25%-5% w/Lytes 1,000 ML 83 ML IV ×2 (05:23→18:03)
[2024-11-09 05:28] LABS: Alanine Aminotransferase 12 U/L (0-41); Albumin Level 2.6 g/dL (3.5-5.2); Alkaline Phosphatase 48 U/L (40-130); Anion Gap 13.7 (5-19); Aspartate Amino Transferase 22 U/L (0-40); Blood Urea Nitrogen 34 mg/dL (8-23); Calcium 8.3 mg/dL (8.5-10.5); Carbon Dioxide 23 mmol/L (22-29); Chloride 105 mmol/L (98-107); Creatinine Clr Calc Pharmacy 39.0387; Globulin 2.5 g/dL (1.3-4.6); Glucose 202 mg/dL (65-115); Magnesium 1.8 mg/dL (1.7-2.3); Osmolality Calculated 299 mOsm/kg (285-295); Potassium 3.7 mmol/L (3.5-5.1); Sodium 138 mmol/L (136-145); Total Protein 5.1 g/dL (6.6-8.7)
[2024-11-09] MEDS: erythromycin Op Oint 1 gm 1 APPLIC EYE-BOTH ×4 (09:06→20:02)
--- NOTE | 2024-11-09 13:32 | PM.PN ---
Subjective Subjective: oral intake poor Medications: Reviewed: Yes Vitals/I&O/Wt Last Vital Signs Temp 98.0 F 11/09/24 11:16 Pulse 92 11/09/24 11:16 Resp 17 11/09/24 11:16 BP 113/70 11/09/24 11:16 Pulse Ox 97 11/09/24 11:16 O2 Del Method Nasal Cannula 11/09/24 11:16 O2 Flow Rate 3 11/09/24 08:42 11/08/24 11/09/24 11/09/24 22:59 06:59 14:59 Intake Total 643.783 / 2435.904 2806.850 / 2411.550 170 / 170 Output Total 300 / 300 200 / 500 200 / 200 Balance 343.783 / 809.509 4520.850 / 1911.550 -30 / -30 Weight last 48 hrs Weight 70.392 kg Weight 69.218 kg Physical Exam Narrative: Elderly man,, cachectic in bed no apparent distress. vs noted heent- nc/at eomi neck supple lungs clear heart regular abd soft + bs ext no edema Urinary Catheter Management: Perdomo: Cath Placed During This Visit: yes Reason for Continuing Indwelling Catheter: Other Urinary Catheter Date of Insertion: 11/01/24 Urinary Catheter Time of Insertion: 00:01 Data 11/08/24 01:38 11/09/24 05:03 Micro: Microbiology 11/06/24 18:23 Urine Culture - Final Urine,Voided A&P Assessment and plan 1. GUS (acute kidney injury): 1. Acute kidney injury: Associated with severe hyperkalemia and metabolic acidosis, likely prerenal etiology. Please also note patient has history of a partial nephrectomy. Continue to hold off on nephrotoxic medications. CT scan does not show any obstruction. Please follow-up serologies. So far negative. -on maintenence IVFs 2. History of hypertension holding lisinopril. Blood pressure on low side 3. History of diabetes hold, holding metformin 4. Patient has any increased anion gap metabolic acidosis again. Patient evaluated using audiovisual cart. Time spent 30 minutes Plan: see above PDMP PDMP Reviewed: Not Reviewed Attestations Medical Necessity Statement*: per [facility] Coding Level of Care Code Acute Code for [facility] Fwd Diagnoses GUS (acute kidney injury) N17.9
--- NOTE | 2024-11-09 18:25 | P.PN_ITS ---
Subjective 2 Subjective: Patient is not significantly improving with oral intake, this is a limited rate limiting step for patient to transition to another phase of care in preparation to go to rehab to get strength down to baseline Medications: Reviewed: Yes Vitals/I&O/Wt Last Vital Signs Temp 97.6 F 11/09/24 15:37 Pulse 89 11/09/24 15:37 Resp 17 11/09/24 15:37 BP 136/68 11/09/24 15:37 Pulse Ox 98 11/09/24 15:37 O2 Del Method Nasal Cannula 11/09/24 15:37 O2 Flow Rate 3 11/09/24 08:42 11/09/24 11/09/24 11/09/24 06:59 14:59 22:59 Intake Total 1220.850 / 2411.550 470 / 470 1060 / 1530 Output Total 200 / 500 200 / 200 300 / 500 Balance 1020.850 / 1911.550 270 / 270 760 / 1030 Weight last 48 hrs Weight 70.392 kg Weight 69.218 kg Physical Exam 2 Narrative: Patient is weak not eating much and nutrition been supported Encephalopathy improving patient able to answer questions even with eyes closed He is not confused at the time of my evaluation today with the bedside nurse HEENT normocephalic atraumatic neck neck is supple cardiovascular heart rate is regular lungs are pretty much clear abdomen soft nontender nondistended unremarkable extremities intact with trace 1 edema Urinary Catheter Management: Perdomo: Cath Placed During This Visit: yes Reason for Continuing Indwelling Catheter: Other Urinary Catheter Date of Insertion: 11/01/24 Urinary Catheter Time of Insertion: 00:01 Data 11/08/24 01:38 11/09/24 05:03 A&P Assessment and plan 1. Aspiration into airway: This is due to dysphagia Continue to monitor on dysphagia diet 2. Dysphagia: Speech following up with dysphagia Monitor patient through feeding 3. Protein calorie malnutrition: Goal is to get calorie on this patient that has decreased oral intake Continue to optimize 4. GUS (acute kidney injury): Monitor for interval improvement in renal function Continue to keep patient euvolemic Avoid nephrotoxic medication such as metformin, lisinopril, 5. Type 2 diabetes mellitus: Keep patient euglycemic 6. Encephalopathy: Encephalopathy to improve would be quite encouraging 7. Dehydration: Continue to keep patient euvolemic as the goal 8. Urinary tract infection: Doing well with urinary tract infection treatment 9. Acute hyperkalemia: Treated for hyperkalemia now with normal potassium of 3.7 Plan: GI and DVT prophylaxis in place Increase oral intake and hopefully send patient for rehabilitation within 48 hours from now PDMP PDMP Reviewed: Last Reviewed 11/09/24 18:35 by Bernie Dozier MD Attestations 2 Medical Necessity Statement*: Patient needs continuous care to further optimize acute renal injury, not eating we will have to further support prior to discharge forl within the next 72 hours Coding Level of Care Code 06577 Diagnoses Aspiration into airway T17.908A Dysphagia R13.10 Protein calorie malnutrition E46 GUS (acute kidney injury) N17.9 Type 2 diabetes mellitus E11.9 Encephalopathy G93.40 Dehydration E86.0 Urinary tract infection N39.0 Acute hyperkalemia E87.5 Time Spent (min) 35
[2024-11-10] MEDS: linezolid premix 600 MG/300 ML PREMIX 300 MG IV ×2 (02:31→14:03)
[2024-11-10 04:00] VITALS: BP 126/72; PULSE 87; RESP 22; TEMP 36.6; O2SAT 95
[2024-11-10] MEDS: piperacillin-tazobactam 3.375 GM in sodium chloride 0.9% (plus) 50 ML IV ×3 (05:06→22:26)
[2024-11-10] MEDS: dorzolamide/timolol Op Soln 10 mL Btl 1 DROP EYE-RIGHT (05:10)
[2024-11-10 06:00] VITALS: PULSE 91
[2024-11-10] MEDS: multivitamin inj 10 ML in AA-Dex 4.25%-5% w/Lytes 1,000 ML 83 ML IV ×2 (06:15→18:51)
--- NOTE | 2024-11-10 07:22 | P.PN_ITS ---
Subjective 2 Subjective: no new complaints Continues to have poor p.o. intake Medications: Reviewed: Yes Vitals/I&O/Wt Last Vital Signs Temp 97.8 F 11/10/24 04:00 Pulse 91 11/10/24 06:00 Resp 22 H 11/10/24 04:00 BP 126/72 11/10/24 04:00 Pulse Ox 95 11/10/24 04:00 O2 Del Method Nasal Cannula 11/10/24 04:00 O2 Flow Rate 2.5 11/10/24 04:00 11/09/24 11/10/24 11/10/24 22:59 06:59 14:59 Intake Total 1760 / 2230 1360 / 3590 Output Total 300 / 500 300 / 800 Balance 1460 / 1730 1060 / 2790 Weight last 48 hrs Weight 71.894 kg Weight 70.392 kg Physical Exam 2 Narrative: Elderly man,, cachectic in bed no apparent distress. vs noted heent- nc/at eomi neck supple lungs clear heart regular abd soft + bs ext no edema Urinary Catheter Management: Perdomo: Cath Placed During This Visit: yes Reason for Continuing Indwelling Catheter: Other Urinary Catheter Date of Insertion: 11/01/24 Urinary Catheter Time of Insertion: 00:01 Data 11/08/24 01:38 11/09/24 05:03 A&P Assessment and plan 1. GUS (acute kidney injury): 1. Acute kidney injury: Associated with severe hyperkalemia and metabolic acidosis, likely prerenal etiology. Please also note patient has history of a partial nephrectomy. CT scan does not show any obstruction. Please follow-up serologies. So far negative. -on maintenence IVFs - Cr stable -BMP pending today 2. History of hypertension holding lisinopril. Blood pressure on low side 3. History of diabetes hold, holding metformin 4. Dysphagia Patient evaluated using audiovisual cart. Time spent 30 minutes Plan: see above PDMP PDMP Reviewed: Not Reviewed Attestations 2 Medical Necessity Statement*: per ibrahimaut Coding Level of Care Code Acute Code for [facility] Diagnoses GUS (acute kidney injury) N17.9
[2024-11-10 08:08] VITALS: BP 127/71; PULSE 83; RESP 16; TEMP 36.7; O2SAT 95
--- NOTE | 2024-11-10 08:08 | PC.SOCIAL ---
IMM Update Pg. 2 of IMM updated and reviewed with patient, who verbalized understanding. Copy provided.
[2024-11-10] MEDS: erythromycin Op Oint 1 gm 1 APPLIC EYE-BOTH ×3 (08:19→20:13)
[2024-11-10 11:43] VITALS: BP 137/71; PULSE 93; RESP 16; TEMP 36.6; O2SAT 97
[2024-11-10 15:47] VITALS: BP 122/72; PULSE 93; RESP 18; TEMP 36.6; O2SAT 95
--- NOTE | 2024-11-10 16:38 | P.PN_ITS ---
Subjective 2 Subjective: Patient is more awake today with eyes open looking forward to patient sitting up in the chair participating in feeding self this will be practiced today looking forward to a discharge to skilled care facility for rehab PT OT once patient is medically able to do so Medications: Reviewed: Yes Vitals/I&O/Wt Last Vital Signs Temp 97.9 F 11/10/24 15:47 Pulse 93 11/10/24 15:47 Resp 18 11/10/24 15:47 BP 122/72 11/10/24 15:47 Pulse Ox 95 11/10/24 15:47 O2 Del Method Nasal Cannula 11/10/24 11:43 O2 Flow Rate 2.5 11/10/24 04:00 11/10/24 11/10/24 11/10/24 06:59 14:59 22:59 Intake Total 1360 / 3590 406.9 / 406.9 300 / 706.9 Output Total 300 / 800 Balance 1060 / 2790 406.9 / 406.9 300 / 706.9 Weight last 48 hrs Weight 71.894 kg Weight 70.392 kg Physical Exam 2 Narrative: Patient is less lethargic today but not able to fully be awake to feed self. Patient took only 2 bites of meal and not enough to feed HEENT normocephalic/atraumatic neck neck is supple cardiovascular heart rate is regular lungs are clear abdomen soft nontender nondistended unremarkable extremities are intact no edema has good pulses neurology has no focality lab studies lab studies reviewed and noted. Urinary Catheter Management: Perdomo: Cath Placed During This Visit: yes Reason for Continuing Indwelling Catheter: Other Urinary Catheter Date of Insertion: 11/01/24 Urinary Catheter Time of Insertion: 00:01 Data 11/08/24 01:38 11/09/24 05:03 A&P Assessment and plan 1. GUS (acute kidney injury): Acute renal injury Will continue to follow through and optimize Avoid any nephrotoxin 2. Encephalopathy: Patient with profound metabolic encephalopathy With critical illness myopathy Continue to monitor. Culprit of acute renal injury leading to metabolic encephalopathy Continue to follow through chemistry and optimize Patient to follow through with care Out of bed to chair PT OT to follow through with this patient to get stronger to where he can feed self. Goal is if patient can eat 40 to 50% of meal to begin with and that will be wonderful. Patient was out of bed to chair today for 2 hours but did not do well and roll was sliding almost off the chair Could not assist in feeding self and will not actually eat much. - Will check electrolytes and optimize accordingly Bedside PT OT 3. 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 Culprit of acute renal injury leading to metabolic encephalopathy Continue to follow through chemistry and optimize Patient to follow through with care Out of bed to chair PT OT to follow through with this patient to get stronger to where he can feed self. Goal is if patient can eat 40 to 50% of meal to begin with and that will be wonderful. Patient was out of bed to chair today for 2 hours but did not do well and roll was sliding almost off the chair Could not assist in feeding self and will not actually eat much. - Will check electrolytes and optimize accordingly Bedside PT OT Plan: GI and DVT prophylaxis in place PDMP PDMP Reviewed: Last Reviewed 11/09/24 18:35 by Bernie Dozier MD Attestations 2 Medical Necessity Statement*: Patient continues to need optimal care patient cannot get out of bed without help patient cannot sit in the chair without sliding of the chair because of severe myopathy. Patient is not feeding self no oral intake much even with assistance. Must continue to monitor this with bedside PT good hydration via PPN and why we are trying to get him transition to feeding self. Goal at the time of discharge will be rehab. If not rehab will be senior living rehab Coding Level of Care Code Acute Code for Chg Fwd Diagnoses GUS (acute kidney injury) N17.9 Encephalopathy G93.40 Dehydration E86.0 Critical illness myopathy G72.81
[2024-11-10 19:35] VITALS: BP 120/69; PULSE 89; RESP 20; TEMP 36.4; O2SAT 100
--- NOTE | 2024-11-10 19:41 | P.PN_ITS ---
Subjective 2 Subjective: Patient is normal today and very interactive Case discussed with the family family outlining Vitals/I&O/Wt Last Vital Signs Temp 97.6 F 11/10/24 19:35 Pulse 89 11/10/24 19:35 Resp 20 H 11/10/24 19:35 BP 120/69 11/10/24 19:35 Pulse Ox 100 11/10/24 19:35 O2 Del Method Nasal Cannula 11/10/24 19:35 O2 Flow Rate 2.5 11/10/24 19:35 11/10/24 11/10/24 11/10/24 06:59 14:59 22:59 Intake Total 1360 / 3590 406.9 / 406.9 350 / 756.9 Output Total 300 / 800 800 / 800 Balance 1060 / 2790 406.9 / 406.9 -450 / -43.1 Weight last 48 hrs Weight 71.894 kg Weight 70.392 kg Physical Exam 2 Urinary Catheter Management: Perdomo: Cath Placed During This Visit: yes Reason for Continuing Indwelling Catheter: Acute Urinary Retention or Obstruction Urinary Catheter Date of Insertion: 11/01/24 Urinary Catheter Time of Insertion: 00:01 Data 11/08/24 01:38 11/13/24 04:48 A&P PDMP PDMP Reviewed: Last Reviewed 11/13/24 15:42 by Bernie Dozier MD Coding Level of Care Code Acute Code for Chg Fwd
[2024-11-11] VITALS (9 sets, daily range): BP systolic 112–135; BP diastolic 64–86; PULSE 90–108; RESP 12–23; TEMP 36.4–37.7; O2SAT 91–99
[2024-11-11] MEDS: linezolid premix 600 MG/300 ML PREMIX 300 MG IV ×2 (01:42→13:16)
[2024-11-11] MEDS: dorzolamide/timolol Op Soln 10 mL Btl 1 DROP EYE-RIGHT ×2 (05:04→16:42)
[2024-11-11] MEDS: piperacillin-tazobactam 3.375 GM in sodium chloride 0.9% (plus) 50 ML IV ×3 (05:11→20:30)
[2024-11-11] MEDS: multivitamin inj 10 ML in AA-Dex 4.25%-5% w/Lytes 1,000 ML 83 ML IV ×2 (07:45→19:32)
[2024-11-11] MEDS: erythromycin Op Oint 1 gm 1 APPLIC EYE-BOTH ×4 (08:01→20:37)
[2024-11-11 12:50] LABS: Blood Urea Nitrogen 39 mg/dL (8-23); Calcium 8.2 mg/dL (8.5-10.5); Carbon Dioxide 16 mmol/L (22-29); Chloride 101 mmol/L (98-107); Creatinine Clr Calc Pharmacy 46.7362; Glucose 200 mg/dL (65-115); Osmolality Calculated 291 mOsm/kg (285-295); Sodium 133 mmol/L (136-145)
[2024-11-11 12:54] LABS: Anion Gap 20.4 (5-19); Potassium 4.4 mmol/L (3.5-5.1)
--- NOTE | 2024-11-11 14:06 | P.PN_ITS ---
Subjective 2 Subjective: lethargic , on tpn Poor PO intake Medications: Reviewed: Yes Vitals/I&O/Wt Last Vital Signs Temp 98 F 11/11/24 12:02 Pulse 90 11/11/24 12:02 Resp 17 11/11/24 12:02 BP 119/72 11/11/24 12:02 Pulse Ox 91 11/11/24 12:02 O2 Del Method Nasal Cannula 11/11/24 12:02 O2 Flow Rate 3 11/11/24 08:00 11/10/24 11/11/24 11/11/24 22:59 06:59 14:59 Intake Total 350 / 756.9 2275 / 3031.9 50 / 50 Output Total 900 / 900 300 / 1200 Balance -550 / -143.1 1975 / 1831.9 50 / 50 Weight last 48 hrs Weight 74.072 kg Weight 71.894 kg Physical Exam 2 Narrative: Elderly man,, cachectic in bed no apparent distress. vs noted heent- nc/at eomi neck supple lungs clear heart regular abd soft + bs ext no edema Urinary Catheter Management: Perdomo: Cath Placed During This Visit: yes Reason for Continuing Indwelling Catheter: Acute Urinary Retention or Obstruction Urinary Catheter Date of Insertion: 11/01/24 Urinary Catheter Time of Insertion: 00:01 Data 11/08/24 01:38 11/11/24 10:41 Micro: Microbiology 11/06/24 11:54 Blood Culture - Final Blood NO GROWTH AFTER 5 DAYS 11/06/24 11:52 Blood Culture - Final Blood NO GROWTH AFTER 5 DAYS A&P Assessment and plan 1. GUS (acute kidney injury): 1. Acute kidney injury: Associated with severe hyperkalemia and metabolic acidosis, likely prerenal etiology. Please also note patient has history of a partial nephrectomy. CT scan does not show any obstruction. Please follow-up serologies. So far negative. -on maintenence IVFs - switched to bicarb drip - Cr stable 2. History of hypertension holding lisinopril. Blood pressure on low side 3. History of diabetes hold, holding metformin 4. Dysphagia 5. Metabolic acidosis , switched IVFs to bicarb drip Patient evaluated using audiovisual cart. Time spent 30 minutes Plan: see above PDMP PDMP Reviewed: Not Reviewed Attestations 2 Medical Necessity Statement*: per medicne Coding Level of Care Code Acute Code for Chg Fwd Diagnoses GUS (acute kidney injury) N17.9
--- NOTE | 2024-11-11 14:08 | PC.OT ---
Attempted skilled OT session. Pt too lethargic. Pt closes his eyes does not re-open them to verbal/tactile stimuli.
--- NOTE | 2024-11-11 14:50 | PC.SLP ---
TEA TASTER attempted to work with the patient, however, patient was not alert enough at the time of attempt.
[2024-11-11 15:58] LABS: Apolipoprotein E (ApoE) Isofor E3/E3
--- NOTE | 2024-11-11 16:38 | P.PN_ITS ---
Subjective 2 Subjective: Patient is status quo however was able to open eyes and look at me but very debilitated. Aggressive physical therapy as tolerated while we are allowing and assisting patient to be able to increase oral intake prior to discharge all things being equal we will patient in the next 3 days for discharge Vitals/I&O/Wt Last Vital Signs Temp 98.2 F 11/11/24 15:44 Pulse 100 11/11/24 15:44 Resp 16 11/11/24 15:44 BP 122/71 11/11/24 15:44 Pulse Ox 96 11/11/24 15:44 O2 Del Method Nasal Cannula 11/11/24 15:44 O2 Flow Rate 3 11/11/24 08:00 11/11/24 11/11/24 11/11/24 06:59 14:59 22:59 Intake Total 2275 / 3031.9 730 / 730 Output Total 300 / 1200 Balance 1975 / 1831.9 730 / 730 Weight last 48 hrs Weight 74.072 kg Weight 71.894 kg Physical Exam 2 Narrative: Patient is weak appearing and will respond to questions. HEENT normocephalic atraumatic neck neck is supple cardiovascular heart rate is regular lungs are pretty much clear abdomen soft nontender nondistended unremarkable extremities intact no edema has lost pulses neurology has no focality lab studies lab studies reviewed and noted. Urinary Catheter Management: Perdomo: Cath Placed During This Visit: yes Reason for Continuing Indwelling Catheter: Acute Urinary Retention or Obstruction Urinary Catheter Date of Insertion: 11/01/24 Urinary Catheter Time of Insertion: 00:01 Data 11/08/24 01:38 11/11/24 10:41 Micro: Microbiology 11/06/24 11:54 Blood Culture - Final Blood NO GROWTH AFTER 5 DAYS 11/06/24 11:52 Blood Culture - Final Blood NO GROWTH AFTER 5 DAYS A&P Assessment and plan 1. Critical illness myopathy: 2. Aspiration into airway: 3. Dysphagia: 4. Protein calorie malnutrition: 5. Hypotension: 6. GUS (acute kidney injury): 7. High anion gap metabolic acidosis: 8. Type 2 diabetes mellitus: 9. Hypertension: 10. Encephalopathy: 11. Uremia: Plan: Assessment and plan 1. GUS (acute kidney injury): Acute renal injury Will continue to follow through and optimize Avoid any nephrotoxin 2. Encephalopathy: Patient with profound metabolic encephalopathy With critical illness myopathy Continue to monitor. Culprit of acute renal injury leading to metabolic encephalopathy Continue to follow through chemistry and optimize Patient to follow through with care Out of bed to chair PT OT to follow through with this patient to get stronger to where he can feed self. Goal is if patient can eat 40 to 50% of meal to begin with and that will be wonderful. Patient was out of bed to chair today for 2 hours but did not do well and roll was sliding almost off the chair Could not assist in feeding self and will not actually eat much. - Will check electrolytes and optimize accordingly Bedside PT OT 3. 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 Culprit of acute renal injury leading to metabolic encephalopathy Continue to follow through chemistry and optimize Patient to follow through with care Out of bed to chair PT OT to follow through with this patient to get stronger to where he can feed self. Goal is if patient can eat 40 to 50% of meal to begin with and that will be wonderful. Patient was out of bed to chair today for 2 hours but did not do well and roll was sliding almost off the chair Could not assist in feeding self and will not actually eat much. - Will check electrolytes and optimize accordingly Bedside PT OT Plan: GI and DVT prophylaxis in place PDMP PDMP Reviewed: Last Reviewed 11/09/24 18:35 by Bernie Dozier MD PDMP PDMP Reviewed: Last Reviewed 11/11/24 16:46 by Bernie Dozier MD Attestations 2 Medical Necessity Statement*: Patient requiring more days for care of critical illness myopathy and to increase oral intake for a safer discharge Coding Level of Care Code 88844 Diagnoses Critical illness myopathy G72.81 Aspiration into airway T17.908A Dysphagia R13.10 Protein calorie malnutrition E46 Hypotension I95.9 GUS (acute kidney injury) N17.9 High anion gap metabolic acidosis E87.29 Type 2 diabetes mellitus E11.9 Hypertension I10 Encephalopathy G93.40 Uremia N19
--- NOTE | 2024-11-11 22:39 | XRR_ITS ---
PROCEDURE INFORMATION: Exam: XR Chest Exam date and time: 11/11/2024 10:43 PM Age: 89 years old Clinical indication: Other: Fluid on lungs; Additional info: Assess pulmonary edema TECHNIQUE: Imaging protocol: Radiologic exam of the chest. Views: 1 view. COMPARISON: CT chest abdpel [id number] 11/06/2024 12:05 PM FINDINGS: Lungs: Increased pulmonary vascular distension. Dense retrocardiac opacities. Pleural spaces: Small bilateral pleural effusions. Heart/Mediastinum: Cardiomegaly. Bones/joints: Unremarkable. XR/XR chest 1V portable [id number] IMPRESSION: 1. Cardiomegaly, small bilateral pleural effusions and pulmonary vascular distension, consistent with changes of volume overload. 2. Dense left retrocardiac opacity which may represent atelectasis, pleural effusion or focal consolidation.
--- NOTE | 2024-11-11 22:48 | PC.NURSE ---
ivf stopped at 22:49
--- NOTE | 2024-11-11 22:50 | PC.NURSE ---
Contacted Rachel about patient being minimally responsive increasingly past 48 hours. He had come in with confusion, not been awake much needing stimulation for crushed meds in pudding taken very slowly. has PPN running at 83ml/h bicarb fluids at 60ml/h and zyosin. no history of CHF on record that I seen. his output for dayshift was 600ml. telnepholgy on for acute renal failure. patient on 3L NC. vitals BP 193/49 HR 108 resp 30 temp 98.0 O2 94% Doctor said to hold bicarb and lower PPN 42ml/h. chest x-ray ordered.
[2024-11-12] VITALS (7 sets, daily range): BP systolic 97–151; BP diastolic 60–102; PULSE 67–100; RESP 17–24; TEMP 36.6–36.8; O2SAT 94–100
[2024-11-12] MEDS: linezolid premix 600 MG/300 ML PREMIX 300 MG IV ×2 (01:35→13:28)
[2024-11-12] MEDS: FUROsemide 10 mg/mL SDV 10mL 20 MG IVP (02:16)
--- NOTE | 2024-11-12 03:33 | PC.NURSE ---
arm has been edemas and tender been checking getting blood return and flushing arm is now getting warm assessment on going
[2024-11-12] MEDS: piperacillin-tazobactam 3.375 GM in sodium chloride 0.9% (plus) 50 ML IV ×3 (05:46→21:33)
[2024-11-12] MEDS: dorzolamide/timolol Op Soln 10 mL Btl 1 DROP EYE-RIGHT ×2 (05:50→17:46)
[2024-11-12 06:31] LABS: Alanine Aminotransferase 24 U/L (0-41); Albumin Level 2.7 g/dL (3.5-5.2); Alkaline Phosphatase 56 U/L (40-130); Anion Gap 14.0 (5-19); Aspartate Amino Transferase 31 U/L (0-40); Blood Urea Nitrogen 43 mg/dL (8-23); Calcium 8.0 mg/dL (8.5-10.5); Carbon Dioxide 25 mmol/L (22-29); Chloride 101 mmol/L (98-107); Creatinine Clr Calc Pharmacy 40.2598; Globulin 2.5 g/dL (1.3-4.6); Glucose 189 mg/dL (65-115); Osmolality Calculated 298 mOsm/kg (285-295); Potassium 4.0 mmol/L (3.5-5.1); Sodium 136 mmol/L (136-145); Total Protein 5.2 g/dL (6.6-8.7)
[2024-11-12 06:59] LABS: NT Pro B Type Natriuretic Pept 69490 pg/mL (0-450)
--- NOTE | 2024-11-12 08:15 | USCV_ITS ---
Vladimir Salgado Age: 89 Gender: M : 1935 Exam Date: 11/12/2024 19:41 Ordering Phys: Bernie Dozier MD Technologist: JACQUELINE Exam Location: [facility] [place] Indication: chf, HTN, DM weakness, confusion. Patient is unresponsive and incoherent in 252-2 BP: 97 / 77 HR: 77 Rhythm: Sinus Technical Quality: Adequate MEASUREMENTS (Male / Female) Normal Values 2D ECHO LV Diastolic Diameter PLAX 3.9 cm 4.2 - 5.9 / 3.9 - 5.3 cm IVS Diastolic Thickness 1.5 cm 0.6 - 1.0 / 0.6 - 0.9 cm IVS Systolic Thickness 2.0 cm LVPW Diastolic Thickness 1.1 cm 0.6 - 1.0 / 0.6 - 0.9 cm LVPW Systolic Thickness 1.5 cm LVOT Diameter 2.0 cm LV Ejection Fraction 2D Teich 36.9 % LV Ejection Fraction MOD 4C 38.8 % LV Ejection Fraction MOD 2C 17.5 % LV Ejection Fraction 2C AL 16.8 % LA Diameter 3.4 cm Aorta at Sinotubular Diameter 3.3 cm IVC Diameter 1.9 cm M-MODE LA Ao Ratio MM 1.1 AV Cusp Separation MM 0.8 cm DOPPLER AV Peak Velocity 146.0 cm/s LVOT Peak Velocity 72.0 cm/s AV Area Cont Eq vti 1.4 cm squared AV Area Cont Eq pk 1.6 cm squared MV Peak Velocity 92.0 cm/s MV Area PHT 3.5 cm squared Mitral E to A Ratio 0.8 TR Peak Velocity 189.0 cm/s TR Peak Gradient 14.3 mmHg TV Peak E Velocity 25.0 cm/s PV Peak Velocity 53.0 cm/s FINDINGS Left Ventricle Normal LV size. Moderately reduced LV systolic function, EF 37%. There is akinesis of all apical and mid myocardial segments with hyperdynamic basal segments possibly due to stress induced cardiomyopathy, however ischemic cardiomyopathy cannot be ruled out. Medium sized, non-mobile apical thrombus. Moderate septal LV hypertrophy (1.5 cm) and mild hypertrophy of the posterior wall (1.1 cm). Right Ventricle Normal cavity size of the right ventricle. Moderate hypokinesis of the right ventricle. Right Atrium Normal right atrial size. Left Atrium Mild left atrial enlargement. Mitral Valve Mild mitral valve leaflet thickening. Mild mitral annular calcification. No mitral valve stenosis or regurgitation. Aortic Valve Aortic valve not well visualized. There is mild aortic valve calcification. The aortic valve appears functionally bicuspid. There is mild aortic valve stenosis (HAROLDO 1.6 cm2 by planimetery in short axis view). No aortic valve reugurgitation. Tricuspid Valve Normal structure and function of tricuspid valve. Pulmonary systolic pressure cannot be assessed due to lack of TR jet. Pulmonic Valve Normal pulmonic valve structure and function. Pericardium Very small circumferential pericardial effusion. Aorta Normal size of aortic root and ascending aorta IVC Normal IVC size. Other findings: Large left pleural effusion. CONCLUSIONS 1. Moderate LV systolic dysfunction with EF 37% with segmental wall motion abnormality. 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 2. Apical LV thrombus 3. Mild aortic valve stenosis. 4. Moderate hypokinesis of the right ventricle. 5. Large left pleural effusion. Aaron Goodson (Electronically Signed) Final Date: 13 November 2024 17:34 S
[2024-11-12] MEDS: multivitamin inj 10 ML in AA-Dex 4.25%-5% w/Lytes 1,000 ML 42 ML IV (08:20)
[2024-11-12] MEDS: erythromycin Op Oint 1 gm 1 APPLIC EYE-BOTH (08:21)
--- NOTE | 2024-11-12 09:52 | PM.CONSULT ---
Documented by User: MAGDA Vick 11/12/24 13:18 Providers/Reason For Consult Consulting Physician/Specialty*: Dr Goodson, cardiology Reason for Consult*: volume overload, elevated BNP Requesting Physician: Bernie Dozier MD Attending Physician: Bernie Dozier MD History of Present Illness History of Present Illness Vladimir Salgado is a 89 year old male with past medical history of hypertension, diabetes, colon cancer with partial resection, partial nephrectomy and no known past medical history of coronary disease or congestive heart failure. He presented to the emergency room 10/31/2024 with confusion, found to be in renal failure. His hospitalization has been prolonged, with consultation with nephrology and neurology. Renal function improved with IV fluids, was 6.8 on admission now down to 1.4. He was started on PPN, but is also taking in oral intake. He is very deconditioned. CT of the chest abdomen pelvis obtained 11/06/2024 revealed small bilateral pleural effusions, chest x-ray obtained yesterday shows the same. BNP this morning was over 69,000, fluid balance is +1278 for the last 24 hours, +21 L cumulative this admission. Echocardiogram has been ordered. He does not take any cardiac medications at home. Currently on 2 L oxygen, he was not previously on oxygen. Review of Systems Const: Denies: fever(s), chills, change in weight, fatigue or diaphoresis Eyes: Denies: change in vision ENMT: Denies: epistaxis Card: Denies: chest pain, edema, syncope, pre-syncope, dyspnea on exertion or orthopnea Resp: Denies: dyspnea, productive cough or wheezing GI: Denies: nausea, vomiting, hematemesis, hematochezia or melena : Denies: hematuria Musc: Denies: extremity swelling [place]/Lymph: Denies: easy bruising or easy bleeding Medications/Allergies Home Medications ?Medication ?Instructions ?Recorded ?Confirmed ?Last Taken ?Type allopurinol 300 mg tablet 300 mg PO DAILY 11/01/24 11/01/24 10/31/24 History amlodipine 5 mg tablet 5 mg PO DAILY 11/01/24 11/01/24 10/31/24 History dorzolamide 22.3 mg-timolol 6.8 1 drp ophthalmic (eye) BID 11/01/24 11/01/24 10/31/24 History mg/mL eye drops lisinopril 40 mg tablet 40 mg PO DAILY 11/01/24 11/01/24 10/31/24 History metformin 500 mg tablet 500 mg PO BID 11/01/24 11/01/24 10/31/24 History Allergies Allergy/AdvReac Type Severity Reaction Status Date / Time No Known Allergies Allergy Verified 10/31/24 17:58 Current Medications Generic Name Dose Route Start Last Admin Trade Name Ann Marie PRN Reason Stop Dose Admin Acetaminophen 650 mg 11/01/24 00:19 11/07/24 00:25 Acetaminophen 325 Mg Tablet PO 650 mg Q6H PRN Administration Mild/Mod Pain Or Temp >/= 101 Denture Adhesive 1 applic 11/02/24 17:21 11/02/24 17:37 Fixodent 39 Gm Tube DENTAL 1 applic PRN PRN Administration denture adhesive Denture Adhesive 1 each 11/05/24 02:27 11/05/24 03:16 Efferdent Effervescent DENTAL 1 each PRN PRN Administration denture cleanse Docusate Sodium 100 mg 11/07/24 17:00 11/12/24 05:47 Docusate Sodium 100 Mg Capsule PO 100 mg BID@0500,1700 KALYANI Administration Donepezil HCl 10 mg 11/02/24 21:00 11/11/24 20:31 Donepezil 5 Mg Tablet PO 10 mg BEDTIME KALYANI Administration Dorzolamide/Timolol 1 drop 11/07/24 17:00 11/12/24 05:50 Dorzolamide/Timolol Op Soln 10 Ml Btl EYE-RIGHT 1 drop BID@0500,1700 KALYANI Administration Erythromycin 1 applic 11/01/24 12:00 11/12/24 08:21 Erythromycin Op Oint 1 Gm EYE-BOTH 1 applic QID KALYANI Administration Protocol Famotidine 20 mg 11/01/24 00:19 11/12/24 00:28 Famotidine 20 Mg/2 Ml Inj IVP 20 mg Q12H KALYANI Administration Heparin Sodium (Porcine) 5,000 unit 11/01/24 00:19 11/06/24 23:52 Heparin 5,000 Unit/Ml Inj 1 Ml SUBCUT 5,000 unit On Hold: 11/07/24 09:00 Q12H KALYANI Administration Dextrose 250 mls @ 1,000 mls/hr 10/31/24 20:26 10/31/24 22:20 D10w IV Infused PRN PRN Infusion HYPOGLYCEMIA Linezolid 600 mg in 300 mls @ 300 mls/hr 11/06/24 11:30 11/12/24 02:44 Zyvox Premix IV Infused Q12H KALYANI Infusion Protocol Piperacillin Sod/Tazobactam 50 mls @ 12.5 mls/hr 11/06/24 12:00 11/12/24 05:46 Sod 3.375 gm/ Sodium Chloride IV 12.5 mls/hr Q8H KALYANI Administration Protocol Multivitamins 10 ml/ Amino 1,010 mls @ 83 mls/hr 11/10/24 18:30 11/12/24 08:20 Acids/Electrolytes/Dextrose IV 42 mls/hr .[id number] KALYANI Administration Fat Emulsion-[employer] Mdl Oil/Soybean Oil 100 mls @ 8.333 mls/hr 11/12/24 07:30 11/12/24 08:20 Intralipid 20% IV 8.33 mls/hr WeSa KALYANI Administration Sodium Bicarbonate 150 meq/ 1,150 mls @ 60 mls/hr 11/11/24 09:45 11/11/24 14:47 Dextrose IV 60 mls/hr On Hold: 11/11/24 22:39 .[id number] KALYANI Administration Olanzapine 2.5 mg 11/07/24 17:00 11/12/24 05:47 Olanzapine 5 Mg Tablet PO 2.5 mg BID@0500,1700 KALYANI Administration Olanzapine 5 mg 11/08/24 03:26 11/08/24 20:48 Olanzapine 10 Mg Vial IM 5 mg Q6H PRN Administration SEVERE AGITATION PFSH Acute PFSH: Medical History (Updated 11/12/24 @ 13:42 by Bernie Dozier MD) History of colon cancer History of renal cell carcinoma Type 2 diabetes mellitus Hypertension Surgical History (Updated 10/31/24 @ 21:32 by Cuauhtemoc Espana MD) History of resection of liver History of partial colectomy History of partial nephrectomy Vitals/I&O/Wt Last Vital Signs Temp 97.9 F 11/12/24 08:02 Pulse 96 11/12/24 08:02 Resp 21 H 11/12/24 08:02 BP 126/80 11/12/24 08:02 Pulse Ox 98 11/12/24 08:02 O2 Del Method Nasal Cannula 11/12/24 08:02 O2 Flow Rate 3 11/12/24 04:00 11/11/24 11/12/24 11/12/24 22:59 06:59 14:59 Intake Total 1296.384 / 2376.384 350 / 2376.384 401.8 / 401.8 Output Total 600 / 1450 850 / 1450 725 / 725 Balance 696.384 / 926.384 -500 / 926.384 -323.2 / -323.2 Weight last 48 hrs Weight 165 lb 6.4 oz Weight 163 lb 4.8 oz Physical Exam Const: COMMON NORMALS: no acute distress GENERAL APPEARANCE: cooperative and comfortable ORIENTATION/CONSCIOUSNESS: Yes awake and Yes oriented to person Chest: COMMONS NORMALS: normal inspection of the chest and normal palpation of entire chest wall CHEST: Yes Symmetrical chest wall rise Resp: COMMON NORMALS: normal respiratory effort, No retractions, No use of accessory muscles and clear to auscultation bilaterally EFFORT & INSPECTION: Yes symmetric chest movement AUSCULTATION: clear to auscultation bilaterally Cardio: COMMON NORMALS: regular rate, regular rhythm, S1 normal heart sound present, S2 normal heart sound present, No gallops present (Cardio), No clicks present (Cardio), No murmurs present (Cardio) and No rub (Cardio) RATE: regular rate RHYTHM: regular rhythm HEART SOUNDS: S1 normal heart sound present and S2 normal heart sound present PERIPHERAL PULSES: radial pulses present Extremity: COMMON NORMALS: no pedal edema Neuro: COMMON NORMALS: moves all extremities SENSORIUM/ORIENTATION: Yes oriented to person Urinary Catheter Management: Perdomo: Cath Placed During This Visit: yes Reason for Continuing Indwelling Catheter: Acute Urinary Retention or Obstruction Urinary Catheter Date of Insertion: 11/01/24 Urinary Catheter Time of Insertion: 00:01 Data 11/08/24 01:38 11/12/24 05:45 Micro: Microbiology 11/06/24 11:54 Blood Culture - Final Blood NO GROWTH AFTER 5 DAYS 11/06/24 11:52 Blood Culture - Final Blood NO GROWTH AFTER 5 DAYS A&P Assessment and plan 1. GUS (acute kidney injury): 2. Memory loss: 3. Hypertension: 4. Type 2 diabetes mellitus: 5. CHF, acute: Plan: He is not in respiratory distress, appears less volume overloaded since he received a dose of Lasix this morning. Once echocardiogram is obtained we can advise further. Will plan for an additional dose of Lasix 20 mg IV this afternoon, chest x-ray tomorrow morning. PDMP PDMP Reviewed: Not Reviewed Coding Level of Care Code Acute Code for Chg Fwd Diagnoses GUS (acute kidney injury) N17.9 Memory loss R41.3 Hypertension I10 Type 2 diabetes mellitus E11.9 CHF, acute I50.9 Documented by User: Jessica Ireland LPN 11/12/24 13:12 Medications/Allergies Home Medications ?Medication ?Instructions ?Recorded ?Confirmed ?Last Taken ?Type allopurinol 300 mg tablet 300 mg PO DAILY 11/01/24 11/01/24 10/31/24 History amlodipine 5 mg tablet 5 mg PO DAILY 11/01/24 11/01/24 10/31/24 History dorzolamide 22.3 mg-timolol 6.8 1 drp ophthalmic (eye) BID 11/01/24 11/01/24 10/31/24 History mg/mL eye drops lisinopril 40 mg tablet 40 mg PO DAILY 11/01/24 11/01/24 10/31/24 History metformin 500 mg tablet 500 mg PO BID 11/01/24 11/01/24 10/31/24 History Allergies Allergy/AdvReac Type Severity Reaction Status Date / Time No Known Allergies Allergy Verified 10/31/24 17:58 PFSH Acute PFSH: Medical History (Updated 11/12/24 @ 13:42 by Bernie Dozier MD) History of colon cancer History of renal cell carcinoma Type 2 diabetes mellitus Hypertension Surgical History (Updated 10/31/24 @ 21:32 by Cuauhtemoc Espana MD) History of resection of liver History of partial colectomy History of partial nephrectomy Physical Exam Urinary Catheter Management: Perdomo: Cath Placed During This Visit: yes Data 11/08/24 01:38 11/12/24 05:45 A&P Assessment and plan 1. GUS (acute kidney injury): 2. Memory loss: 3. Hypertension: 4. Type 2 diabetes mellitus: 5. CHF, acute: PDMP PDMP Reviewed: Not Reviewed Coding Level of Care Code Acute Code for Chg Fwd Diagnoses GUS (acute kidney injury) N17.9 Memory loss R41.3 Hypertension I10 Type 2 diabetes mellitus E11.9 CHF, acute I50.9 Documented by User: Aaron Goodson MD 11/12/24 16:13 Medications/Allergies Home Medications ?Medication ?Instructions ?Recorded ?Confirmed ?Last Taken ?Type allopurinol 300 mg tablet 300 mg PO DAILY 11/01/24 11/01/24 10/31/24 History amlodipine 5 mg tablet 5 mg PO DAILY 11/01/24 11/01/24 10/31/24 History dorzolamide 22.3 mg-timolol 6.8 1 drp ophthalmic (eye) BID 11/01/24 11/01/24 10/31/24 History mg/mL eye drops lisinopril 40 mg tablet 40 mg PO DAILY 11/01/24 11/01/24 10/31/24 History metformin 500 mg tablet 500 mg PO BID 11/01/24 11/01/24 10/31/24 History Allergies Allergy/AdvReac Type Severity Reaction Status Date / Time No Known Allergies Allergy Verified 10/31/24 17:58 PFSH Acute PFSH: Medical History (Updated 11/12/24 @ 13:42 by Bernie Dozier MD) History of colon cancer History of renal cell carcinoma Type 2 diabetes mellitus Hypertension Surgical History (Updated 10/31/24 @ 21:32 by Cuauhtemoc Espana MD) History of resection of liver History of partial colectomy History of partial nephrectomy Physical Exam Urinary Catheter Management: Perdomo: Cath Placed During This Visit: yes Data 11/08/24 01:38 11/12/24 05:45 A&P Assessment and plan 1. GUS (acute kidney injury): 2. Memory loss: 3. Hypertension: 4. Type 2 diabetes mellitus: 5. CHF, acute: Plan: He is not in respiratory distress, appears less volume overloaded since he received a dose of Lasix this morning. Once echocardiogram is obtained we can advise further. Will plan for an additional dose of Lasix 20 mg IV this afternoon, chest x-ray tomorrow morning. Patient was evaluated and cared for in conjunction with an advanced practice practitioner.? I personally examined the patient and reviewed the chart and all pertinent data including imaging, telemetry, and laboratory results.? I discussed the patient in detail with the advanced practice practitioner.? Please see? their note for complete consult note, testing results and agreed upon plan of care for the patient. Any additional corrections, assessments and recommendations will be listed below. GENERAL: Patient is alert, frail appearing NECK: No JVD or carotid bruit HEART: Regular S1 and S2, no murmur LUNGS: Clear to auscultation bilaterally. EXTREMITIES: Lower extremities with out edema bilaterally. Approaching euvolemia on exam but still requiring oxygen. Will give one more dose of low dose Lasix 20mg IV x1 and recheck renal function and CXR in am. Overall, clinically improving but still far from baseline. PDMP PDMP Reviewed: Not Reviewed Coding Level of Care Code Acute Code for g Fwd Diagnoses GUS (acute kidney injury) N17.9 Memory loss R41.3 Hypertension I10 Type 2 diabetes mellitus E11.9 CHF, acute I50.9
--- NOTE | 2024-11-12 10:47 | PC.NUTR ---
PPN restarted and currently running @42mls/hr per chart. Recommend goal rate of PPN to be 83mls/hr with standard electrolytes, MV 10mls per bag of PPN, and Fat Emulsion 50 grams/250mls given twice weekly. PPN @83mls/hr with fat emulsion 50 grams 2x/week provides 680kcals+143kcals FE or 46% Pt's estimated calorie needs and 85 grams protein or 105% Pt's estimated protein needs.
--- NOTE | 2024-11-12 12:14 | PC.SOCIAL ---
IMM updated IMM dated and initialed, copy placed in chart and copy given patient.
--- NOTE | 2024-11-12 12:57 | PC.SLP ---
Patient attempted to see patient again per nursing request. However he was sleeping upon therapist arrival. Therapist attempted to wake patient for several minutes. Patient opened his eyes x1 to ask what was on his try. Patient closed his eyes and did not verbally respond after therapist went through his lunch tray with him. Patient snoring by the time therapist left room.
--- NOTE | 2024-11-12 13:39 | P.PN_ITS ---
Subjective 2 Subjective: Rounded on this patient this morning. Denies any complaint. Vitals/I&O/Wt Last Vital Signs Temp 97.9 F 11/12/24 11:50 Pulse 95 11/12/24 11:50 Resp 18 11/12/24 11:50 BP 116/71 11/12/24 11:50 Pulse Ox 100 11/12/24 11:50 O2 Del Method Nasal Cannula 11/12/24 11:50 O2 Flow Rate 3 11/12/24 04:00 11/11/24 11/12/24 11/12/24 22:59 06:59 14:59 Intake Total 1296.384 / 2026.384 350 / 2376.384 1661.8 / 1661.8 Output Total 600 / 600 850 / 1450 725 / 725 Balance 696.384 / 1426.384 -500 / 926.384 936.8 / 936.8 Weight last 48 hrs Weight 75.024 kg Weight 74.072 kg Physical Exam 2 Narrative: Patient is sitting up in the chair with cheerful disposition upon my entering the room with the family. Patient was actually interactive. This is the most I have seen the patient being closer to what you can call interaction. Earlier on this morning patient was not responding to me at all Patient is doing much better with less pain on Toradol patient is up in the chair with cheerful disposition upon my second HEENT normocephalic/atraumatic neck neck is supple cardiovascular heart is regular lungs are pretty much clear abdomen soft nontender nondistended unremarkable extremities are intact. Neurology nonfocal except patient does have severe myopathy a generalized weakness that we will keep him from moving an inch without any help Urinary Catheter Management: Perdomo: Cath Placed During This Visit: yes Reason for Continuing Indwelling Catheter: Acute Urinary Retention or Obstruction Urinary Catheter Date of Insertion: 11/01/24 Urinary Catheter Time of Insertion: 00:01 Data 11/08/24 01:38 11/13/24 04:48 Micro: Microbiology 11/06/24 11:54 Blood Culture - Final Blood NO GROWTH AFTER 5 DAYS 11/06/24 11:52 Blood Culture - Final Blood NO GROWTH AFTER 5 DAYS A&P Assessment and plan 1. 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 At risk for aspiration: Patient is at risk for aspiration May need swallow eval repeat for interval change 4. Dysphagia: Patient does have dysphagia and on dysphagia diet and is important to know the patient does not like pur?ed diet 5. Hypotension: Resolving 6. GUS (acute kidney injury): Patient still with some degree of renal failure. Had improved 7. High anion gap metabolic acidosis: Continue to monitor 8. Encephalopathy: Patient I believe is cognitively intact and doing okay cannot relate any question posed to him and his speech is clear around today in the morning. 9. Uremia: Uremia is obviously resolving Plan: GI and DVT prophylaxis in place PDMP PDMP Reviewed: Last Reviewed 11/13/24 15:42 by Bernie Dozier MD Attestations 2 Medical Necessity Statement*: Patient is with CHF with cardiology consult will need some days more for optimization of care for CHF and optimizing patient debility and increasing appetite and also effort for patient to start feeding self while being assisted Coding Level of Care Code 35028 Diagnoses CHF, acute I50.9 Critical illness myopathy G72.81 At risk for aspiration Z91.89 Dysphagia R13.10 Hypotension I95.9 GUS (acute kidney injury) N17.9 High anion gap metabolic acidosis E87.29 Encephalopathy G93.40 Uremia N19 Time Spent (min) 30
[2024-11-12] MEDS: FUROsemide 10 mg/mL SDV 2mL 20 MG IVP (15:21)
--- NOTE | 2024-11-12 15:40 | PC.OT ---
ATTEMPTED SKILLED OT TREATMENT. PT OPENED EYES X1 WITH MULTIPLE VERBAL CUES.
--- NOTE | 2024-11-12 16:38 | P.PN_ITS ---
Subjective 2 Subjective: events noted Medications: Reviewed: Yes Vitals/I&O/Wt Last Vital Signs Temp 97.9 F 11/12/24 11:50 Pulse 95 11/12/24 11:50 Resp 18 11/12/24 11:50 BP 116/71 11/12/24 11:50 Pulse Ox 100 11/12/24 11:50 O2 Del Method Nasal Cannula 11/12/24 11:50 O2 Flow Rate 3 11/12/24 04:00 11/12/24 11/12/24 11/12/24 06:59 14:59 22:59 Intake Total 350 / 2376.384 1661.8 / 1661.8 300 / 1961.8 Output Total 850 / 1450 725 / 725 Balance -500 / 926.384 936.8 / 936.8 300 / 1236.8 Weight last 48 hrs Weight 75.024 kg Weight 74.072 kg Physical Exam 2 Narrative: Elderly man,, cachectic in bed no apparent distress. vs noted heent- nc/at eomi neck supple lungs clear heart regular abd soft + bs ext no edema Urinary Catheter Management: Perdomo: Cath Placed During This Visit: yes Reason for Continuing Indwelling Catheter: Acute Urinary Retention or Obstruction Urinary Catheter Date of Insertion: 11/01/24 Urinary Catheter Time of Insertion: 00:01 Data 11/08/24 01:38 11/13/24 04:48 Micro: Microbiology 11/06/24 11:54 Blood Culture - Final Blood NO GROWTH AFTER 5 DAYS 11/06/24 11:52 Blood Culture - Final Blood NO GROWTH AFTER 5 DAYS A&P Assessment and plan 1. GUS (acute kidney injury): 1. Acute kidney injury: Associated with severe hyperkalemia and metabolic acidosis, likely prerenal etiology. Please also note patient has history of a partial nephrectomy. CT scan does not show any obstruction. Please follow-up serologies. So far negative - Cr stable 2. History of hypertension holding lisinopril. Blood pressure on low side 3. History of diabetes hold, holding metformin 4. Dysphagia 5. Metabolic acidosis , Patient evaluated using audiovisual cart. Time spent 30 minutes Plan: see above PDMP PDMP Reviewed: Not Reviewed Attestations 2 Medical Necessity Statement*: per [facility] Coding Level of Care Code Acute Code for [facility] Diagnoses GUS (acute kidney injury) N17.9
[2024-11-13] VITALS (7 sets, daily range): BP systolic 110–130; BP diastolic 65–78; PULSE 10–99; RESP 15–19; TEMP 36.2–36.7; O2SAT 93–97
[2024-11-13] MEDS: linezolid premix 600 MG/300 ML PREMIX 300 MG IV ×2 (02:04→13:00)
[2024-11-13] MEDS: dorzolamide/timolol Op Soln 10 mL Btl 1 DROP EYE-RIGHT ×2 (05:20→17:05)
[2024-11-13] MEDS: piperacillin-tazobactam 3.375 GM in sodium chloride 0.9% (plus) 50 ML IV ×3 (05:20→21:18)
[2024-11-13 05:35] LABS: Alanine Aminotransferase 23 U/L (0-41); Albumin Level 2.7 g/dL (3.5-5.2); Alkaline Phosphatase 57 U/L (40-130); Anion Gap 15.7 (5-19); Aspartate Amino Transferase 29 U/L (0-40); Blood Urea Nitrogen 42 mg/dL (8-23); Calcium 8.3 mg/dL (8.5-10.5); Carbon Dioxide 24 mmol/L (22-29); Chloride 99 mmol/L (98-107); Creatinine Clr Calc Pharmacy 39.8878; Globulin 2.5 g/dL (1.3-4.6); Glucose 176 mg/dL (65-115); Osmolality Calculated 295 mOsm/kg (285-295); Potassium 3.7 mmol/L (3.5-5.1); Sodium 135 mmol/L (136-145); Total Protein 5.2 g/dL (6.6-8.7)
[2024-11-13] MEDS: FUROsemide 10 mg/mL SDV 2mL 20 MG IVP ×2 (08:28→16:55)
[2024-11-13] MEDS: efferdent effervescent 1 EACH DENTAL (08:32)
[2024-11-13] MEDS: fixodent 39 gm Tube 1 APPLIC DENTAL (08:33)
[2024-11-13] MEDS: multivitamin inj 10 ML in AA-Dex 4.25%-5% w/Lytes 1,000 ML 42 ML IV ×2 (08:38→20:36)
--- NOTE | 2024-11-13 09:45 | P.PN_ITS ---
<Statement entered by Aaron Goodson MD - 11/13/24 19:43> All testing including echocardiogram, laboratories, vital signs, CXRs were reviewed with my nurse practitioner. Patient was also seen and examined by me yesterday in consultation and today for follow up. Echocardiogram reveals moderate LV dysfunction, EF 37%. The pattern of dysfunction is consistent with either stress induced cardiomyopathy or ischemic cardiomyopathy. His daughters deny patient having any known cardiac disease in the past. Due to apical akinesis an apical thrombus is present. His CHF is improving with diuresis. BP is low normal, so we will start a low dose of metoprolol 12.5mg bid only. We will start Eliquis 2.5mg bid for the thrombus. He currently is not a good candidate for an ischemic work up. If the patient has a stress CM, LVF will improve over the next 4 weeks. Patient is not a candidate for a LHC due to advanced age and frailty. Further recommendation depending on his clinical progress. Subjective 2 Subjective: No events noted overnight. He denies chest pain or shortness of breath this morning. No lower extremity edema. Afternoon update: Chest x-ray shows improvement in the size of the bilateral pleural effusions and pulmonary vascular congestion. Vitals/I&O/Wt Last Vital Signs Temp 97.4 F L 11/13/24 11:36 Pulse 91 11/13/24 11:36 Resp 16 11/13/24 11:36 BP 110/71 11/13/24 11:36 Pulse Ox 95 11/13/24 11:36 O2 Del Method Room Air 11/13/24 11:36 O2 Flow Rate 3 11/13/24 04:00 11/12/24 11/13/24 11/13/24 22:59 06:59 14:59 Intake Total 450 / 2531.8 420 / 2531.8 1110 / 1110 Output Total 1100 / 2125 300 / 2125 Balance -650 / 406.8 120 / 406.8 1110 / 1110 Weight last 48 hrs Weight 161 lb 8 oz Weight 165 lb 6.4 oz Physical Exam 2 Const: COMMON NORMALS: no acute distress GENERAL APPEARANCE: cooperative and comfortable ORIENTATION/CONSCIOUSNESS: Yes awake and Yes oriented to person Chest: COMMONS NORMALS: normal inspection of the chest and normal palpation of entire chest wall CHEST: Yes Symmetrical chest wall rise Resp: COMMON NORMALS: normal respiratory effort, No retractions, No use of accessory muscles and clear to auscultation bilaterally EFFORT & INSPECTION: Yes symmetric chest movement AUSCULTATION: clear to auscultation bilaterally and diminished lung sounds (bases) bilateral Cardio: COMMON NORMALS: regular rate, regular rhythm, S1 normal heart sound present, S2 normal heart sound present, No gallops present (Cardio), No clicks present (Cardio), No murmurs present (Cardio) and No rub (Cardio) RATE: r egular rate RHYTHM: regular rhythm HEART SOUNDS: S1 normal heart sound present and S2 normal heart sound present PERIPHERAL PULSES: radial pulses present Extremity: COMMON NORMALS: no pedal edema Neuro: COMMON NORMALS: moves all extremities SENSORIUM/ORIENTATION: Yes oriented to person Urinary Catheter Management: Perdomo: Cath Placed During This Visit: yes Reason for Continuing Indwelling Catheter: Acute Urinary Retention or Obstruction Urinary Catheter Date of Insertion: 11/01/24 Urinary Catheter Time of Insertion: 00:01 Data 11/08/24 01:38 11/13/24 04:48 A&P Assessment and plan 1. GUS (acute kidney injury): 2. Memory loss: 3. Hypertension: 4. Type 2 diabetes mellitus: 5. CHF, acute: Plan: He appears pretty similar to yesterday, no respiratory distress. Recommend continued gentle diuresis with Lasix 20 mg daily. Echocardiogram is pending read. PDMP PDMP Reviewed: Not Reviewed Attestations 2 Medical Necessity Statement*: Continue diuresis Coding Level of Care Code Acute Code for [facility] Fwd Diagnoses GUS (acute kidney injury) N17.9 Memory loss R41.3 Hypertension I10 Type 2 diabetes mellitus E11.9 CHF, acute I50.9
--- NOTE | 2024-11-13 11:25 | XR_ITS ---
WS: [id number] Portable AP semiupright chest, 11/13/2024 Clinical Data: fluid overload Comparison: Portable chest, 11/11/2024 Findings: The bilateral pleural effusions have diminished slightly bilaterally. The pulmonary vascular congestion has diminished. The consolidation in the retrocardiac region remains the same. The heart remains the same size. No pneumothorax is seen. No nodules or masses are seen. The aortic arch shows calcification. There are monitor leads on the chest wall. XR/XR chest 1V portable [id number] Impression: 1. Decrease in bilateral pleural effusions and pulmonary vascular congestion. 2. No change in retrocardiac consolidation. 3. Atherosclerosis.
--- NOTE | 2024-11-13 14:49 | PM.PN ---
Subjective Subjective: Sitting on the chair, Medications: Reviewed: Yes Vitals/I&O/Wt Last Vital Signs Temp 97.4 F L 11/13/24 11:36 Pulse 91 11/13/24 11:36 Resp 16 11/13/24 11:36 BP 110/71 11/13/24 11:36 Pulse Ox 95 11/13/24 11:36 O2 Del Method Room Air 11/13/24 11:36 O2 Flow Rate 3 11/13/24 04:00 11/12/24 11/13/24 11/13/24 22:59 06:59 14:59 Intake Total 450 / 2111.8 420 / 2531.8 1110 / 1110 Output Total 1100 / 1825 300 / 2125 Balance -650 / 286.8 120 / 406.8 1110 / 1110 Weight last 48 hrs Weight 73.255 kg Weight 75.024 kg Physical Exam Narrative: Elderly man,, cachectic in bed no apparent distress. vs noted heent- nc/at eomi neck supple lungs clear heart regular abd soft + bs ext no edema Urinary Catheter Management: Perdomo: Cath Placed During This Visit: yes Reason for Continuing Indwelling Catheter: Acute Urinary Retention or Obstruction Urinary Catheter Date of Insertion: 11/01/24 Urinary Catheter Time of Insertion: 00:01 Data 11/08/24 01:38 11/13/24 04:48 A&P Assessment and plan 1. GUS (acute kidney injury): 1. Acute kidney injury: Associated with severe hyperkalemia and metabolic acidosis, likely prerenal etiology. Please also note patient has history of a partial nephrectomy. CT scan does not show any obstruction. Please follow-up serologies. So far negative - Cr stable in the mid 1 range 2. History of hypertension holding lisinopril. Blood pressure on low side 3. History of diabetes hold, holding metformin 4. Dysphagia 5. Metabolic acidosis , Patient evaluated using audiovisual cart. Time spent 30 minutes Plan: see above PDMP PDMP Reviewed: Not Reviewed Attestations Medical Necessity Statement*: Per medicine team Coding Level of Care Code Acute Code for [facility] Fwd Diagnoses GUS (acute kidney injury) N17.9
--- NOTE | 2024-11-13 15:50 | P.PN_ITS ---
Subjective 2 Subjective: Patient is fully awake and alert today sitting up in the chair seem as though he has gotten more energy than he did yesterday. And quite interactive able to talk with me smile and give me a thumbs up. Patient Vitals/I&O/Wt Last Vital Signs Temp 97.4 F L 11/13/24 11:36 Pulse 91 11/13/24 11:36 Resp 16 11/13/24 11:36 BP 110/71 11/13/24 11:36 Pulse Ox 95 11/13/24 11:36 O2 Del Method Room Air 11/13/24 11:36 O2 Flow Rate 3 11/13/24 04:00 11/13/24 11/13/24 11/13/24 06:59 14:59 22:59 Intake Total 420 / 2531.8 1410 / 1410 Output Total 300 / 2125 Balance 120 / 406.8 1410 / 1410 Weight last 48 hrs Weight 73.255 kg Weight 75.024 kg Physical Exam 2 Narrative: Patient is very conversant today and with cheerful disposition and a glimpse of some more energy today. Patient is not having appetite and like to feed but does not have the power much to feed self but did have a bite O2 today at meals. Patient is getting TPN this has been cut down in half. HEENT normocephalic atraumatic neck neck is supple cardiovascular heart rate is regular lungs are pretty much clear abdomen soft nontender nondistended unremarkable extremities are intact no edema has good pulses neurology has no focality lab studies lab studies reviewed and noted. Urinary Catheter Management: Perdomo: Cath Placed During This Visit: yes Reason for Continuing Indwelling Catheter: Acute Urinary Retention or Obstruction Urinary Catheter Date of Insertion: 11/01/24 Urinary Catheter Time of Insertion: 00:01 Data 11/08/24 01:38 11/13/24 04:48 A&P Assessment and plan 1. CHF, acute: 2. GUS (acute kidney injury): 3. At risk for aspiration: 4. Critical illness myopathy: 5. Dysphagia: 6. Protein calorie malnutrition: Plan: 1. CHF Patient with likely volume overload on chest systolic dysfunction and cardiomyopathy in a patient with such generalized critical illness myopathy -Diuresis gently - Cardiology consult - Repeat chest x-ray for interval change - Get echocardiogram read 2. GUS (acute kidney injury): Acute renal injury Will continue to follow through and optimize Avoid any nephrotoxin 3. Encephalopathy: Patient with profound metabolic encephalopathy With critical illness myopathy Continue to monitor. Culprit of acute renal injury leading to metabolic encephalopathy Continue to follow through chemistry and optimize Patient to follow through with care Out of bed to chair PT OT to follow through with this patient to get stronger to where he can feed self. Goal is if patient can eat 40 to 50% of meal to begin with and that will be wonderful. Patient was out of bed to chair today for 2 hours but did not do well and roll was sliding almost off the chair Could not assist in feeding self and will not actually eat much. - Will check electrolytes and optimize accordingly Bedside PT OT 4. Dehydration: The patient to be euvolemic Must restart the PPN patient had no energy and must have source of nutrition while we will get him to a level where he can participate in his own care before discharge Patient had to maintain certain oral intake prior to discharge 5. Critical illness myopathy: Patient with critical illness myopathy Continue to monitor. Culprit of acute renal injury leading to metabolic encephalopathy Continue to follow through chemistry and optimize Patient to follow through with care Out of bed to chair PT OT to follow through with this patient to get stronger to where he can feed self. Goal is if patient can eat 40 to 50% of meal to begin with and that will be wonderful. Patient was out of bed to chair today for 2 hours but did not do well and roll was sliding almost off the chair Could not assist in feeding self and will not actually eat much. - Will check electrolytes and optimize accordingly Bedside PT OT Plan: GI and DVT prophylaxis in place PDMP PDMP Reviewed: Last Reviewed 11/13/24 15:42 by Bernie Dozier MD Attestations 2 Medical Necessity Statement*: Will need more time to treat patient CHF and also to follow through with care with lack of power debility and not having much oral intake. Coding Level of Care Code 88659 Diagnoses CHF, acute I50.9 GUS (acute kidney injury) N17.9 At risk for aspiration Z91.89 Critical illness myopathy G72.81 Dysphagia R13.10 Protein calorie malnutrition E46 Time Spent (min) 30
[2024-11-13 20:03] LABS: Hematocrit 32.1 % (37-53); Hemoglobin 10.40 g/dL (11.27-16.99); Mean Corpuscular HGB Conc 32.4 g/dL (30-55); Mean Corpuscular Hemoglobin 30.4 pg (27-33); Mean Corpuscular Volume 93.9 fl (82-101); Nucleated Red Blood Cells % 0 %; Platelet Count 87 10^3/cmm (157-399); Red Blood Count 3.42 10^6/uL (3.85-5.65); White Blood Count 12.92 10^3/uL (3.29-11.43)
[2024-11-13 20:16] LABS: Alanine Aminotransferase 22 U/L (0-41); Albumin Level 2.9 g/dL (3.5-5.2); Alkaline Phosphatase 59 U/L (40-130); Anion Gap 19.0 (5-19); Aspartate Amino Transferase 26 U/L (0-40); Blood Urea Nitrogen 45 mg/dL (8-23); Calcium 8.6 mg/dL (8.5-10.5); Carbon Dioxide 22 mmol/L (22-29); Chloride 96 mmol/L (98-107); Creatinine Clr Calc Pharmacy 37.2286; Globulin 2.8 g/dL (1.3-4.6); Glucose 209 mg/dL (65-115); Osmolality Calculated 294 mOsm/kg (285-295); Potassium 4.0 mmol/L (3.5-5.1); Sodium 133 mmol/L (136-145); Total Protein 5.7 g/dL (6.6-8.7)
[2024-11-14] VITALS (9 sets, daily range): BP systolic 89–130; BP diastolic 59–82; PULSE 0–100; RESP 16–19; TEMP 36.2–36.6; O2SAT 90–98
[2024-11-14] MEDS: linezolid premix 600 MG/300 ML PREMIX 300 MG IV ×2 (02:10→14:24)
[2024-11-14 05:00] LABS: Hematocrit 29.5 % (37-53); Hemoglobin 10.00 g/dL (11.27-16.99); Mean Corpuscular HGB Conc 33.9 g/dL (30-55); Mean Corpuscular Hemoglobin 31.4 pg (27-33); Mean Corpuscular Volume 92.8 fl (82-101); Nucleated Red Blood Cells % 0 %; Platelet Count 70 10^3/cmm (157-399); Red Blood Count 3.18 10^6/uL (3.85-5.65); White Blood Count 10.65 10^3/uL (3.29-11.43)
[2024-11-14 05:19] LABS: Alanine Aminotransferase 20 U/L (0-41); Albumin Level 2.8 g/dL (3.5-5.2); Alkaline Phosphatase 63 U/L (40-130); Anion Gap 18.2 (5-19); Aspartate Amino Transferase 25 U/L (0-40); Blood Urea Nitrogen 48 mg/dL (8-23); Calcium 8.5 mg/dL (8.5-10.5); Carbon Dioxide 23 mmol/L (22-29); Chloride 96 mmol/L (98-107); Creatinine Clr Calc Pharmacy 34.9018; Globulin 2.8 g/dL (1.3-4.6); Glucose 232 mg/dL (65-115); Osmolality Calculated 296 mOsm/kg (285-295); Potassium 4.2 mmol/L (3.5-5.1); Sodium 133 mmol/L (136-145); Total Protein 5.6 g/dL (6.6-8.7)
[2024-11-14] MEDS: piperacillin-tazobactam 3.375 GM in sodium chloride 0.9% (plus) 50 ML IV ×3 (05:39→23:03)
[2024-11-14] MEDS: dorzolamide/timolol Op Soln 10 mL Btl 1 DROP EYE-RIGHT ×2 (05:45→17:16)
[2024-11-14] MEDS: multivitamin inj 10 ML in AA-Dex 4.25%-5% w/Lytes 1,000 ML 42 ML IV (07:54)
--- NOTE | 2024-11-14 09:14 | P.PN_ITS ---
Subjective 2 Subjective: no new complaints on PPN Medications: Reviewed: Yes Vitals/I&O/Wt Last Vital Signs Temp 97.1 F L 11/14/24 07:47 Pulse 95 11/14/24 07:47 Resp 17 11/14/24 07:47 BP 90/65 11/14/24 07:47 Pulse Ox 92 11/14/24 07:47 O2 Del Method Room Air 11/14/24 04:00 O2 Flow Rate 3 11/13/24 04:00 11/13/24 11/14/24 11/14/24 22:59 06:59 14:59 Intake Total 792.6 / 2202.6 470 / 2672.6 534.6 / 534.6 Output Total 900 / 900 400 / 1300 Balance -107.4 / 1302.6 70 / 1372.6 534.6 / 534.6 Weight last 48 hrs Weight 74.588 kg Weight 73.255 kg Physical Exam 2 Narrative: Elderly man,, cachectic in bed no apparent distress. vs noted heent- nc/at eomi neck supple lungs clear heart regular abd soft + bs ext no edema Urinary Catheter Management: Perdomo: Cath Placed During This Visit: yes Reason for Continuing Indwelling Catheter: Acute Urinary Retention or Obstruction Urinary Catheter Date of Insertion: 11/01/24 Urinary Catheter Time of Insertion: 00:01 Data 11/14/24 04:22 11/14/24 04:22 A&P Assessment and plan 1. GUS (acute kidney injury): 1. Acute kidney injury: Associated with severe hyperkalemia and metabolic acidosis, likely prerenal etiology. Please also note patient has history of a partial nephrectomy. CT scan does not show any obstruction. Please follow-up serologies. So far negative - Cr stable in the mid 1 range 2. History of hypertension holding lisinopril. 3. History of diabetes hold, holding metformin 4. Dysphagia 5. Metabolic acidosis , Patient with poor p.o. intake and at risk for recurrent malnutrition and GUS's, and now getting PPN, need to discuss with family, regarding possibility of G- tube placement versus hospice/comfort care Recommend palliative care consultation. Patient evaluated using audiovisual cart. Time spent 30 minutes Plan: see above PDMP PDMP Reviewed: Not Reviewed Attestations 2 Medical Necessity Statement*: per callie Coding Level of Care Code Acute Code for [facility] Fwd Diagnoses GUS (acute kidney injury) N17.9
[2024-11-14] MEDS: FUROsemide 10 mg/mL SDV 2mL 20 MG IVP (09:16)
[2024-11-14] MEDS: multivitamin therapeutic Tablet 1 TAB PO (09:17)
--- NOTE | 2024-11-14 09:30 | PC.SLP ---
Pt asleep in chair upon therapist arrival. Pt observed consuming tablet in yogurt, no difficulty. Pt was able to consume small sips of thickened liquid, offered by RN. Pt not able to maintain alertness and requests to be done consuming liquids/bites after a couple of intakes.
--- NOTE | 2024-11-14 09:56 | PC.SOCIAL ---
IMM Update pg 2 of IMM Updated and reviewed w/ patients family. Copy provided and copy dated, initialed and placed in chart.
--- NOTE | 2024-11-14 12:58 | PC.SOCIAL ---
IMM Update pg 2 of IMM updated and reviewed w/ patients daughter. Copy provided and copy dated, initialed and placed in chart.
--- NOTE | 2024-11-14 16:01 | P.PN_ITS ---
<Statement entered by Aaron Goodson MD - 11/14/24 17:14> Patient was evaluated and cared for in conjunction with an advanced practice practitioner.? I personally examined the patient and reviewed the chart and all pertinent data including imaging, telemetry, and laboratory results.? I discussed the patient in detail with the advanced practice practitioner.? Please see? their note for complete consult note, testing results and agreed upon plan of care for the patient. Due to hypotension we will stop the metoprolol. Subjective 2 Subjective: No events noted overnight. Echocardiogram read yesterday evening showed apical LV thrombus, large left pleural effusion, LVEF 37% with wall motion abnormality (apical and mid myocardial segments, hyperdynamic basal segments), moderate hypokinesis of the right ventricle, mild aortic stenosis, very small circumferential pericardial effusion. He was started on anticoagulation with apixaban 2.5 mg twice a day, and metoprolol 12.5 mg twice a day. He denies any chest pain or worsening shortness of breath. No lower extremity edema noted. Per discussion with nursing staff, plan is for discharge to [facility] Sunday with possible transition to hospice once he gets Medicaid approved. Vitals/I&O/Wt Last Vital Signs Temp 97.7 F 11/14/24 12:53 Pulse 95 11/14/24 12:53 Resp 17 11/14/24 12:53 BP 89/59 11/14/24 12:53 Pulse Ox 94 11/14/24 12:53 O2 Del Method Room Air 11/14/24 04:00 O2 Flow Rate 3 11/13/24 04:00 11/14/24 11/14/24 11/14/24 06:59 14:59 22:59 Intake Total 470 / 2672.6 604.6 / 604.6 Output Total 400 / 1300 Balance 70 / 1372.6 604.6 / 604.6 Weight last 48 hrs Weight 164 lb 7 oz Weight 161 lb 8 oz Physical Exam 2 Resp: AUSCULTATION: diminished lung sounds bilateral in the lower lung diaz Cardio: COMMON NORMALS: regular rate, regular rhythm, S1 normal heart sound present and S2 normal heart sound present RATE: regular rate RHYTHM: r egular rhythm HEART SOUNDS: S1 normal heart sound present and S2 normal heart sound present Extremity: GENERAL: No edema Urinary Catheter Management: Perdomo: Cath Placed During This Visit: yes Reason for Continuing Indwelling Catheter: Acute Urinary Retention or Obstruction Urinary Catheter Date of Insertion: 11/01/24 Urinary Catheter Time of Insertion: 00:01 Data 11/14/24 04:22 11/14/24 04:22 A&P Assessment and plan 1. Left ventricular apical thrombus: 2. Systolic CHF: 3. Pleural effusion due to CHF (congestive heart failure): 4. Aortic stenosis: Plan: He has a poor long-term prognosis, agree with transition to hospice. No bleeding noted since starting Eliquis. Will continue Lasix 20 mg daily. IV fluid ordered by nephrology, creatinine 1.6 (1.4-1.5 for the last 2 weeks). PDMP PDMP Reviewed: Not Reviewed Attestations 2 Medical Necessity Statement*: transition to SNF soon Coding Level of Care Code Acute Code for [facility]wd Diagnoses Left ventricular apical thrombus I51.3 Systolic CHF I50.20 Pleural effusion due to CHF (congestive heart failure) I50.9 Aortic stenosis I35.0
[2024-11-15] MEDS: linezolid premix 600 MG/300 ML PREMIX 300 MG IV ×2 (02:23→14:34)
[2024-11-15 03:55] VITALS: BP 125/69; PULSE 99; RESP 19; TEMP 36.7; O2SAT 94
[2024-11-15] MEDS: dorzolamide/timolol Op Soln 10 mL Btl 1 DROP EYE-RIGHT ×2 (05:31→17:16)
[2024-11-15 07:42] VITALS: BP 112/69; PULSE 105; RESP 16; TEMP 36.4; O2SAT 92
[2024-11-15] MEDS: multivitamin inj 10 ML in AA-Dex 4.25%-5% w/Lytes 1,000 ML 42 ML IV (09:24)
[2024-11-15] MEDS: multivitamin therapeutic Tablet 1 TAB PO (09:53)
[2024-11-15] MEDS: piperacillin-tazobactam 3.375 GM in sodium chloride 0.9% (plus) 50 ML IV ×2 (09:53→16:44)
[2024-11-15 11:29] VITALS: BP 126/76; PULSE 106; RESP 17; TEMP 36.4; O2SAT 90
--- NOTE | 2024-11-15 11:42 | PC.NURSE ---
Upon looking over patient's MAR and orders, Dr. Sellers had ordered patient's TPN rate be lowered to 42mL/hr on 11/11/24 at 2239. The ordered TPN still showed it was to be running at 83mL/hr but the actual rate was at 42mL/hr. This caused the MAR to be behind and appear as a bag was missed. This nurse adjusted the order to match Dr. Sellers's CRITICAL MESSAGE TO NURSE order of the lower rate which made the order discontinue on the MAR, which is still running at the correct rate. This nurse called pharmacy to inform Levy of the change. Levy from pharmacy adjusted the time of the new bag to be hung.
--- NOTE | 2024-11-15 15:27 | P.PN_ITS ---
Subjective 2 Subjective: Drowsy. Denies SOB laying flat in bed. Vitals/I&O/Wt Last Vital Signs Temp 97.6 F 11/15/24 11:29 Pulse 106 H 11/15/24 11:29 Resp 17 11/15/24 11:29 BP 126/76 11/15/24 11:29 Pulse Ox 90 11/15/24 11:29 O2 Del Method Room Air 11/15/24 11:29 O2 Flow Rate 3 11/13/24 04:00 11/15/24 11/15/24 11/15/24 06:59 14:59 22:59 Intake Total 4456 / 4456 Output Total 425 / 925 Balance -425 / 399.6 4456 / 4456 Weight last 48 hrs Weight 163 lb 3.2 oz Weight 164 lb 7 oz Physical Exam 2 Urinary Catheter Management: Perdomo: Cath Placed During This Visit: yes Reason for Continuing Indwelling Catheter: Accurate Measurement of Urinary Output in Critically Ill Patients Urinary Catheter Date of Insertion: 11/01/24 Urinary Catheter Time of Insertion: 00:01 Data 11/14/24 04:22 11/14/24 04:22 A&P PDMP PDMP Reviewed: Not Reviewed Coding Level of Care Code Acute Code for [facility]
[2024-11-15 16:00] VITALS: BP 126/70; PULSE 103; RESP 16; TEMP 36.7; O2SAT 95
--- NOTE | 2024-11-15 16:04 | P.PN_ITS ---
Subjective 2 Subjective: Not a good historian after waking him from sleep Vitals/I&O/Wt Last Vital Signs Temp 97.6 F 11/15/24 11:29 Pulse 106 H 11/15/24 11:29 Resp 17 11/15/24 11:29 BP 126/76 11/15/24 11:29 Pulse Ox 90 11/15/24 11:29 O2 Del Method Room Air 11/15/24 11:29 O2 Flow Rate 3 11/13/24 04:00 11/15/24 11/15/24 11/15/24 06:59 14:59 22:59 Intake Total 4456 / 4456 Output Total 425 / 925 Balance -425 / 399.6 4456 / 4456 Weight last 48 hrs Weight 163 lb 3.2 oz Weight 164 lb 7 oz Physical Exam 2 Const: COMMON NORMALS: no acute distress OTHER: Lying flat in bed in no acute distress. Patient is sleeping Neck/C-Spine: OTHER: No JVD Resp: OTHER: Lungs are clear to auscultation. No wheezing Cardio: OTHER: Regular rate and rhythm. No murmur Extremity: NARRATIVE EXTREMITY EXAM: No lower extremity edema Skin: OTHER: No rash Urinary Catheter Management: Perdomo: Cath Placed During This Visit: yes Reason for Continuing Indwelling Catheter: Accurate Measurement of Urinary Output in Critically Ill Patients Urinary Catheter Date of Insertion: 11/01/24 Urinary Catheter Time of Insertion: 00:01 Data 11/14/24 04:22 11/14/24 04:22 A&P Assessment and plan 1. Left ventricular apical thrombus: 2. Systolic CHF: 3. Pleural effusion due to CHF (congestive heart failure): 4. Aortic stenosis: Plan: Hydrated with IV fluids over the past 24 hours. Agree with stopping IV fluids and resuming Lasix 20 mg p.o. daily. Hypotension has improved since stopping low-dose metoprolol. Continue with Eliquis for LV thrombus. Agree with transitioning towards hospice care. Please call if you have any further cardiac questions. Will sign off for now. PDMP PDMP Reviewed: Not Reviewed Attestations 2 Medical Necessity Statement*: Patient can be transition to retirement and even hospice care if family agreeable. Coding Level of Care Code Acute Code for [facility] Fwd Diagnoses Left ventricular apical thrombus I51.3 Systolic CHF I50.20 Pleural effusion due to CHF (congestive heart failure) I50.9 Aortic stenosis I35.0
--- NOTE | 2024-11-15 16:54 | P.PN_ITS ---
Subjective 2 Subjective: Patient is increasingly confused today patient is not actually communicating or doing anything 1 can look forward to for a glimpse of Hope. Vitals/I&O/Wt Last Vital Signs Temp 98.1 F 11/15/24 16:00 Pulse 103 H 11/15/24 16:00 Resp 16 11/15/24 16:00 BP 126/70 11/15/24 16:00 Pulse Ox 95 11/15/24 16:00 O2 Del Method Room Air 11/15/24 16:00 O2 Flow Rate 3 11/13/24 04:00 11/15/24 11/15/24 11/15/24 06:59 14:59 22:59 Intake Total 4456 / 4456 300 / 4756 Output Total 425 / 925 Balance -425 / 399.6 4456 / 4456 300 / 4756 Weight last 48 hrs Weight 74.026 kg Weight 74.588 kg Physical Exam 2 Narrative: Patient is very confused today eyes closed history patient did close off of his body. And will not verbalize anything that is audible and understandable. HEENT normocephalic atraumatic neck neck is supple cardiovascular heart rate is regular lungs are pretty much clear abdomen soft nontender nondistended unremarkable extremities are intact no edema has good pulses neurology has no focality lab studies lab studies reviewed and noted. Urinary Catheter Management: Perdomo: Cath Placed During This Visit: yes Reason for Continuing Indwelling Catheter: Accurate Measurement of Urinary Output in Critically Ill Patients Urinary Catheter Date of Insertion: 11/01/24 Urinary Catheter Time of Insertion: 00:01 Data 11/14/24 04:22 11/14/24 04:22 A&P Assessment and plan 1. Aortic stenosis: 2. Pleural effusion due to CHF (congestive heart failure): 3. Systolic CHF: 4. Left ventricular apical thrombus: 5. At risk for aspiration: 6. CHF, acute: Plan: Was continued to follow through plan with supportive care maintaining and encouraging patient to eat and feed maintaining electrolyte imbalance while the family walk up for hospice care. Patient is still getting TPN. PDMP PDMP Reviewed: Last Reviewed 11/13/24 15:42 by Bernie Dozier MD Attestations 2 Medical Necessity Statement*: Cardiology had been on the case and felt that patient is more appropriate to transitioning to hospice because long time prognosis is very poor. Coding Level of Care Code 17318 Diagnoses Aortic stenosis I35.0 Pleural effusion due to CHF (congestive heart failure) I50.9 Systolic CHF I50.20 Left ventricular apical thrombus I51.3 At risk for aspiration Z91.89 CHF, acute I50.9 Time Spent (min) 60
[2024-11-15 19:46] VITALS: BP 121/70; PULSE 95; RESP 17; TEMP 36.4; O2SAT 92
--- NOTE | 2024-11-15 19:50 | PM.PN ---
Subjective Subjective: events noted Medications: Reviewed: Yes Vitals/I&O/Wt Last Vital Signs Temp 97.6 F 11/15/24 19:46 Pulse 95 11/15/24 19:46 Resp 17 11/15/24 19:46 BP 121/70 11/15/24 19:46 Pulse Ox 92 11/15/24 19:46 O2 Del Method Room Air 11/15/24 19:46 O2 Flow Rate 3 11/13/24 04:00 11/15/24 11/15/24 11/15/24 06:59 14:59 22:59 Intake Total 4456 / 4456 660 / 5116 Output Total 425 / 925 Balance -425 / 399.6 4456 / 4456 660 / 5116 Weight last 48 hrs Weight 74.026 kg Weight 74.588 kg Physical Exam Narrative: Elderly man,, cachectic in bed no apparent distress. vs noted heent- nc/at eomi neck supple lungs clear heart regular abd soft + bs ext no edema Urinary Catheter Management: Perdomo: Cath Placed During This Visit: yes Reason for Continuing Indwelling Catheter: Accurate Measurement of Urinary Output in Critically Ill Patients Urinary Catheter Date of Insertion: 11/01/24 Urinary Catheter Time of Insertion: 00:01 Data 11/14/24 04:22 11/14/24 04:22 A&P Assessment and plan 1. GUS (acute kidney injury): 1. Acute kidney injury: Associated with severe hyperkalemia and metabolic acidosis, likely prerenal etiology. Please also note patient has history of a partial nephrectomy. CT scan does not show any obstruction. Please follow-up serologies. So far negative - Cr stable in the mid 1 range 2. History of hypertension holding lisinopril. 3. History of diabetes hold, holding metformin 4. Dysphagia 5. Metabolic acidosis , Patient with poor p.o. intake and at risk for recurrent malnutrition and GUS's, and now getting PPN, , discuss goals of care with family and discuss hospice/comfort care Recommend palliative care consultation. Patient evaluated using audiovisual cart. Time spent 30 minutes Plan: see above PDMP PDMP Reviewed: Not Reviewed Attestations Medical Necessity Statement*: per medicine Coding Level of Care Code Acute Code for [facility] Fwd Diagnoses GUS (acute kidney injury) N17.9
[2024-11-16] VITALS (7 sets, daily range): BP systolic 112–133; BP diastolic 48–80; PULSE 91–104; RESP 17–21; TEMP 36.4–37.1; O2SAT 94–100
[2024-11-16] MEDS: piperacillin-tazobactam 3.375 GM in sodium chloride 0.9% (plus) 50 ML IV ×3 (00:58→16:19)
[2024-11-16] MEDS: linezolid premix 600 MG/300 ML PREMIX 300 MG IV ×2 (03:53→14:24)
[2024-11-16] MEDS: dorzolamide/timolol Op Soln 10 mL Btl 1 DROP EYE-RIGHT ×2 (09:33→16:20)
[2024-11-16] MEDS: multivitamin therapeutic Tablet 1 TAB PO (09:35)
[2024-11-16] MEDS: multivitamin inj 10 ML in AA-Dex 4.25%-5% w/Lytes 1,000 ML 42 ML IV (09:53)
--- NOTE | 2024-11-16 11:52 | PM.PN ---
Subjective Subjective: no new c/o Medications: Reviewed: Yes Vitals/I&O/Wt Last Vital Signs Temp 98.2 F 11/16/24 11:02 Pulse 91 11/16/24 11:02 Resp 18 11/16/24 11:02 BP 112/71 11/16/24 11:02 Pulse Ox 99 11/16/24 11:02 O2 Del Method Nasal Cannula 11/16/24 11:02 O2 Flow Rate 3 11/16/24 07:32 11/15/24 11/16/24 11/16/24 22:59 06:59 14:59 Intake Total 740 / 5196 1792 / 6988 350 / 350 Output Total 375 / 375 Balance 740 / 5196 1417 / 6613 350 / 350 Weight last 48 hrs Weight 73.164 kg Weight 74.026 kg Physical Exam Narrative: Elderly man,, cachectic in bed no apparent distress. vs noted heent- nc/at eomi neck supple lungs clear heart regular abd soft + bs ext no edema Urinary Catheter Management: Perdomo: Cath Placed During This Visit: yes Reason for Continuing Indwelling Catheter: Accurate Measurement of Urinary Output in Critically Ill Patients Urinary Catheter Date of Insertion: 11/01/24 Urinary Catheter Time of Insertion: 00:01 Data 11/14/24 04:22 11/14/24 04:22 A&P Assessment and plan 1. GUS (acute kidney injury): 1. Acute kidney injury: Associated with severe hyperkalemia and metabolic acidosis, likely prerenal etiology. Please also note patient has history of a partial nephrectomy. CT scan does not show any obstruction. Please follow-up serologies. So far negative - Cr stable in the mid 1 range 2. History of hypertension holding lisinopril. 3. History of diabetes hold, holding metformin 4. Dysphagia 5. Metabolic acidosis , Patient with poor p.o. intake and at risk for recurrent malnutrition and GUS's, and now getting PPN, , discuss goals of care with family and discuss hospice/comfort care Recommend palliative care consultation. Patient evaluated using audiovisual cart. Time spent 30 minutes Plan: see above PDMP PDMP Reviewed: Not Reviewed Attestations Medical Necessity Statement*: per callie Coding Level of Care Code Acute Code for [facility] Fwd Diagnoses GUS (acute kidney injury) N17.9
[2024-11-16 13:33] LABS: Anion Gap 18.9 (5-19); Blood Urea Nitrogen 59 mg/dL (8-23); Calcium 8.6 mg/dL (8.5-10.5); Carbon Dioxide 22 mmol/L (22-29); Chloride 99 mmol/L (98-107); Glucose 199 mg/dL (65-115); Osmolality Calculated 304 mOsm/kg (285-295); Potassium 3.9 mmol/L (3.5-5.1); Sodium 136 mmol/L (136-145)
[2024-11-16 13:38] LABS: Creatinine Clr Calc Pharmacy 37.2107
--- NOTE | 2024-11-16 17:55 | P.PN_ITS ---
Subjective 2 Subjective: Patient with worsening critical illness myopathy that started with ATN with uremia and no sign of infection nephrology had been on the case patient did tolerate would not feed self does not have appetite finally family had him DNR and now transitioning to hospice. Patient is volume overloaded with cardiology consult who commented that this is a better choice for the patient to go for hospice as patient profile is very poor long-term. Echocardiogram has showed cardiac l thrombosis Vitals/I&O/Wt Last Vital Signs Temp 98.7 F 11/16/24 16:19 Pulse 104 H 11/16/24 16:19 Resp 17 11/16/24 16:19 BP 113/48 11/16/24 16:19 Pulse Ox 94 11/16/24 16:19 O2 Del Method Room Air 11/16/24 16:19 O2 Flow Rate 3 11/16/24 07:32 11/16/24 11/16/24 11/16/24 06:59 14:59 22:59 Intake Total 1792 / 6988 520 / 520 300 / 820 Output Total 375 / 375 Balance 1417 / 6613 520 / 520 300 / 820 Weight last 48 hrs Weight 73.164 kg Weight 74.026 kg Physical Exam 2 Narrative: Generally patient is weak appearing does not have any energy does not feed self. Does not even eat when assisted. Patient is on dysphagia diet with pur?ed diet patient does not like the pur?ed food. Patient is on TPN and at discharge the TPN should be discontinued but since patient is transitioning to hospice that can be discontinued when patient goes to hospice and if patient is going to skilled care TPN supposed to be off 2 days prior to transfer. HEENT normocephalic/atraumatic neck neck is supple cardiovascular heart rate is regular lungs are pretty much clear abdomen soft nontender nondistended unremarkable extremities are intact no edema has good pulses neurology has no focality lab studies lab studies reviewed and noted. Urinary Catheter Management: Perdomo: Cath Placed During This Visit: yes Reason for Continuing Indwelling Catheter: Accurate Measurement of Urinary Output in Critically Ill Patients Urinary Catheter Date of Insertion: 11/01/24 Urinary Catheter Time of Insertion: 00:01 Data 11/14/24 04:22 11/16/24 13:05 A&P Assessment and plan 1. Systolic CHF: 2. Pleural effusion due to CHF (congestive heart failure): 3. Aortic stenosis: 4. Left ventricular apical thrombus: 5. At risk for aspiration: 6. CHF, acute: 7. Critical illness myopathy: 8. Dysphagia: 9. Protein calorie malnutrition: 10. Memory loss: 11. Hypotension: 12. GUS (acute kidney injury): 13. High anion gap metabolic acidosis: 14. Type 2 diabetes mellitus: 15. Hypertension: 16. Encephalopathy: 17. Uremia: 18. Dehydration: 19. Urinary tract infection: 20. Acute hyperkalemia: Plan: 1. CHF Patient with likely volume overload on chest systolic dysfunction and cardiomyopathy in a patient with such generalized critical illness myopathy -Diuresis gently - Cardiology consult--cardiology embraced hospice because patient long-term prognosis is very poor - Repeat chest x-ray for interval change--unilateral pleural effusion - echocardiogram -systolic cardiomyopathy 2. GUS (acute kidney injury): Acute renal injury Will continue to follow through and optimize Avoid any nephrotoxin 3. Encephalopathy: Patient with profound metabolic encephalopathy With critical illness myopathy Continue to monitor. Culprit of acute renal injury leading to metabolic encephalopathy Continue to follow through chemistry and optimize Patient to follow through with care Out of bed to chair PT OT to follow through with this patient to get stronger to where he can feed self. Goal is if patient can eat 40 to 50% of meal to begin with and that will be wonderful. Patient was out of bed to chair today for 2 hours but did not do well and roll was sliding almost off the chair Could not assist in feeding self and will not actually eat much. - Will check electrolytes and optimize accordingly Bedside PT OT 4. Dehydration: The patient to be euvolemic Must restart the PPN patient had no energy and must have source of nutrition while we will get him to a level where he can participate in his own care before discharge Patient had to maintain certain oral intake prior to discharge 5. Critical illness myopathy: Patient with critical illness myopathy Continue to monitor. Culprit of acute renal injury leading to metabolic encephalopathy Continue to follow through chemistry and optimize Patient to follow through with care Out of bed to chair PT OT to follow through with this patient to get stronger to where he can feed self. Goal is if patient can eat 40 to 50% of meal to begin with and that will be wonderful. Patient was out of bed to chair today for 2 hours but did not do well and roll was sliding almost off the chair Could not assist in feeding self and will not actually eat much. - Will check electrolytes and optimize accordingly Bedside PT OT Plan: GI and DVT prophylaxis in place Definitive plan for the patient is fdc with hospice family are looking and will no more tomorrow being 11/17/2024 PDMP PDMP Reviewed: Last Reviewed 11/13/24 15:42 by Bernie Dozier MD Attestations 2 Medical Necessity Statement*: Patient had made made DNR and the family and transitioning to hospice and this is the middle of the care more to unfold on Sunday which will be tomorrow 11/17/2024 regarding discharge process and destination Coding Level of Care Code Acute Code for [facility] Fwd Diagnoses Systolic CHF I50.20 Pleural effusion due to CHF (congestive heart failure) I50.9 Aortic stenosis I35.0 Left ventricular apical thrombus I51.3 At risk for aspiration Z91.89 CHF, acute I50.9 Critical illness myopathy G72.81 Dysphagia R13.10 Protein calorie malnutrition E46 Memory loss R41.3 Hypotension I95.9 GUS (acute kidney injury) N17.9 High anion gap metabolic acidosis E87.29 Type 2 diabetes mellitus E11.9 Hypertension I10 Encephalopathy G93.40 Uremia N19 Dehydration E86.0 Urinary tract infection N39.0 Acute hyperkalemia E87.5
[2024-11-17] MEDS: piperacillin-tazobactam 3.375 GM in sodium chloride 0.9% (plus) 50 ML IV ×2 (00:54→08:50)
[2024-11-17] MEDS: linezolid premix 600 MG/300 ML PREMIX 300 MG IV (02:18)
[2024-11-17 03:36] VITALS: BP 124/80; PULSE 100; RESP 22; TEMP 36.5; O2SAT 94
[2024-11-17 07:29] VITALS: BP 137/74; PULSE 104; RESP 20; TEMP 36.4; O2SAT 92
[2024-11-17] MEDS: multivitamin therapeutic Tablet 1 TAB PO (08:33)
[2024-11-17 11:24] VITALS: BP 113/65; PULSE 96; RESP 18; TEMP 36.5; O2SAT 96
--- NOTE | 2024-11-17 12:12 | P.PN_ITS ---
<Statement entered by Aaron Goodson MD - 11/17/24 18:31> Patient was evaluated and cared for in conjunction with an advanced practice practitioner.? I discussed the patient in detail with the advanced practice practitioner.?We are in agreement with hospice care. Call if any further questions. Subjective 2 Subjective: Laying in bed, denies chest pain or shortness of breath. He is intermittently unintelligible. No labs drawn today. Vitals/I&O/Wt Last Vital Signs Temp 97.7 F 11/17/24 11:24 Pulse 96 11/17/24 11:24 Resp 18 11/17/24 11:24 BP 113/65 11/17/24 11:24 Pulse Ox 96 11/17/24 11:24 O2 Del Method Room Air 11/17/24 11:24 O2 Flow Rate 3 11/16/24 07:32 11/16/24 11/17/24 11/17/24 22:59 06:59 14:59 Intake Total 350 / 1220 350 / 1220 40 / 40 Output Total 600 / 900 300 / 900 Balance -250 / 320 50 / 320 40 / 40 Weight last 48 hrs Weight 165 lb 1.6 oz Weight 161 lb 4.8 oz Physical Exam 2 Chest: COMMONS NORMALS: normal inspection of the chest Resp: COMMON NORMALS: normal respiratory effort, No use of accessory muscles and clear to auscultation bilaterally AUSCULTATION: clear to auscultation bilaterally Cardio: COMMON NORMALS: regular rate, regular rhythm, S1 normal heart sound present, S2 normal heart sound present and No murmurs present (Cardio) RATE: regular rate RHYTHM: regular rhythm HEART SOUNDS: S1 normal heart sound present and S2 normal heart sound present Extremity: GENERAL: No edema Urinary Catheter Management: Perdomo: Cath Placed During This Visit: yes Reason for Continuing Indwelling Catheter: Accurate Measurement of Urinary Output in Critically Ill Patients Urinary Catheter Date of Insertion: 11/01/24 Urinary Catheter Time of Insertion: 00:01 Data 11/14/24 04:22 11/16/24 13:05 A&P Assessment and plan 1. Systolic CHF: 2. Left ventricular apical thrombus: 3. Aortic stenosis: 4. Hypertension: 5. Type 2 diabetes mellitus: 6. GUS (acute kidney injury): Plan: Patient is transitioning to hospice care. We will sign off. PDMP PDMP Reviewed: Not Reviewed Attestations 2 Medical Necessity Statement*: per hospitalist Coding Level of Care Code Acute Code for [facility] Fwd Diagnoses Systolic CHF I50.20 Left ventricular apical thrombus I51.3 Aortic stenosis I35.0 Hypertension I10 Type 2 diabetes mellitus E11.9 GUS (acute kidney injury) N17.9
--- NOTE | 2024-11-17 12:30 | PC.SOCIAL ---
IMM Updated Updated pt's family on IMM. No questions voiced. Provided pt a copy. Initialed, dated, & timed copy in chart.
--- NOTE | 2024-11-17 13:47 | P.DS_ITS ---
Discharge Providers Date of Admission: 10/31/24 21:12 Date of Discharge: November 17, 2024 Attending Provider at Admission: Bhaskar Machado MD Attending Provider at Discharge: Jeff Healy MD Consults: Nephrology, Cardiology Diagnoses at Discharge Discharge Diagnosis 1. Acute systolic congestive heart failure: 2. Left ventricular apical thrombus: 3. Nonrheumatic aortic valve stenosis: 4. Primary hypertension: 5. Type 2 diabetes mellitus: 6. GUS (acute kidney injury): Reason for Visit Reason for Visit: confusion Brief History: 89 year old male presenting with confusi on 2/2 metabolic encephalopathy, acute HFrEF with EF of 17%, GUS and dehydration. Hospital Course Hospital Course 1. Acute HFrEF - Likely volume overloaded with generalized critical illness myopathy - Diuresis gently - Cardiology consulted--cardiology embraced hospice because patient long-term prognosis is very poor - Repeat chest x-ray with unilateral pleural effusion - echocardiogram -systolic cardiomyopathy 2. GUS (acute kidney injury): - Acute renal injury - unable to calculate GFR, level of CKD unknown at this time without prior labs. 3. Encephalopathy: - Multifactorial: 2/2 medical issues listed here - Presented with profound metabolic encephalopathy with critical illness myopathy - Bedside PT OT: minimal participation from patient during stay. 4. Dehydration: - Improved during admission. - Will check electrolytes and optimize accordingly 5. Critical illness myopathy: Diet: - Could not assist in feeding self and will not actually eat much. - placed on TPN during visit, discontinuing this with transfer to hospice. Disposition - Discussed with family at bedside. They are deciding on hospice facility at discharge. A facility has now agreed to accept the patient. Stopping TPN and other terminal press operator measures. OK for comfort feeding, discussed with family. Aspiration remains a risk, advised not to attempt to force feed, but can offer food if patient wants it. Physical Exam Const: COMMON NORMALS: no acute distress (not alert. Resting comfortably.) HENMT: COMMON NORMALS: normocephalic and atraumatic HEAD & SCALP: normocephalic and atraumatic MOUTH: Normal oral and palatal mucosa present Eye: COMMON NORMALS: Equal, round and reactive pupils present PUPIL: Yes Equal, round and reactive pupils present Resp: COMMON NORMALS: clear to auscultation bilaterally AUSCULTATION: clear to auscultation bilaterally Cardio: COMMON NORMALS: S1 normal heart sound present and S2 normal heart sound present HEART SOUNDS: S1 normal heart sound present, S2 normal heart s ound present, no gallops and no murmurs GI: COMMON NORMALS: Normal to inspection, nondistended, normoactive bowel sounds present Neuro: OTHER: unable to participate in neuro exam, no obvious FND. Skin: COMMON NORMALS: no rashes or lesions noted GENERAL SKIN EXAM: no rashes or lesions noted Urinary Catheter Management: Perdomo: Cath Placed During This Visit: yes Reason for Continuing Indwelling Catheter: Accurate Measurement of Urinary Output in Critically Ill Patients Urinary Catheter Date of Insertion: 11/01/24 Urinary Catheter Time of Insertion: 00:01 Discharge Data Studies Completed and Pending Completed Studies During Hospitalization Category Date Time Status CT abdomen pelvis wo con [id number] Stat Cat Scan 10/31/24 19:[address] chest abdomen pelvis [[place] [id number] Cat Scan 11/06/24 11:28 Completed ] Stat CT head wo con* [id number] Routine Cat Scan 11/08/24 06:[address] head wo con* [id number] Stat Cat Scan 10/31/24 18:[address] lumbar spine wo con* [id number] Routine Cat Scan 11/07/24 09:09 Completed CXRP [XR chest 1V portable [id number]] Stat Exams 11/11/24 22:39 Completed Fluoro guided lumbar puncture [FL guided lumbarpunc dx* Exams 11/07/24 09:57 Completed 17231] Routine XR chest 1V portable [id number] Routine Exams 11/13/24 11:25 Completed XR chest 1V portable [id number] Stat Exams 10/31/24 18:00 Completed MR head wo/w con [id number] Urgent MRI 11/05/24 18:23 Completed CV carotid duplex BI* [id number] Routine Ultrasound 11/04/24 18:23 Completed CV. echo complete* [id number] Routine Ultrasound 11/12/24 08:15 Completed Pending at discharge Category Date Time Status Vitamin B1 (Thiamine),Blood Routine Lab 11/04/24 18:23 Received Radiology Impressions Abdomen/Pelvis CT 10/31/24 19:15 IMPRESSION: There are no acute concerning abnormalities. Head MRI 11/05/24 18:23 IMPRESSION: 1. Normal diffusion imaging. No acute infarct. 2. 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 3. Moderate symmetric cerebral and cerebellar atrophy. 4. Study limited by motion. No abnormal enhancement identified. Chest/Abdomen/Pelvis CT 11/06/24 11:28 IMPRESSION: 1. Small bilateral pleural effusions. Compressive atelectasis in the lung bases. This is new compared to 10/31/2024 2. Prior partial hepatectomy. 3. Prior cholecystectomy. 4. Small supraumbilical hernia with small herniated loop of nonobstructed small bowel. This appears to have been mostly reduced compared to previous. Previously this contained a larger nonobstructed loop of small bowel 5. Prostamegaly. Perdomo catheter. 6. No other significant changes Lumbar Spine CT 11/07/24 09:09 IMPRESSION: 1. No evidence of acute discitis or paravertebral abscess. 2. Advanced spondylitic changes described above. 3. 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 Lumbar Puncture Fluoroscopy 11/07/24 09:57 IMPRESSION: Unsuccessful attempt at obtaining CSF fluid. Thecal sac access was achieved as a small amount of CSF was noted within the needle hub and the tubing. No significant amount of CSF was collected. This is probably due to patient's spinal stenosis. Patient has denied further attempts. Head CT 11/08/24 06:26 IMPRESSION: 1. No acute findings. 2. Incidental subcutaneous lesion along the right posterior neck. Chest X-Ray 11/13/24 11:25 Impression: 1. Decrease in bilateral pleural effusions and pulmonary vascular congestion. 2. No change in retrocardiac consolidation. 3. Atherosclerosis. Laboratory Results WBC 10.65 10^3/uL (3.29-11.43) 11/14/24 04:22 RBC 3.18 10^6/uL (3.85-5.65) L 11/14/24 04:22 Hgb 10.00 g/dL (11.27-16.99) L 11/14/24 04:22 Hct 29.5 % (37-53) L 11/14/24 04:22 MCV 92.8 fl (82-101) 11/14/24 04:22 MCH 31.4 pg (27-33) 11/14/24 04:22 MCHC 33.9 g/dL (30-55) 11/14/24 04:22 RDW 14.0 % (12.1-15.1) 11/14/24 04:22 Plt Count 70 10^3/cmm (157-399) L 11/14/24 04:22 MPV 11.9 fL (7.4-10.4) H 11/14/24 04:22 Neut % (Auto) 81.3 % 11/14/24 04:22 Lymph % (Auto) 9.6 % 11/14/24 04:22 Grant % (Auto) 8.2 % 11/14/24 04:22 Eos % (Auto) 0.1 % 11/14/24 04:22 Baso % (Auto) 0.2 % 11/14/24 04:22 Neut # (Auto) 8.67 10^3/uL (1.8-7.7) H 11/14/24 04:22 Lymph # (Auto) 1.0 10^3/uL (0.8-4.8) 11/14/24 04:22 Grant # (Auto) 0.9 10^3/uL (0.2-0.9) 11/14/24 04:22 Eos # (Auto) 0.0 10^3/uL (0.0-0.8) 11/14/24 04:22 Baso # (Auto) 0.0 10^3/uL (0.0-0.1) 11/14/24 04:22 Nucleated RBC % (auto) 0 % 11/14/24 04:22 Nucleated RBCs # 0.0 /100WBC 11/14/24 04:22 Specimen Type Arterial 10/31/24 21:03 Sample Site Brachial, right 10/31/24 21:03 ABG pH 7.20 (7.35-7.45) L 10/31/24 21:03 ABG pCO2 25.4 mmHg (35-45) L 10/31/24 21:03 ABG pO2 92.6 mmHg (80.0-100.0) 10/31/24 21:03 ABG PO2/FiO2 Ratio 440 10/31/24 21:03 ABG HCO3 9.9 mmol/L (22-26) L 10/31/24 21:03 ABG O2 Saturation 97.1 10/31/24 21:03 ABG Base Excess -16.6 mmol/L (-2.0-2.0) L 10/31/24 21:03 Lanre Test N/a 10/31/24 21:03 A-a O2 Gradient 3.0 mmHg (5-10) L 10/31/24 21:03 Hematocrit 36.3 % (42-52) L 10/31/24 21:03 Hgb O2 Saturation 95.5 % (95-100) 10/31/24 21:03 Carboxyhemoglobin 0.7 %THgb (0.4-20.1) 10/31/24 21:03 Methemoglobin 1.0 % (0.4-1.5) 10/31/24 21:03 Total Hemoglobin 11.9 g/dL (14-18) L 10/31/24 21:03 Sodium 135.0 mmol/L (131-143) 10/31/24 21:03 Potassium 4.9 mmol/L (3.5-5.0) 10/31/24 21:03 Glucose 113.0 mg/dL (70-115) 10/31/24 21:03 Ionized Calcium 1.2 mmol/L (1.1-1.4) 10/31/24 21:03 O2 Delivery Device Room air 10/31/24 21:03 FiO2 21.0 % 10/31/24 21:03 Foot Miter Operator ID [id number] 10/31/24 21:03 Sodium 136 mmol/L (136-145) 11/16/24 13:05 Potassium 3.9 mmol/L (3.5-5.1) 11/16/24 13:05 Chloride 99 mmol/L (98-107) 11/16/24 13:05 Carbon Dioxide 22 mmol/L (22-29) 11/16/24 13:05 Anion Gap 18.9 (5-19) 11/16/24 13:05 BUN 59 mg/dL (8-23) H 11/16/24 13:05 Creatinine 1.5 mg/dL (0.7-1.2) H 11/16/24 13:05 GFR Calculation Not Reportable 11/16/24 13:05 Glucose 199 mg/dL (65-115) H 11/16/24 13:05 POC Glucose 182 mg/dL (70-110) H 11/17/24 11:32 Estimat Average Glucose 126 10/31/24 18:11 Hemoglobin A1c 6.0 % (4.0-6.0) 10/31/24 18:11 Calculated Osmolality 304 mOsm/kg (285-295) H 11/16/24 13:05 Lactic Acid 0.7 mmol/L (0.5-2.2) 10/31/24 21:03 Calcium 8.6 mg/dL (8.5-10.5) 11/16/24 13:05 Phosphorus 3.0 mg/dL (2.5-4.5) 11/09/24 05:03 Magnesium 1.8 mg/dL (1.7-2.3) 11/09/24 05:03 Iron 77 ug/dL (59-158) 10/31/24 21:03 TIBC 184 mcg/dl 10/31/24 21:03 % Saturation 41.8 % (20-50) 10/31/24 21:03 Unsat Iron Binding 107 ug/dL (112-347) L 10/31/24 21:03 Total Bilirubin 0.7 mg/dL (0.15-1.2) 11/14/24 04:22 AST 25 U/L (0-40) 11/14/24 04:22 ALT 20 U/L (0-41) 11/14/24 04:22 Alkaline Phosphatase 63 U/L (40-130) 11/14/24 04:22 Creatine Kinase 142 U/L (39-308) 10/31/24 21:03 C-Reactive Protein 6.7 mg/L (0.0-4.9) H 10/31/24 18:11 NT-Pro-B Natriuret Pep 24898 pg/mL (0-450) H 11/12/24 05:45 Total Protein 5.6 g/dL (6.6-8.7) L 11/14/24 04:22 Albumin 2.8 g/dL (3.5-5.2) L 11/14/24 04:22 Globulin 2.8 g/dL (1.3-4.6) 11/14/24 04:22 Qxkmy-7-Zjhmgczbo 0.2 g/dL (0.2-0.3) 11/05/24 04:49 Xuwws-4-Cmmnnakqn 0.3 g/dL (0.5-0.9) L 11/05/24 04:49 Ghdd-1-Srrubjyd 0.2 g/dL (0.4-0.6) L 11/05/24 04:49 Teyj-7-Qfijbmgy 0.1 g/dL (0.2-0.5) L 11/05/24 04:49 Gamma Globulins 0.4 g/dL (0.8-1.7) L 11/05/24 04:49 Abnorm Protein Band 1 Not Reportable 11/05/24 04:49 Triglycerides 145 mg/dL (0-150) 11/01/24 05:18 Cholesterol 115 mg/dL (0-200) 11/01/24 05:18 LDL Cholesterol, Calc 58 mg/dL (50-129) 11/01/24 05:18 HDL Cholesterol 28 mg/dL (60-100) L 11/01/24 05:18 LDL/HDL Ratio 2.07 RATIO (0.00-3.22) 11/01/24 05:18 Cholesterol/HDL Ratio 4.11 mg/dL (1.0-5.00) 11/01/24 05:18 Apolipoprotein E E3/e3 11/05/24 04:49 Vitamin B12 318 pg/mL (232-1245) 11/05/24 04:49 Methylmalonic Acid 217 nmol/L (85-423) 11/05/24 04:49 25-OH Vitamin D Total 29 ng/mL (30-100) L 11/05/24 04:49 Folate 6.9 ng/mL (4.5-32.2) 11/05/24 04:49 Homocysteine 18.88 umol/l (0-15) H 11/05/24 04:49 Procalcitonin 0.18 ng/mL (0-0.5) 11/01/24 05:18 TSH 4.26 uIU/mL (0.27-4.20) H 11/05/24 04:49 Urine Color Yellow (Yellow) 11/01/24 10:30 Urine Appearance Cloudy (CLEAR) A 11/01/24 10:30 Urine pH 5.0 (5-7) 11/01/24 10:30 Ur Specific [place] 1.013 (1.005-1.030) 11/01/24 10:30 Urine Protein 1+ (Negative) A 11/01/24 10:30 Urine Glucose (UA) Negative (Normal) 11/01/24 10:30 Urine Ketones Negative (Negative) 11/01/24 10:30 Urine Blood 3+ (Negative) A 11/01/24 10:30 Urine Nitrate Negative (Negative) 11/01/24 10:30 Urine Bilirubin Negative (Negative) 11/01/24 10:30 Urine Urobilinogen 0.2 mg/dL (Negative) 11/01/24 10:30 Ur Leukocyte Esterase 2+ (Negative) A 11/01/24 10:30 Urine RBC 51-100 /hpf (0-2) H 11/01/24 10:30 Urine WBC 21-50 /hpf (0-5) H 11/01/24 10:30 Ur Squamous Epith Cells 0-5 /hpf (0-5) 11/01/24 10:30 Amorphous Sediment Not Reportable 11/01/24 10:30 Urine Bacteria None seen /hpf (NONE) 11/01/24 10:30 Hyaline Casts 4.52 /lpf 11/01/24 10:30 Ur Random Sodium 52 mmol/L 11/01/24 10:30 Ur Random Sodium 52 mmol/L 11/01/24 10:30 Ur Random Potassium 11 mmol/L 11/01/24 10:30 Ur Random Chloride 45 mmol/L 11/01/24 10:30 Ur Random Chloride 46 mmol/L 11/01/24 10:30 Urine Creatinine 69 mg/dL (39-259) 11/01/24 10:30 U Abnormal Prot Band 2 Not Reportable 11/05/24 04:49 U Abnormal Prot Band 3 Not Reportable 11/05/24 04:49 Urine Opiates Screen Negative ng/mL (Negative) 11/01/24 10:30 Ur Barbiturates Screen Negative ng/mL (Negative) 11/01/24 10:30 Ur Phencyclidine Scrn Negative ng/mL (Negative) 11/01/24 10:30 Ur Amphetamines Screen Negative ng/mL (Negative) 11/01/24 10:30 U Benzodiazepines Scrn Negative ng/mL (Negative) 11/01/24 10:30 Urine Cocaine Screen Negative ng/mL (Negative) 11/01/24 10:30 U Marijuana (THC) Screen Negative ng/mL (Negative) 11/01/24 10:30 Pro Electrophoresis Int See note 11/05/24 04:49 Serum Immunofixation Normal pattern. 11/05/24 04:49 URBAN IFA Animal Tis Res Negative (NEGATIVE) 11/02/24 04:13 ANCA Screen Negative (NEGATIVE) 11/01/24 11:08 ANCA Titer Not Reportable 11/01/24 11:08 ADRIENNE-1 Antibody <1.0 neg AI (<1.0 NEG) 11/02/24 04:13 SS-A Antibody <1.0 neg AI (<1.0 NEG) 11/02/24 04:13 SS-B Antibody <1.0 neg AI (<1.0 NEG) 11/02/24 04:13 Sm (Huerta) Antibody <1.0 neg AI (<1.0 NEG) 11/02/24 04:13 TELE GROUT SEWER LINE REPAIRER Antibody <1.0 neg AI (<1.0 NEG) 11/02/24 04:13 Scl-70 Antibody <1.0 neg AI (<1.0 NEG) 11/02/24 04:13 Anti-ds DNA IgG (Crith) Negative (NEGATIVE) 11/02/24 04:13 Centromere B Antibody <1.0 neg AI (<1.0 NEG) 11/02/24 04:13 Thyroid Peroxidase Ab <1 IU/mL (<9) 11/02/24 04:13 Complement C3 91 mg/dL (90-180) 11/01/24 11:08 Complement C3c 82 mg/dL 11/02/24 04:13 Complement C4 22 mg/dL (10-40) 11/01/24 11:08 Complement C4c 23 mg/dL 11/02/24 04:13 CH50 Classical Pathway 42 U/mL (31-60) 11/02/24 04:13 RPR w/Rflx to Titer Non-reactive (NON-REACTIVE) 11/05/24 04:49 T.pallidum Ab (FTA-ABS) Non-reactive 11/05/24 04:49 C. difficile (PCR) Negative (Negative) 11/02/24 06:15 Phosphorylated Tau 217 1.45 pg/mL (< OR = 0.15) H 11/05/24 04:49 Vitals Last Vital Signs Temp 97.7 F 11/17/24 11:24 Pulse 96 11/17/24 11:24 Resp 18 11/17/24 11:24 BP 113/65 11/17/24 11:24 Pulse Ox 96 11/17/24 11:24 O2 Del Method Room Air 11/17/24 11:24 O2 Flow Rate 3 11/16/24 07:32 Discharge Plan Discharge Patient Disposition: Hospice - Medical Facility Condition: Stable Prescriptions: Continued dorzolamide-timolol 22.3-6.8 mg/mL drops 1 drp ophthalmic (eye) BID Discontinued metformin 500 mg tablet 500 mg PO BID amlodipine 5 mg tablet 5 mg PO DAILY allopurinol 300 mg tablet 300 mg PO DAILY lisinopril 40 mg tablet 40 mg PO DAILY Inspector Type OK for DC: Hospitalist Discharge Order = DC NOW: Discharge Order (Routine); Ordered 11/17/24 Ordered By: Jeff Healy Referrals: [facility] [Outside] Discharge Diet: Advance as tolerated Discharge Activity: Resume usual activity Patient Instructions: Altered Mental Status (ED), Opioid Safety, Patient Portal & Jimbo Instructions Discharge Attestations Time Spent in Discharge Care*: greater than 30 min Quality Metrics Clinical Quality Measures [ No reported AMI, CVA or VTE this stay] Coding Level of Care Code Acute Code for Chg Fwd Diagnoses Acute systolic congestive heart failure I50.21 Heart failure chronicity: acute Left ventricular apical thrombus I51.3 Nonrheumatic aortic valve stenosis I35.0 Cardiac valve disease etiology: nonrheumatic Primary hypertension I10 Hypertension type: primary hypertension Type 2 diabetes mellitus E11.9 Diabetes mellitus terminal press operator insulin use: without terminal press operator use Diabetes mellitus complication detail: with chronic kidney disease Chronic kidney disease stage: unspecified stage GUS (acute kidney injury) N17.9
--- NOTE | 2024-11-17 14:54 | PC.OT ---
ATTEMPTED SKILLED OT TREATMENT, PER NURSING PT IS DISCHARGING TO SNF AND NO NEEDS AT THIS TIME.
[2024-11-17 15:36] VITALS: BP 131/70; PULSE 97; RESP 17; TEMP 36.6; O2SAT 98
--- NOTE | 2024-11-17 17:03 | P.PN_ITS ---
Subjective 2 Subjective: no new c/o Medications: Reviewed: Yes Vitals/I&O/Wt Last Vital Signs Temp 97.9 F 11/17/24 15:36 Pulse 97 11/17/24 15:36 Resp 17 11/17/24 15:36 BP 131/70 11/17/24 15:36 Pulse Ox 98 11/17/24 15:36 O2 Del Method Room Air 11/17/24 15:36 O2 Flow Rate 3 11/16/24 07:32 11/17/24 11/17/24 11/17/24 06:59 14:59 22:59 Intake Total 350 / 1220 40 / 40 50 / 90 Output Total 300 / 900 Balance 50 / 320 40 / 40 50 / 90 Weight last 48 hrs Weight 74.888 kg Weight 73.164 kg Physical Exam 2 Narrative: Elderly man,, cachectic in bed no apparent distress. vs noted heent- nc/at eomi neck supple lungs clear heart regular abd soft + bs ext no edema Urinary Catheter Management: Perdomo: Cath Placed During This Visit: yes Reason for Continuing Indwelling Catheter: Accurate Measurement of Urinary Output in Critically Ill Patients Urinary Catheter Date of Insertion: 11/01/24 Urinary Catheter Time of Insertion: 00:01 Data 11/14/24 04:22 11/16/24 13:05 A&P Assessment and plan 1. GUS (acute kidney injury): 1. Acute kidney injury: Associated with severe hyperkalemia and metabolic acidosis, likely prerenal etiology. Please also note patient has history of a partial nephrectomy. CT scan does not show any obstruction. Please follow-up serologies. So far negative - Cr stable in the mid 1 range 2. History of hypertension holding lisinopril. 3. History of diabetes hold, holding metformin 4. Dysphagia 5. Metabolic acidosis , Patient with poor p.o. intake and at risk for recurrent malnutrition and GUS's, and now getting PPN, , discuss goals of care with family and discuss hospice/comfort care Patient evaluated using audiovisual cart. Time spent 30 minutes Plan: see above PDMP PDMP Reviewed: Not Reviewed Attestations 2 Medical Necessity Statement*: per callie Coding Level of Care Code Acute Code for [facility] Fwd Diagnoses GUS (acute kidney injury) N17.9
== END 2024-11-17 18:30 | disposition skilled nursing facility (03) | DRG 682 ==
LOC: ER 20:27 → ICU 21:13 → MEDSURG 11-04 16:20
PROVIDERS: Hospitalist; Internal Medicine; Internal Medicine Nephrology; Student in an Organized Health Care Education/Training Program; Admitting Provider Family Medicine; Emergency Provider Emergency Medicine; Visit Provider Internal Medicine
DX: N17.0 Acute kidney failure with tubular necrosis (principal); G93.41 Metabolic encephalopathy; I50.21 Acute systolic (congestive) heart failure; J69.0 Pneumonitis due to inhalation of food and vomit; I24.0 Acute coronary thrombosis not resulting in myocardial infarction; G72.81 Critical illness myopathy; E87.20 Acidosis, unspecified; E46 Unspecified protein-calorie malnutrition; Z68.1 Body mass index [BMI] 19.9 or less, adult; I11.0 Hypertensive heart disease with heart failure; E11.9 Type 2 diabetes mellitus without complications; E86.0 Dehydration; E87.5 Hyperkalemia; I95.9 Hypotension, unspecified; R41.3 Other amnesia; R19.7 Diarrhea, unspecified; E87.6 Hypokalemia; E83.39 Other disorders of phosphorus metabolism; E83.42 Hypomagnesemia; R13.10 Dysphagia, unspecified; Z79.84 Long term (current) use of oral hypoglycemic drugs; Z90.5 Acquired absence of kidney
CPT/HCPCS: 36415; 36416; 36600; 51702; 62328; 70450; 70553; 71045; 71250; 72131; 74176; 80048; 80051; 80053; 80061; 80306; 81001; 82306; 82330; 82436; 82542; 82550; 82570; 82607; 82746; 82805; 82962; 83036; 83090; 83520; 83540; 83550; 83605; 83735; 83880; 83921; 84100; 84133; 84145; 84155; 84165; 84300; 84425; 84443; 85025; 86036; 86140; 86160; 86162; 86235; 86255; 86334; 86376; 86592; 86780; 87040; 87086; 87493; 92507; 92523; 92526; 92610; 93005; 93306; 93880; 94664; 96361; 96372; 96374; 96375; 96376; 97110; 97116; 97162; 97167; 97530; 97535; 99291; A4222; J0612; J0696; J1630; J1644; J1815; J1938; J2020; J2543; J3475; J3480; J3490; J7030; J7040; J7070; J7799; J9999; Q3014